=== PATIENT | male | born 1965 | race Caucasian/White ===

== ENCOUNTER → 2016-11-04 | Outpatient (CLI) | payer BC ==
[~2016-11-04] MED LIST: ALBU8.5H2 IH; ALPR1TAB2 PO; FLUT1DIS28 IH; HYDR-3730 PO
== END ==
LOC: PREOP 05:32
PROVIDERS: ATTEND Surgery
DX: Z01.818 Encounter for other preprocedural examination (principal); Z12.11 Encounter for screening for malignant neoplasm of colon

== ENCOUNTER 2016-11-05 07:41 | Day surgery (SDC) | payer BC ==
[~2016-11-05 07:41] MED LIST changes: -ALPR1TAB2 PO; -FLUT1DIS28 IH
[2016-11-05 08:35] VITALS: BP 102/74
[2016-11-05] MEDS ORDERED: NS IV 500 ML 500 ML IV ONE (08:45)
[2016-11-05] MEDS ORDERED: FLUMAZENIL (ROMAZICON) 0.1 MG/ML 5 ML VIAL INJ PRN (08:45)
[2016-11-05] MEDS ORDERED: NALOXONE 0.4 MG/ML 1 ML (NARCAN) VIAL IVP PRN (08:45)
[2016-11-05] MEDS ORDERED: NS IV 500 ML 500 ML ONE (09:05)
[2016-11-05] MEDS ORDERED: FLUT1DIS28 IH (09:09)
[2016-11-05] MEDS ORDERED: ALPR1TAB2 PO (09:09)
[2016-11-05] MEDS ORDERED: MIDAZOLAM 2 MG/2 ML (VERSED) VIAL ONE ×4 (10:37→10:44)
[2016-11-05] MEDS ORDERED: fentaNYL INJECTION 100 MCG/2 ML AMP ONE ×2 (10:37→10:44)
[2016-11-05] MEDS: fentaNYL INJECTION 100 MCG/2 ML AMP IVP PRN ×4 (10:40→10:50)
[2016-11-05] MEDS: MIDAZOLAM 2 MG/2 ML (VERSED) VIAL IVP PRN ×4 (10:41→10:51)
--- NOTE | 2016-11-05 10:50 | Conscious Sedation/ASA ---
Conscious Sedation Pre-Proced ASA Class: 2 Airway Mallampati Classification: ([place] appropriate class) I. II. III, IV Lungs Heart ASA score ASA 1: a normal healthy patient ASA 2: a patient with a mild systemic disease (mid diabetes, controlled hypertension, obesity ASA 3: a patient with a severe systemic disease that limits activity (angina , COPD, prior Myocardial infarction) ASA 4: a patient with an incapacitating disease that is a constant threat to life (CHF, renal failure) ASA 5: a moribund patient not expected to survive 24 hrs. (ruptured aneurysm) ASA 6: a declared brain patient whose organs are being harvested. For emergent operations, add the letter E after the classification Grade 2 Sedation Plan: Discussed options with patient/fam Note The patient is an appropriate candidate to undergo the planned procedure, sedation, and anesthesia. The patient immediately re-assessed prior to indication. JANIS DALLAS MD November 05, 2016 10:50 am
--- NOTE | 2016-11-05 11:09 | Endoscopy Procedure Report ---
Endoscopy Report Date: November 05, 2016 Preoperative Diagnosis: screening Study Performed: Colonoscopy Procedure Instrument: Colonoscope Endo Procedure/Findings Findings 1.: Polyp, Internal Hemorrhoids Recommendations: Recommendations: 1.: Colonoscopy in 2 years Copy Copies To 1: HERNAN MEYER MD, XAVIER M MD November 05, 2016 11:09 am
--- NOTE | 2016-11-05 11:14 | Discharge Inst-Simple/Standard ---
Discharge Inst-Standard Discharge Medications New, Converted or Re-Newed RX: Other Patient Instructions/Follow Up Plan of Care/Instructions/FU: repeat colonoscopy in 2 years Activity as Tolerated: Yes Discharge Diet: No Restrictions JANIS DALLAS MD November 05, 2016 11:14 am
[2016-11-05 11:35] VITALS: BP 111/76
[2016-11-05 11:56] VITALS: BP 114/76
[2016-11-05 11:57] VITALS: BP 114/76
--- NOTE | 2016-11-06 05:24 | OPERATIVE REPORT ---
DATE OF SERVICE: 11/05/2016 PROCEDURES: 1. Screening colonoscopy. 2. Snare polypectomy x1. SURGEON: Janis Dallas MD INDICATION OF PROCEDURE: This gentleman came in for screening colonoscopy. Informed consent was obtained after reviewing the procedure in detail. DESCRIPTION OF PROCEDURE: He was placed in left lateral decubitus position and his vital signs were monitored. Conscious sedation was achieved using Versed and fentanyl. Digital rectal examination was unremarkable. The colonoscope was then introduced in the rectum and advanced all the way up to cecum. The quality of bowel preparation was rather suboptimal. The scope was then withdrawn slowly and mucosa examined in a systematic fashion. FINDINGS: 1. Internal hemorrhoids. 2. A 4 mm polyp at the distal sigmoid colon that was snared and retrieved. He tolerated the procedure well and was taken back to the nursing area in the stable condition. IMPRESSION: Screening colonoscopy. Distal sigmoid polyp excised. Recommend repeat in two years. Job ID: [id number] DocumentID: [id number] Dictated Date: 11/05/2016 11:06:55 Coil Winder Strap Date: 11/06/2016 04:53:08 Dictated By: JANIS DALLAS MD
== END 2016-11-05 12:00 | disposition home or self-care (01) ==
LOC: ENDO 07:41
PROVIDERS: ATTEND Surgery
DX: Z12.11 Encounter for screening for malignant neoplasm of colon (principal); D12.5 Benign neoplasm of sigmoid colon; K64.9 Unspecified hemorrhoids
CPT/HCPCS: 88305

== ENCOUNTER → 2017-01-04 | Outpatient (CLI) | payer BC ==
[~2017-01-04] MED LIST changes: +ALPR1TAB2 PO; +FLUT1DIS28 IH
--- NOTE | 2017-01-04 13:15 | Diagnostic Imaging Report ---
PROCEDURE: CT abdomen and pelvis without contrast. TECHNIQUE: Multiple contiguous axial images were obtained through the abdomen and pelvis without the use of intravenous contrast. INDICATION: Severe abdominal pain. FINDINGS: The lung bases appear clear. The liver, gallbladder, spleen, pancreas, and adrenal glands appear unremarkable for an unenhanced exam. The kidneys demonstrate no hydronephrosis. No urinary tract stones are seen. The urinary bladder is not well distended. There are moderate amounts of fecal material in the colon with no evidence of bowel obstruction. The appendix appears normal. The abdominal aorta is normal in caliber. No periaortic significantly enlarged lymph nodes are seen. No fluid collection in the abdomen or pelvis is noted. The osseous structures demonstrate mild degenerative changes of the SI joints. IMPRESSION: No urinary tract stones. Unremarkable exam. Dictated by: Dictated on workstation # [id number]
== END ==
LOC: RAD 12:43
DX: R10.84 Generalized abdominal pain (principal); K92.1 Melena
CPT/HCPCS: 74176

== ENCOUNTER → 2017-01-07 | Outpatient (CLI) | payer BC ==
[~2017-01-07] MED LIST changes: +PANT40TA2 PO
== END ==
LOC: PREOP 11:38
PROVIDERS: ATTEND Surgery
DX: Z01.818 Encounter for other preprocedural examination (principal); R19.5 Other fecal abnormalities; K21.9 Gastro-esophageal reflux disease without esophagitis

== ENCOUNTER 2017-01-08 06:55 | Day surgery (SDC) | payer BC ==
[~2017-01-08] VITALS: Ht 188 cm; Wt 89.8 kg
[~2017-01-08 06:55] MED LIST changes: -PANT40TA2 PO
[2017-01-08] MEDS ORDERED: NS IV 500 ML 500 ML ONE (07:26)
[2017-01-08] MEDS ORDERED: HURRICAINE EXT TUBE (BENZOCAINE) XX PRN (07:30)
[2017-01-08] MEDS ORDERED: FLUMAZENIL (ROMAZICON) 0.1 MG/ML 5 ML VIAL INJ PRN (07:30)
[2017-01-08] MEDS ORDERED: NALOXONE 0.4 MG/ML 1 ML (NARCAN) VIAL IVP PRN (07:30)
[2017-01-08] MEDS ORDERED: fentaNYL INJECTION 100 MCG/2 ML AMP ONE (07:37)
[2017-01-08] MEDS ORDERED: MIDAZOLAM 2 MG/2 ML (VERSED) VIAL ONE ×4 (07:37)
[2017-01-08] MEDS: NS IV 500 ML 500 ML IV SCH ×3 (07:42→08:23)
[2017-01-08] MEDS: MIDAZOLAM 2 MG/2 ML (VERSED) VIAL IVP PRN ×4 (07:52→08:03)
[2017-01-08] MEDS: fentaNYL INJECTION 100 MCG/2 ML AMP IVP PRN ×2 (07:53→08:00)
--- NOTE | 2017-01-08 08:09 | Conscious Sedation/ASA ---
Conscious Sedation Pre-Proced Time Reviewed: 07:45 ASA Class: 2 Airway Mallampati Classification: ([place] appropriate class) I. II. III, IV Lungs Heart ASA score ASA 1: a normal healthy patient ASA 2: a patient with a mild systemic disease (mid diabetes, controlled hypertension, obesity ASA 3: a patient with a severe systemic disease that limits activity (angina , COPD, prior Myocardial infarction) ASA 4: a patient with an incapacitating disease that is a constant threat to life (CHF, renal failure) ASA 5: a moribund patient not expected to survive 24 hrs. (ruptured aneurysm) ASA 6: a declared brain patient whose organs are being harvested. For emergent operations, add the letter E after the classification Grade 2 Sedation Plan: Discussed options with patient/fam Note The patient is an appropriate candidate to undergo the planned procedure, sedation, and anesthesia. The patient immediately re-assessed prior to indication. JANIS DALLAS MD Jan 08, 2017 8:09 am
--- NOTE | 2017-01-08 08:12 | Endoscopy Procedure Report ---
Endoscopy Report Date: Jan 08, 2017 Preoperative Diagnosis: melena Study Performed: Upper Endoscopy Procedure Instrument: Endoscope Endo Procedure/Findings Findings 1.: Hiatal Hernia, Gastritis Recommendations: Recommendations: 1.: Start Medication(s) Copy Copies To 1: HERNAN MEYER MD, XAVIER M MD Jan 08, 2017 8:12 am
[2017-01-08] MEDS ORDERED: PANT40TA2 PO (08:15)
--- NOTE | 2017-01-08 08:16 | Discharge Inst-Simple/Standard ---
Discharge Inst-Standard Discharge Medications New, Converted or Re-Newed RX: RX on Chart Patient Instructions/Follow Up Plan of Care/Instructions/FU: to avoid nonsteroidals and aspirin. Follow-up with me in 2 weeks Activity as Tolerated: Yes Discharge Diet: No Restrictions JANIS DALLAS MD Jan 08, 2017 8:16 am
[2017-01-08] MEDS ORDERED: HURRICAINE EXT TUBE (BENZOCAINE) ONE (08:17)
[2017-01-08 08:30] VITALS: BP 110/74
[2017-01-08 08:42] VITALS: BP 107/77
[2017-01-08 09:00] VITALS: BP 112/81
[2017-01-08 09:30] VITALS: BP 112/81
--- NOTE | 2017-01-08 11:45 | PROCEDURE REPORT ---
PROCEDURE PHYSICIAN: JANIS DALLAS DATE OF PROCEDURE: 01/08/2017 PROCEDURE: Upper GI endoscopy with antral biopsy. SURGEON: Dr. Dallas. INDICATION FOR THE PROCEDURE: This gentleman has developed new onset of constipation over the past 5 days, along with melena. Once constipation was addressed by magnesium citrate, he returned for an upper endoscopy to evaluate the source of melena. It is notable that he had recently undergone colonoscopy revealing a small adenomatous polyp that was excised. Informed consent was obtained after reviewing the procedure in detail. DESCRIPTION OF PROCEDURE: He was placed in the left lateral decubitus position and his vital signs were monitored. Conscious sedation was achieved using Versed and fentanyl. The flexible gastroscope was introduced down the esophagus, past the stomach, into the proximal duodenum. FINDINGS: ESOPHAGUS: A short hiatal hernia with minimal esophagitis (grade I) extending for less than a centimeter, still in the esophagus. STOMACH: Mild distal gastritis without any ulceration. Biopsies obtained for Helicobacter status. DUODENUM: Normal. He tolerated the procedure well and was taken back to the nursing area in a stable condition. IMPRESSION: Melena. No definitive ulcer found on upper endoscopy. We will use proton pump inhibitors and observe. If melena continues, capsule endoscopy to investigate the small bowel will be obtained. Job ID: [id number] Dictated Date: 01/08/2017 08:15:02 Dehairing Machine Tender Date: 01/08/2017 11:32:39 / tbk
--- OUTSIDE RECORDS SUMMARY | 2017-01-12 06:24 | XMS REPORT | Continuity of Care Document ---
Author Author [facility] Organization [facility] Address Unknown Phone Unavailable Allergies Active Description Code Type Severity Reaction Onset Reported/Identified Relationship to Patient Clinical Status Yes cephalexin [id number] Drug Allergy Unknown N/A 10/26/2014 Yes Penicillins [id number] Drug Allergy Unknown N/A 10/26/2014 Medications Problems Date Dx Coded Attending Type Code Diagnosis Diagnosed By 11/01/2014 EARL BEAL MD Ot 727.40 11/01/2014 EARL BEAL MD Ot V72.84 11/01/2014 EARL BEAL MD Ot 214.8 LIPOMA NEC 03/18/2015 EARL BEAL MD Ot 727.40 03/18/2015 EARL BEAL MD Ot V72.84 11/02/2016 EARL BEAL MD Ot 727.40 SYNOVIAL CYST NOS 11/02/2016 EARL BEAL MD Ot V72.84 EXAM PRE-OPERATIVE NOS 11/02/2016 EARL BEAL MD Ot 727.40 SYNOVIAL CYST NOS 11/02/2016 EARL BEAL MD Ot V72.84 EXAM PRE-OPERATIVE NOS 11/05/2016 EARL BEAL MD Ot 727.40 SYNOVIAL CYST NOS 11/05/2016 EARL BEAL MD Ot V72.84 EXAM PRE-OPERATIVE NOS 11/05/2016 JANIS DALLAS MD Ot D12.5 BENIGN NEOPLASM OF SIGMOID COLON 11/05/2016 JANIS DALLAS MD Ot K64.9 UNSPECIFIED HEMORRHOIDS 11/05/2016 JANIS DALLAS MD Ot Z12.11 ENCOUNTER FOR SCREENING FOR MALIGNANT NE 11/09/2016 JANIS DALLAS MD Ot D12.5 BENIGN NEOPLASM OF SIGMOID COLON 11/09/2016 JANIS DALLAS MD Ot K64.9 UNSPECIFIED HEMORRHOIDS 11/09/2016 JANIS DALLAS MD Ot Z12.11 ENCOUNTER FOR SCREENING FOR MALIGNANT NE 11/10/2016 BURT SHAVER, JANIS Mcdonnell Ot D12.5 BENIGN NEOPLASM OF SIGMOID COLON 11/10/2016 JANIS DALLAS MD Ot K64.9 UNSPECIFIED HEMORRHOIDS 11/10/2016 JANIS DALLAS MD Ot Z12.11 ENCOUNTER FOR SCREENING FOR MALIGNANT NE 01/04/2017 EARL BEAL MD Ot 727.40 SYNOVIAL CYST NOS 01/04/2017 EARL BEAL MD Ot V72.84 EXAM PRE-OPERATIVE NOS 01/04/2017 JANIS DALLAS MD Ot Z01.818 ENCOUNTER FOR OTHER PREPROCEDURAL EXAMIN 01/04/2017 JANIS DALLAS MD Ot Z12.11 ENCOUNTER FOR SCREENING FOR MALIGNANT NE 01/06/2017 YOSELIN MACHUCA MMA FIGHTER Ot K92.1 MELENA 01/06/2017 YOSELIN MACHUCA MMA FIGHTER Ot R10.84 GENERALIZED ABDOMINAL PAIN 01/07/2017 EARL BEAL MD Ot 727.40 SYNOVIAL CYST NOS 01/07/2017 EARL BEAL MD Ot V72.84 EXAM PRE-OPERATIVE NOS 01/07/2017 JANIS DALLAS MD Ot Z01.818 ENCOUNTER FOR OTHER PREPROCEDURAL EXAMIN 01/07/2017 JANIS DALLAS MD Ot Z12.11 ENCOUNTER FOR SCREENING FOR MALIGNANT NE 01/07/2017 YOSELIN MACHUCA L MMA FIGHTER Ot K92.1 MELENA 01/07/2017 YOSELIN MACHUCA MMA FIGHTER Ot R10.84 GENERALIZED ABDOMINAL PAIN Procedures Results Encounters ACCT No. Visit Date/Time Discharge Status Pt. Type Provider Facility Loc./Unit Complaint [id number] 01/08/2017 06:55:00 2016 09:30:00 DIS Outpatient JANIS DALLAS MD [facility] ENDO BLACK TARRY STOOLS/GERD [id number] 11/05/2016 07:41:00 2016 12:00:00 DIS Outpatient JANIS DALLAS MD [facility] ENDO SCREENING [id number] 11/01/2014 09:23:00 2014 13:35:00 DIS Outpatient EARL BEAL MD [facility] SYNOVIAL CYST OF LEFT SHOULDER [id number] 10/26/2014 09:42:00 2014 23:59:59 CLS Outpatient EMIGDIO SHAVER, EARL [facility] PREOP SYNOVIAL CYST TO LEFT SHOULDER [id number] 01/07/2017 11:38:00 ACT Outpatient BURT SHAVER, JANIS Mcdonnell [facility] PREOP EGD [id number] 01/04/2017 12:43:00 ACT Outpatient YOSELIN MACHUCA APRN [facility] RAD SEVERE ABD PAIN [id number] 11/04/2016 05:32:00 ACT Outpatient BURT SHAVER, JANIS Mcdonnell [facility] PREOP SCREENING
== END 2017-01-08 09:30 | disposition home or self-care (01) ==
LOC: ENDO 06:55
PROVIDERS: ATTEND Surgery
DX: K92.1 Melena (principal); K20.9 Esophagitis, unspecified; K29.70 Gastritis, unspecified, without bleeding; K44.9 Diaphragmatic hernia without obstruction or gangrene; K59.00 Constipation, unspecified; J44.9 Chronic obstructive pulmonary disease, unspecified; F41.9 Anxiety disorder, unspecified

== ENCOUNTER 2017-01-26 09:32 | Outpatient (CLI) | payer BC ==
[~2017-01-26] VITALS: Ht 188 cm; Wt 97.5 kg
[~2017-01-26 09:32] MED LIST changes: +PANT40TA2 PO
[2017-01-26] MEDS ORDERED: PANT40TA2 PO ×2 (09:58)
[2017-01-26] MEDS ORDERED: ATOR10TA66 PO ×2 (10:10)
[2017-01-26] MEDS ORDERED: ESCI10TA PO ×2 (10:10)
[2017-01-29] MEDS ORDERED: HYDR-3820 PO ×2 (12:15)
[2017-01-29] MEDS ORDERED: METR500T PO ×2 (12:16)
== END 2017-01-26 10:13 ==
LOC: PREOP 09:32
PROVIDERS: ATTEND Surgery
DX: Z01.818 Encounter for other preprocedural examination (principal); K64.9 Unspecified hemorrhoids

== ENCOUNTER 2017-01-29 07:53 | Day surgery (SDC) | payer BC ==
[~2017-01-29] VITALS: Ht 188 cm; Wt 97.5 kg
[~2017-01-29 07:53] MED LIST changes: +ATOR10TA66 PO; +BUP/EPI 0.25% 1:200,000 (MARCAINE) 10 ML VIAL IJ ONE; +ESCI10TA PO
[2017-01-29] MEDS ORDERED: FAMOTIDINE 20MG/2ML IV (PEPCID) IV ONE (08:30)
[2017-01-29] MEDS ORDERED: RT-ALBUTEROL SULF 2.5 MG/3 ML PRE-MIX VIAL INH ONE (08:30)
[2017-01-29] MEDS ORDERED: ceFAZolin 1 GM/NS 50 ML IVPB IV ONE ×2 (08:30)
[2017-01-29] MEDS: LACTATED RINGERS 1,000 ML IV PRN ×2 (08:42→10:12)
[2017-01-29 08:46] VITALS: BP 113/80
[2017-01-29] MEDS ORDERED: MIDAZOLAM 2 MG/2 ML (VERSED) VIAL ONE (09:20)
[2017-01-29] MEDS ORDERED: fentaNYL INJECTION 100 MCG/2 ML AMP ONE (09:20)
[2017-01-29] MEDS ORDERED: CLINDAMYCIN 600 MG/4ML (CLEOCIN) VIAL ONE (09:25)
[2017-01-29] MEDS ORDERED: NS (IVPB) 50 ML ONE (09:25)
--- NOTE | 2017-01-29 09:25 | Progress Note-Pre Operative ---
Pre-Operative Progress Note H&P Reviewed The H&P was reviewed, patient examined and no changes noted. Date Seen by Provider: Jan 29, 2017 Time Seen by Provider: 09:25 Date H&P Reviewed: Jan 29, 2017 Time H&P Reviewed: :25 Pre-Operative Diagnosis: prolapsing hemorrhoids JANIS DALLAS MD Jan 29, 2017 9:25 am
[2017-01-29] MEDS ORDERED: CLINDAMYCIN 600 MG/NS 50 ML IVPB IV ONE ×2 (09:45)
[2017-01-29] MEDS ORDERED: morphine INJ 10 MG/ML 1ML (SYR OR VIAL) ONE (10:17)
[2017-01-29] MEDS ORDERED: LIDOCAINE PF 2% 5 ML (XYLOCAINE) VIAL ONE (10:30)
[2017-01-29] MEDS ORDERED: proPOfol 200 MG/20 ML (DIPRIVAN) VIAL IV ONE ×2 (10:30→10:31)
[2017-01-29] MEDS ORDERED: SEVOFLURANE (ULTANE) 15 ML INHAL SOLN ONE (10:30)
[2017-01-29] MEDS ORDERED: DEXAMETHASONE PF 10 MG/ML (DECADRON) VIAL ONE (10:31)
[2017-01-29] MEDS ORDERED: LACTATED RINGERS 1,000 ML IV ONE ×2 (10:31)
[2017-01-29] MEDS ORDERED: ROCURONIUM 50 MG/5 ML (ZEMURON) VIAL IV ONE (10:31)
[2017-01-29] MEDS ORDERED: ONDANSETRON 4 MG/2 ML (SDV) Z0FRAN ONE (10:31)
[2017-01-29] MEDS ORDERED: MEPERIDINE (DEMEROL) INJ 50 MG/ML ONE (10:47)
[2017-01-29] MEDS: MEPERIDINE (DEMEROL) INJ 50 MG/ML IVP PRN ×2 (10:50→11:00)
[2017-01-29] MEDS: morphine INJ 10 MG/ML 1ML (SYR OR VIAL) IVP PRN ×2 (11:05→11:10)
[2017-01-29] MEDS ORDERED: PROMETHAZINE INJ 25 MG/ML (PHENERGAN) AMP ONE (11:11)
[2017-01-29] MEDS ORDERED: PROMETHAZINE INJ 25 MG/ML (PHENERGAN) AMP IVP PRN (11:15)
[2017-01-29] MEDS ORDERED: ONDANSETRON 4 MG/2 ML (SDV) Z0FRAN IVP PRN (11:15)
[2017-01-29 11:50] VITALS: BP 127/86
--- NOTE | 2017-01-29 12:14 | Operative Report ---
Operative Report Date of Procedure/Surgery Jan 29, 2017 Surgeon (s) JANIS DALLAS MD Filament Cutter (s): not applicable Post-Operative Diagnosis same Procedure Performed stapled hemorrhoidal pexy Description of Procedure Anesthesia Type: General Estimated blood loss (mL): minimal Specimen(s) collected/removed hemorrhoidal tissue Description of the Procedure Indication for procedure: This gentleman presented with symptomatic prolapsing, grade 3 hemorrhoids requiring surgical therapy. He was offered minimally invasive surgery using stapled hemorrhoidopexy. Informed consent was obtained after reviewing the procedure in detail. Description of the procedure: Initially, he was placed supine on the gurney and general anesthesia induced using an endotracheal tube. Subsequently, he was turned prone onto the operating table and his pressure areas were padded and protected. Sequential compression devices were placed around his legs, to minimize the risk of venous thrombosis. Using the circular dilating anoscope,that was secured with 0 silk sutures, a cuff of rectal mucosa, 4 cm proximal to the dentate line was encircled with 2-0 Prolene suture. The anvil of a 33 mm EEA stapler ( PPH device) was introduced into the rectum and the pursestring tied around it. The stapler was then closed, pressure held for 30 seconds and activated. We obtained a cuff of rectal mucosa, 2 cm wide, which was sent for histologic examination. An area of bleeding along the anterior aspect of the staple line was controlled with a 3-0 Vicryl transfixation suture. Rigid proctoscopy is performed to ensure the intactness of the rectal lumen. The patient was then turned supine before being extubated and taken to the recovery room in a stable condition. Findings of the Procedure [place] operative report Allergies and Home Medications Allergies Coded Allergies: Penicillins (Unverified Allergy, Unknown, 01/26/17) cephalexin (Unverified Allergy, Unknown, 01/26/17) Home Medications Albuterol 8.5 Gm Hfa.aer.ad, 1 PUFF IH RTQ4HR PRN for WHEEZING, (Reported) PRN WHEEZING Alprazolam 1 Mg Tablet, 1 MG PO BID, (Reported) Atorvastatin Calcium 10 Mg Tablet, 10 MG PO HS, (Reported) Escitalopram Oxalate 10 Mg Tablet, 10 MG PO DAILY, (Reported) Fluticasone/Salmeterol 1 Each Blst.w.dev, 1 EACH IH BID, (Reported) Pantoprazole Sodium 40 Mg Tablet.dr, 40 MG PO DAILY, (Reported) JANIS DALLAS MD Jan 29, 2017 12:14 pm
[2017-01-29] MEDS ORDERED: HYDR-3820 PO (12:15)
[2017-01-29] MEDS ORDERED: METR500T PO (12:16)
--- NOTE | 2017-01-29 12:17 | Discharge Inst-Simple/Standard ---
Discharge Inst-Standard Discharge Medications New, Converted or Re-Newed RX: RX on Chart Patient Instructions/Follow Up Plan of Care/Instructions/FU: stool softeners as needed. Follow-up in a month. Activity as Tolerated: No Goal: off work for a week Discharge Diet: No Restrictions JANIS DALLAS MD Jan 29, 2017 12:16 pm
[2017-01-29 12:20] VITALS: BP 122/76
[2017-01-29 12:50] VITALS: BP 112/74
== END 2017-01-29 13:30 | disposition home or self-care (01) ==
LOC: SDC 07:53
PROVIDERS: ATTEND Surgery
DX: K64.2 Third degree hemorrhoids (principal); E78.5 Hyperlipidemia, unspecified; J45.909 Unspecified asthma, uncomplicated; F41.9 Anxiety disorder, unspecified; Z87.891 Personal history of nicotine dependence; Z79.899 Other long term (current) drug therapy
CPT/HCPCS: 87081; 94640; 94664

== ENCOUNTER → 2017-02-04 | Outpatient (CLI) | payer BC ==
[~2017-02-04] MED LIST changes: -BUP/EPI 0.25% 1:200,000 (MARCAINE) 10 ML VIAL IJ ONE; +CYCL10TA9 PO; +HYDR-3820 PO; +METR500T PO; +TRAM-42 PO
--- NOTE | 2017-02-04 11:46 | Diagnostic Imaging Report ---
Right upper extremity vascular duplex ultrasound of the veins. INDICATION: Phlebitis. Pain in the right arm after IV access at the antecubital fossa. Findings: There is a thrombosis seen in the basilic vein which extends from the antecubital fossa to its course in the arm without extending into the deep veins. The right internal jugular, subclavian, axillary, brachial, radial and the ulnar veins are patent with color-flow, compressibility applicable and normal venous waveforms seen. Impression: Superficial venous stenosis involving the basilic vein from the antecubital fossae to the proximal arm without extending into the deep veins. Report was faxed to office of Dr. Fairchild by anish at 11:48 am. Dictated by: Dictated on workstation # [id number]
== END ==
LOC: RAD 10:32
PROVIDERS: ATTEND Surgery
DX: I82.601 Acute embolism and thrombosis of unspecified veins of right upper extremity (principal)

== ENCOUNTER 2017-02-17 20:45 | Emergency (ER) | payer BC ==
[~2017-02-17] VITALS: Ht 188 cm; Wt 97.5 kg
[~2017-02-17 20:45] MED LIST changes: -CYCL10TA9 PO; -TRAM-42 PO
[2017-02-17 21:06] LABS: BASOPHILS % (AUTO) 0 % (0-10); EOSINOPHILS # (AUTO) 0.2 10^3/uL (0.0-0.3); EOSINOPHILS % (AUTO) 3 % (0-10); LYMPHOCYTES # (AUTO) 2.4 X 10^3 (1.0-4.0); LYMPHOCYTES % (AUTO) 27 % (12-44); MEAN CORPUSCULAR HEMOGLOBIN 31 PG (25-34); MEAN CORPUSCULAR HGB CONC 35 G/DL (32-36); MEAN CORPUSCULAR VOLUME 89 FL (80-99); MEAN PLATELET VOLUME 9.5 FL (7.4-10.4); MONOCYTES # (AUTO) 1.1 X 10^3 (0.0-1.0); MONOCYTES % (AUTO) 13 % (0-12); NEUTROPHILS # (AUTO) 5.1 X 10^3 (1.8-7.8); NEUTROPHILS % (AUTO) 57 % (42-75); PLATELET COUNT 282 10^3/uL (130-400); RED BLOOD COUNT 4.38 10^6/uL (4.35-5.85); WHITE BLOOD COUNT 8.9 10^3/uL (4.3-11.0)
--- NOTE | 2017-02-17 21:14 | ED Chest Pain ---
General Chief Complaint: General Problems/Pain Stated Complaint: RT ARM PAIN Source: patient, EMS History of Present Illness Time seen by provider: 20:46 Initial Comments PT ARRIVES [facility]IA [facility] FROM HOME IN [place] CALLED EMS FOR CHEST PAIN/PAIN IN RIGHT AXILLA, ON ARRIVAL AT SCENE, EMS REPORT THAT PT WAS COMPLETELY HYSTERICAL AND HYPERVENTILATING AND HAVING SEVERE CARPAL- PEDAL SPASMS. EMS GAVE ATIVAN X 2 MG TOTAL PLUS 25 MCG FENTANYL WITH IMPROVEMENT IN SYMPTOMS PT STATES HE WAS SITTING/LAYING AND WATCHING TV TONIGHT BETWEEN 1800 AND 1900 AND STATES HIS RIGHT ARM FELL ASLEEP, AND BEGAN TO HAVE PAIN IN RIGHT AXILLA AND RIGHT SIDE OF CHEST--ANTERIOR AND POSTERIOR, THEN BEGAN TO FEEL SHORT OF BREATH. PT STATES LAST PM AROUND 2200, HE WAS HAVING NUMBNESS AND TINGLING IN IN RIGHT FINGERTIPS AND HAND AND WRIST, AND "THE VEINS IN MY ARM WOULD STICK OUT AND YOU COULD SEE ALL THE CLOTS IN THE VEINS" STATES HE COULDN'T SLEEP, BUT WORKED ALL DAY TODAY AND DID NOT HAVE ANY PROBLEMS PT HAD HEMORRHOIDECTOMY 3 WEEKS AGO--01/29/[address] DALLAS BEGAN TO HAVE RIGHT ARM SWELLING AND PAIN AND NUMBNESS/TINGLING AND WAS SEEN AT HOSPITAL IN [place], [place] AND DX WITH BLOOD CLOTS IN RIGHT ARM--FELT TO BE FROM IV SITE FROM SURGERY--STARTED ON [facility]--WAS THERE 02/12/17 HAS AN APPOINTMENT WITH [facility] IN [place] ON Wednesday02/23/17 PT HAD OUTPATIENT ULTRASOUND OF RIGHT ARM DONE HERE 02/04/17, ORDERED BY DR. DALLAS, AND SHOWED SUPERFICIAL VENOUS THROMBUS FROM AC FOSSA TO PROXIMAL ARM, WITHOUT INVOLVEMENT OF DEEP VEINS. NO RX PRESCRIBED, PER PT. SWELLING IS GONE IN ARM, AND PAIN AND NUMBNESS AND TINGLING HAD BEEN GONE UNTIL LAST EVENING. NO FEVER + MILD NON-PRODUCTIVE COUGH NO SWELLING IN ARMS OR LEGS HAS NOT ATTEMPTED TO CONTACT OR FOLLOW UP WITH DR. MEYER FOR THESE PROBLEMS PCP: DR. MEYER SURGEON: DR. DALLAS Allergies and Home Medications Allergies Coded Allergies: Penicillins (Unverified Allergy, Unknown, 01/26/17) cephalexin (Unverified Allergy, Unknown, 01/26/17) Home Medications Albuterol 8.5 Gm Hfa.aer.ad, 1 PUFF IH RTQ4HR PRN for WHEEZING, (Reported) PRN WHEEZING Alprazolam 1 Mg Tablet, 1 MG PO BID, (Reported) Atorvastatin Calcium 10 Mg Tablet, 10 MG PO HS, (Reported) Cyclobenzaprine HCl 10 Mg Tablet, 10 MG PO Q8H, #15 Prescribed by: VENKAT CAMPOS on 02/17/17 2322 Escitalopram Oxalate 10 Mg Tablet, 10 MG PO DAILY, (Reported) Fluticasone/Salmeterol 1 Each Blst.w.dev, 1 EACH IH BID, (Reported) Hydrocodone/Acetaminophen 1 Each Tablet, 1 TAB PO Q4H PRN for PAIN-MILD TO MODERATE, #30 Ref 0 Prescribed by: JANIS DALLAS on 01/29/17 1215 Metronidazole 500 Mg Tablet, 500 MG PO TID for 5 Days, #15 Ref 0 Prescribed by: JANIS DALLAS on 01/29/17 1216 Pantoprazole Sodium 40 Mg Tablet.dr, 40 MG PO DAILY, (Reported) Tramadol HCl 50 Mg Tablet, 50 MG PO Q4H, #20 Prescribed by: VENKAT CAMPOS on 02/17/17 2322 Review of Systems Constitutional: see HPI EENTM: No Symptoms Reported Respiratory: See HPI, Cough, Shortness of Air, Denies Wheezing Cardiovascular: See HPI, Chest Pain, Denies Edema, Denies Lightheadedness, Denies Palpitations, Denies Syncope Gastrointestinal: No Symptoms Reported Genitourinary: No Symptoms Reported Musculoskeletal: see HPI Skin: no symptoms reported Psychiatric/Neurological: See HPI, Anxiety, Denies Headache, Numbness, Paresthesia, Tingling, Denies Weakness Endocrine: No Symptoms Reported Hematologic/Lymphatic: No Symptoms Reported Past Aypzkpt-Zpnvlb-Czxgxv Hx Patient Social History Alcohol Use: Denies Use Recreational Drug Use: Yes (DENIES , BUT TESTED + FOR THC ON 02/17/17) Smoking Status: Current Everyday Smoker (QUIT SMOKING REGULAR CIGARETTES--1/2 PPD--5 YEARS AGO, NOW SMOKES E-CIGARETTES) Type Used: Cigarettes, Electronic/Vapor Recent Hopitalizations: Yes Immunizations Up To Date Tetanus Booster (TDap): Unknown Seasonal Allergies Seasonal Allergies: Yes Surgeries HX Surgeries: Yes (SINUS SX, EYE SX FOR LAZY EYE, BILATERAL KNEE SCOPES, 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; BENIGN TUMOR/SYNOVIAL CYST NEAR LEFT SHOULDER; SINUS SURGERY; HEMORRHOIDECTOMY; EGD) Surgeries: Eye Surgery, Orthopedic, Rectal Respiratory Hx Respiratory Disorders: Yes Respiratory Disorders: Asthma Cardiovascular Hx Cardiac Disorders: Yes (DVT RIGHT ARM 02/2017 POST-OP) Cardiac Disorders: Deep Vein Thrombosis, High Cholesterol Neurological Hx Neurological Disorders: Yes Neurological Disorders: Headaches /Migraines Reproductive System Hx Reproductive Disorders: No Sexually Transmitted Disease: No HIV/AIDS: No Genitourinary Hx Genitourinary Disorders: No Gastrointestinal Hx Gastrointestinal Disorders: Yes (HEMORRHOIDS; GASTRITIS) Gastrointestinal Disorders: Gastroesophageal Reflux, Chronic Constipation, Polyps, Esophagitis, Hiatal Hernia Musculoskeletal Hx Musculoskeletal Disorders: No Endocrine Hx Endocrine Disorders: No HEENT HX ENT Disorders: Yes (READING GLASSES) Loss of Vision: Bilateral Hearing Impairment: Denies Cancer Hx Cancer: No Psychosocial Hx Psychiatric Problems: Yes Behavioral Health Disorders: Anxiety Integumentary HX Skin/Integumentary Disorder: No Blood Transfusions Hx Blood Disorders: No Adverse Reaction to a Blood Tr: No (N/A) Physical Exam Vital Signs Vital Sign - Last 12Hours 02/17/17 20:45 Temp 97.6 Pulse 61 Resp 20 B/P (MAP) 115/87 Pulse Ox 96 O2 Delivery Room Air Capillary Refill : General Appearance: No Apparent Distress, Anxious (VERY ANXIOUS, HYPERVENTILATING, TALKS RAPIDLY NON-STOP), Other (PT HOLDING RIGHT ARM VERY STIFF AND CONSTANTLY FLEXING/TENSING ARM AND RUBBING AXILLA AND LATERAL PECTORAL MUSCLE AREA.) HEENT: PERRL/EOMI Neck: Full Range of Motion, Normal Inspection, Non Tender, Supple, No Carotid Bruit, No JVD Respiratory: Normal Breath Sounds, Other (HYPERVENTILATING; TENDERNESS TO RIGHT AXILLA AND LATERAL PECTORAL MUSCLE AREA. PALPATION REPRODUCES PAIN) Cardiovascular: Regular Rate, Rhythm, No Edema, No JVD, No Murmur, Normal Peripheral Pulses Gastrointestinal: Normal Bowel Sounds, No Organomegaly, No Pulsatile Mass, Non Tender, Soft Extremity: Normal Capillary Refill, Normal Inspection, Normal Range of Motion, Non Tender, No Calf Tenderness, No Pedal Edema, Other (MILD TENDERNESS TO RIGHT AXILLA/LATERAL PECTORAL AREA--PALPATION REPRODUCES PAIN ) Neurologic/Psychiatric: Alert, Oriented x3, No Motor/Sensory Deficits, outreach manager II- XII Norm as Tested Skin: Normal Color, Warm/Dry Progress/Results/Core Measures Results/Orders Lab Results Laboratory Tests Test 02/17/17 20:55 02/17/17 21:23 Range/Units White Blood Count 8.9 4.3-11.0 10^3/uL Red Blood Count 4.38 4.35-5.85 10^6/uL Hemoglobin 13.6 13.3-17.7 G/DL Hematocrit 39 L 40-54 % Mean Corpuscular Volume 89 80-99 FL Mean Corpuscular Hemoglobin 31 25-34 PG Mean Corpuscular Hemoglobin Concent 35 32-36 G/DL Red Cell Distribution Width 12.0 10.0-14.5 % Platelet Count 282 130-400 10^3/uL Mean Platelet Volume 9.5 7.4-10.4 FL Neutrophils (%) (Auto) 57 42-75 % Lymphocytes (%) (Auto) 27 12-44 % Monocytes (%) (Auto) 13 H 0-12 % Eosinophils (%) (Auto) 3 0-10 % Basophils (%) (Auto) 0 0-10 % Neutrophils # (Auto) 5.1 1.8-7.8 X 10^3 Lymphocytes # (Auto) 2.4 1.0-4.0 X 10^3 Monocytes # (Auto) 1.1 H 0.0-1.0 X 10^3 Eosinophils # (Auto) 0.2 0.0-0.3 10^3/uL Basophils # (Auto) 0.0 0.0-0.1 10^3/uL Prothrombin Time 17.4 H 12.2-14.7 SEC INR Comment 1.4 0.8-1.4 Activated Partial Thromboplast Time 37 H 24-35 SEC Sodium Level 141 135-145 MMOL/L Potassium Level 3.6 3.6-5.0 MMOL/L Chloride Level 110 H 98-107 MMOL/L Carbon Dioxide Level 22 21-32 MMOL/L Anion Gap 9 5-14 MMOL/L Blood Urea Nitrogen 22 H 7-18 MG/DL Creatinine 1.07 0.60-1.30 MG/DL Estimat Glomerular Filtration Rate > 60 BUN/Creatinine Ratio 21 Glucose Level 102 70-105 MG/DL Calcium Level 9.1 8.5-10.1 MG/DL Total Bilirubin 0.4 0.1-1.0 MG/DL Aspartate Amino Transf (AST/SGOT) 85 H 5-34 U/L Alanine Aminotransferase (ALT/SGPT) 168 H 0-55 U/L Alkaline Phosphatase 81 40-136 U/L Total Creatine Kinase 58 30-200 U/L Creatine Kinase MB 0.5 <6.6 NG/ML Troponin I < 0.30 <0.30 NG/ML B-Type Natriuretic Peptide < 10.0 <100.0 PG/ML Total Protein 6.2 L 6.4-8.2 GM/DL Albumin 3.8 3.2-4.5 GM/DL Amylase Level 79 25-125 U/L Lipase 49 8-78 U/L Serum Alcohol < 10 <10 MG/DL Urine Opiates Screen NEGATIVE NEGATIVE Urine Oxycodone Screen NEGATIVE NEGATIVE Urine Methadone Screen NEGATIVE NEGATIVE Urine Propoxyphene Screen NEGATIVE NEGATIVE Urine Barbiturates Screen NEGATIVE NEGATIVE Ur Tricyclic Antidepressants Screen NEGATIVE NEGATIVE Urine Phencyclidine Screen NEGATIVE NEGATIVE Urine Amphetamines Screen NEGATIVE NEGATIVE Urine Methamphetamines Screen NEGATIVE NEGATIVE Urine Benzodiazepines Screen POSITIVE H NEGATIVE Urine Cocaine Screen NEGATIVE NEGATIVE Urine Cannabinoids Screen POSITIVE H NEGATIVE My Orders Orders - VENKAT CAMPOS DO Amylase (02/17/17 21:01) Cbc With Automated Diff (02/17/17 21:) Comprehensive Metabolic Panel (02/17/17 21:) Creatine Kinase (02/17/17 21:) Creatine Kinase Mb (02/17/17 21:) Lipase (02/17/17 21:01) Partial Thromboplastin Time (02/17/17 21:) Protime With Inr (02/17/17 21:) Troponin I (02/17/17 21:01) Chest 1 View, Ap/Pa Only (02/17/17 21:01) O2 (02/17/17 21:) Ekg Tracing (02/17/17 21:) Aspirin Chewable Tablet (Baby Aspirin Ch (02/17/17 21:15) Rx-Nitroglycerin Sl Tabs (Rx-Nitrostat S (02/17/17 21:15) BNP (02/17/17 21:01) Monitor-Rhythm Ecg Trace Only (02/17/17 21:01) Alcohol (02/17/17 21:01) Drug Screen Stat (Urine) (02/17/17 21:01) Hepatitis Panel Acute (02/17/17 21:32) Ct Angio Chest W (02/17/17 21:33) Lorazepam Injection (Ativan Injection) (02/17/17 22:00) Iohexol Injection (Omnipaque 350 Mg/Ml 1 (02/17/17 22:00) Ns (Ivpb) (Sodium Chloride 0.9% Ivpb Bag (02/17/17 22:00) Ketorolac Injection (Toradol Injection) (02/17/17 23:15) Rx-Cyclobenzaprine Tablet (Rx-Flexeril T (02/17/17 23:23) Rx-Tramadol Hcl (Rx-Ultram) (02/17/17 23:23) Medications Given in ED Current Medications Medications Dose Ordered Sig/Nubia Route Start Time Stop Time Status Last Admin Dose Admin Aspirin 324 mg ONCE ONCE PO 02/17/17 21:15 02/17/17 21:16 DC 02/17/17 21:04 324 MG Iohexol 125 ml ONCE ONCE IV 02/17/17 22:00 02/17/17 22:06 DC 02/17/17 22:11 125 ML Ketorolac Tromethamine 30 mg ONCE ONCE IVP 02/17/17 23:15 02/17/17 23:16 DC 02/17/17 23:14 30 MG Lorazepam 2 mg ONCE ONCE IVP 02/17/17 22:00 02/17/17 22:01 DC 02/17/17 22:05 2 MG Nitroglycerin 0.4 mg UD PRN SL 02/17/17 21:15 02/17/17 23:44 DC 02/17/17 21:06 0.4 MG Sodium Chloride 80 ml ONCE ONCE IV 02/17/17 22:00 02/17/17 22:06 DC 02/17/17 22:11 80 ML Vital Signs/I&O Vital Sign - Last 12Hours 02/17/17 02/17/17 20:45 23:33 Temp 97.6 97.8 Pulse 61 71 Resp 20 21 B/P (MAP) 115/87 Pulse Ox 96 97 O2 Delivery Room Air Room Air Progress Note : Progress Note NO CHEST PAIN IN ER PT BECAME ANXIOUS WHEN HE GOT TO CT SCAN--ATIVAN GIVEN WITH IMPROVEMENT 1110--C/O PAIN IN RIGHT AXILLA--TORADOL GIVEN. SYMPTOMS RESOLVED. ECG Initial ECG Impression Time: 21:05 Initial ECG Rate: 59 Initial ECG Rhythm: Normal Sinus Initial ECG Impression: Normal Initial ECG Comparisson: No Previous ECG Available Diagnostic Imaging Comments CXR--NO ACUTE PROCESS, PER RADIOLOGIST REPORT @ 0775 CT CHEST ANGIOGRAM--NO P.E., TRACE PERICARDIAL EFFUSION, CORONARY ARTERY ATHEROSCLEROTIC CALCIFICATIONS NOTED. NO ACUTE PROCESS, PER [facility] VIA FAX @ 0200 Reviewed: Reviewed by Me Departure Impression Impression: Primary Impression: Right-sided chest wall pain Additional Impressions: RECENT SUPERFICIAL THROMBOPHLEBITIS OF RIGHT ARM, POST-OP/IV INSERTION SITE Severe anxiety with panic Anxiety hyperventilation Disposition: HOME, SELF-CARE Condition: Improved Departure-Patient Inst. Referrals: HERNAN MEYER MD (PCP/Family) Primary Care Physician Patient Instructions: Anxiety, Adult (DC), Chest Pain That Is Not Caused by the Heart (DC), Hyperventilation, Muscle and Bone Pain (DC), Superficial Phlebitis Add. Discharge Instructions: MOIST HEAT TO AREA AT 20 MINUTE INTERVALS CONTINUE YOUR MEDICATIONS PRESCRIBED FOLLOW UP WITH DR. MEYER IN 2-3 DAYS KEEP YOUR APPOINTMENT WITH [facility] NEXT WEEK SCHEDULED RETURN TO ER IF SYMPTOMS WORSEN All discharge instructions reviewed with patient and/or family. Voiced understanding. Scripts Cyclobenzaprine HCl (Cyclobenzaprine HCl) 10 Mg Tablet 10 MG PO Q8H, #15 TAB Prov: VENKAT CAMPOS DO 02/17/17 Tramadol HCl (Ultram) 50 Mg Tablet 50 MG PO Q4H, #20 TAB Prov: VENKAT CAMPOS DO 02/17/17 VENKAT CAMPOS DO Feb 17, 2017 21:14
[2017-02-17] MEDS ORDERED: RX-NITROGLYCERIN 0.4 MG TAB BTL 25'S SL PRN (21:15)
[2017-02-17] MEDS ORDERED: ASPIRIN 81 MG CHEW (CHILDREN'S ASA) PO ONE (21:15)
[2017-02-17 21:16] LABS: INR 1.4 (0.8-1.4); PROTHROMBIN TIME PATIENT 17.4 SEC (12.2-14.7)
[2017-02-17 21:30] LABS: ALANINE AMINOTRANSFERASE 168 U/L (0-55); ALBUMIN 3.8 GM/DL (3.2-4.5); ALCOHOL < 10 MG/DL (<10); AMYLASE 79 U/L (25-125); ANION GAP 9 MMOL/L (5-14); ASPARTATE AMINO TRANSFERASE 85 U/L (5-34); BILIRUBIN,TOTAL 0.4 MG/DL (0.1-1.0); BLOOD UREA NITROGEN 22 MG/DL (7-18); BUN/CREATININE RATIO 21; CALCIUM 9.1 MG/DL (8.5-10.1); CARBON DIOXIDE 22 MMOL/L (21-32); CHLORIDE 110 MMOL/L (98-107); CREATINE KINASE 58 U/L (30-200); CREATININE SERUM 1.07 MG/DL (0.60-1.30); GFR ESTIMATED > 60; GLUCOSE 102 MG/DL (70-105); LIPASE 49 U/L (8-78); POTASSIUM 3.6 MMOL/L (3.6-5.0); SODIUM 141 MMOL/L (135-145); TOTAL PROTEIN 6.2 GM/DL (6.4-8.2)
[2017-02-17 21:37] LABS: TROPONIN I < 0.30 NG/ML (<0.30)
--- NOTE | 2017-02-17 21:39 | Diagnostic Imaging Report ---
INDICATION: Chest pain COMPARISON: None FINDINGS: Single frontal view of the chest demonstrates normal heart size and pulmonary vascularity. The lungs are well aerated and clear. No large pleural effusion or pneumothorax is seen. The visualized osseous structures show no acute abnormalities. IMPRESSION: 1. No acute cardiopulmonary process. Dictated by: Dictated on workstation # [id number]
[2017-02-17] MEDS ORDERED: LORazepam INJ 2 MG/ML (ATIVAN) VIAL IVP ONE (22:00)
[2017-02-17] MEDS ORDERED: NS 100 ML (IVPB) BAG IV ONE (22:00)
[2017-02-17] MEDS ORDERED: IOHEXOL 350 MG/ML 150 ML (OMNIPAQUE 350) VIAL IV ONE (22:00)
[2017-02-17] MEDS ORDERED: KETOROLAC 30 MG/ML VIAL IVP ONE (23:15)
[2017-02-17] MEDS ORDERED: CYCL10TA9 PO (23:22)
[2017-02-17] MEDS ORDERED: TRAM-42 PO (23:22)
[2017-02-17] MEDS ORDERED: RX-CYCLOBENZAPRINE 10 MG (FLEXERIL) TAB PPK#3 PO STA (23:23)
[2017-02-17] MEDS ORDERED: RX-TRAMADOL 50 MG (ULTRAM) TAB PPK#4 PO STA (23:23)
[2017-02-17 23:33] VITALS: BP 99/65
--- NOTE | 2017-02-18 09:52 | Diagnostic Imaging Report ---
PROCEDURE: CT angiography of the chest with contrast. TECHNIQUE: Multiple contiguous axial images were obtained through the chest after uneventful bolus administration of intravenous contrast. Reconstructed CTA MIP acquisitions were also performed. INDICATION: Chest pain and right arm pain. Comparison study: CT of the abdomen/ pelvis from 01/04/2017. FINDINGS: No pulmonary emboli, aortic dissection, or aneurysm is present. Heart size is normal. No pleural or pericardial effusions are present. There is no abnormal adenopathy. Visualized portions of the abdomen appear normal. The lungs are clear. IMPRESSION: Normal CTA of the chest. Dictated by: Dictated on workstation # [id number]
== END 2017-02-17 23:33 | disposition home or self-care (01) ==
LOC: EDUNIT# 20:45 → ER 20:46
DX: R07.89 Other chest pain (principal)
CPT/HCPCS: 36415; 71010; 71275; 80053; 80074; 80306; 80320; 82150; 82550; 82553; 83690; 83880; 84484; 85025; 85610; 85730; 93041; 96374; 96375

== ENCOUNTER → 2017-10-08 | Outpatient (CLI) | payer BC ==
[~2017-10-08] MED LIST changes: +CYCL10TA9 PO; +TRAM-42 PO
--- NOTE | 2017-10-08 10:07 | Diagnostic Imaging Report ---
PA and lateral chest at 925 hours. INDICATION: Chest wall pain. FINDINGS: Heart size is within normal limits and stable when compared to 02/17/2017. The epicardial fat pad near the apex of the heart seen on the prior study is again evident. The lungs are clear and perhaps mildly hyperexpanded. There is no evidence for failure, pneumonia or for pleural effusion. The mediastinum is not widened. The osseous structures are intact. The long-standing fracture of left clavicle seen previously is not well-visualized on this exam. There may also be a long-standing fracture of the tip of the right clavicle. There is no acute bony abnormality identified. IMPRESSION: There is no evidence for an acute cardiopulmonary abnormality. Dictated by: Dictated on workstation # [id number]
== END ==
LOC: RAD 08:48
PROVIDERS: ATTEND Family Medicine
DX: R07.89 Other chest pain (principal)
CPT/HCPCS: 71046

== ENCOUNTER 2018-09-05 23:03 | Emergency (ER) | payer BC ==
[~2018-09-05] VITALS: Ht 188 cm; Wt 99.8 kg
--- OUTSIDE RECORDS SUMMARY | 2018-09-05 23:11 | XMS REPORT | Continuity of Care Document ---
Author Author [facility] Organization [facility] Address Unknown Phone Unavailable Allergies Active Description Code Type Severity Reaction Onset Reported/Identified Relationship to Patient Clinical Status Yes cephalexin [id number] Drug Allergy Unknown N/A 01/26/2017 Yes Penicillins [id number] Drug Allergy Unknown N/A 01/26/2017 Medications There is no data. Problems Date Dx Coded Attending Type Code [...] ENCOUNTER FOR SCREENING FOR MALIGNANT NE 01/04/2017 EMIGDIO SHAVER, EARL Ot 727.40 SYNOVIAL CYST NOS 01/04/2017 EARL BEAL MD Ot V72.84 EXAM PRE-OPERATIVE NOS 01/04/2017 JANIS DALLAS MD Ot Z01.818 ENCOUNTER FOR OTHER PREPROCEDURAL EXAMIN 01/04/2017 JANIS DALLAS MD Ot Z12.11 ENCOUNTER FOR SCREENING FOR MALIGNANT NE 01/06/2017 MACHUCAYOSELIN BALDWIN ALGEBRA TUTOR Ot K92.1 MELENA 01/06/2017 YOSELIN MACHUCA L ALGEBRA TUTOR Ot R10.84 GENERALIZED ABDOMINAL PAIN 01/07/2017 EARL BEAL MD Ot 727.40 SYNOVIAL CYST NOS 01/07/2017 EARL BEAL MD Ot V72.84 EXAM PRE-OPERATIVE NOS 01/07/2017 BURT SHAVER, JANIS Mcdonnell Ot Z01.818 ENCOUNTER FOR OTHER PREPROCEDURAL EXAMIN 01/07/2017 JANIS DALLAS MD Ot Z12.11 ENCOUNTER FOR SCREENING FOR MALIGNANT NE 01/07/2017 CHASE MACHUCAI L ALGEBRA TUTOR Ot K92.1 MELENA 01/07/2017 CHASE MACHUCAI L ALGEBRA TUTOR Ot R10.84 GENERALIZED ABDOMINAL PAIN 01/08/2017 BURT SHAVER, JANIS Mcdonnell Ot F41.9 ANXIETY DISORDER, UNSPECIFIED 01/08/2017 BURT SHAVER, JANIS Mcdonnell Ot J44.9 CHRONIC OBSTRUCTIVE PULMONARY DISEASE, U 01/08/2017 JANIS DALLAS MD Ot K20.9 ESOPHAGITIS, UNSPECIFIED 01/08/2017 JANIS DALLAS MD Ot K29.70 GASTRITIS, UNSPECIFIED, WITHOUT BLEEDING 01/08/2017 JANIS DALLAS MD Ot K44.9 DIAPHRAGMATIC HERNIA WITHOUT OBSTRUCTION 01/08/2017 JANIS DALLAS MD Ot K59.00 CONSTIPATION, UNSPECIFIED 01/08/2017 JANIS DALLAS MD Ot K92.1 MELENA 01/26/2017 JANIS DALLAS MD, Ot K64.9 UNSPECIFIED HEMORRHOIDS 01/26/2017 BURT SHAVER, JANIS Mcdonnell Ot Z01.818 ENCOUNTER FOR OTHER PREPROCEDURAL EXAMIN 01/27/2017 JANIS DALLAS MD Ot K64.9 UNSPECIFIED HEMORRHOIDS 01/27/2017 BURT SHAVER, JANIS Mcdonnell Ot Z01.818 ENCOUNTER FOR OTHER PREPROCEDURAL EXAMIN 01/29/2017 JANIS DALLAS MD Ot E78.5 HYPERLIPIDEMIA, UNSPECIFIED 01/29/2017 JANIS DALLAS MD Ot F41.9 ANXIETY DISORDER, UNSPECIFIED 01/29/2017 BURT SHAVER, JANIS Mcdonnell Ot J45.909 UNSPECIFIED ASTHMA, UNCOMPLICATED 01/29/2017 BURT SHAVER, JANIS Mcdonnell Ot K64.2 THIRD DEGREE HEMORRHOIDS 01/29/2017 BURT SHAVER, JANIS Mcodnnell Ot Z79.899 OTHER ACADEMY DIRECTOR (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 THERAPY 01/29/2017 JANIS DALLAS MD Ot Z87.891 PERSONAL HISTORY OF NICOTINE DEPENDENCE 02/04/2017 EMIGDIO SHAVER, EARL Ot 727.40 SYNOVIAL CYST NOS 02/04/2017 EARL BEAL MD Ot V72.84 EXAM PRE-OPERATIVE NOS 02/04/2017 BURT SHAVER, JANIS Mcdonnell Ot Z01.818 ENCOUNTER FOR OTHER PREPROCEDURAL EXAMIN 02/04/2017 JANIS DALLAS MD Ot Z12.11 ENCOUNTER FOR SCREENING FOR MALIGNANT NE 02/04/2017 YOSELIN MACHUCA ALGEBRA TUTOR Ot K92.1 MELENA 02/04/2017 YOSELIN MACHUCA ALGEBRA TUTOR Ot R10.84 GENERALIZED ABDOMINAL PAIN 02/04/2017 JANIS DALLAS MD Ot K21.9 GASTRO-ESOPHAGEAL REFLUX DISEASE WITHOUT 02/04/2017 JANIS DALLAS MD Ot R19.5 OTHER FECAL ABNORMALITIES 02/04/2017 JANIS DALLAS MD Ot Z01.818 ENCOUNTER FOR OTHER PREPROCEDURAL EXAMIN 02/10/2017 YOSELIN MACHUCA ALGEBRA TUTOR Ot K92.1 MELENA 02/10/2017 YOSELIN MACHUCA ALGEBRA TUTOR Ot R10.84 GENERALIZED ABDOMINAL PAIN 02/12/2017 JANIS DALLAS MD Ot E78.5 HYPERLIPIDEMIA, UNSPECIFIED 02/12/2017 JANIS DALLAS MD Ot F41.9 ANXIETY DISORDER, UNSPECIFIED 02/12/2017 BURT SHAVER, JANIS Mcdonnell Ot J45.909 UNSPECIFIED ASTHMA, UNCOMPLICATED 02/12/2017 BURT SHAVER, JANIS Mcdonnell Ot K64.2 THIRD DEGREE HEMORRHOIDS 02/12/2017 BURT SHAVER, JANIS Mcdonnell Ot Z79.899 OTHER SKILLED NURSING (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 THERAPY 02/12/2017 BURT SHAVER, JANIS Mcdonnell Ot Z87.891 PERSONAL HISTORY OF NICOTINE DEPENDENCE 02/17/2017 BETH DO, VENKAT K Ot E78.00 PURE HYPERCHOLESTEROLEMIA, UNSPECIFIED 02/17/2017 BETH DO, VENKAT K Ot F41.0 PANIC DISORDER WITHOUT AGORAPHOBIA 02/17/2017 BETH DO, VENKAT K Ot F41.9 ANXIETY DISORDER, UNSPECIFIED 02/17/2017 BETH DO, VENKAT K Ot G43.909 MIGRAINE, UNSP, NOT INTRACTABLE, WITHOUT 02/17/2017 BETH DO, VENKAT K Ot I80.8 PHLEBITIS AND THROMBOPHLEBITIS OF OTHER 02/17/2017 BETH DO, VENKAT K Ot J45.909 UNSPECIFIED ASTHMA, UNCOMPLICATED 02/17/2017 BETH DO, VENKAT K Ot K21.9 GASTRO-ESOPHAGEAL REFLUX DISEASE WITHOUT 02/17/2017 BETH DO, VENKAT K Ot R07.89 OTHER CHEST PAIN 02/17/2017 BETH DO VENKAT K Ot Z86.010 PERSONAL HISTORY OF COLONIC POLYPS 02/17/2017 BETH DO VENKAT K Ot Z86.718 PERSONAL HISTORY OF OTHER VENOUS THROMBO 02/17/2017 BETH DO VENKAT K Ot Z87.19 PERSONAL HISTORY OF OTHER DISEASES OF TH 02/17/2017 BETH DO VENKAT K Ot Z87.891 PERSONAL HISTORY OF NICOTINE DEPENDENCE 02/19/2017 BTEH DO, VENKAT K Ot R07.89 OTHER CHEST PAIN 02/22/2017 BETH DO, VENKAT K Ot E78.00 PURE HYPERCHOLESTEROLEMIA, UNSPECIFIED 02/22/2017 BETH DO, VENKAT K Ot F41.0 PANIC DISORDER WITHOUT AGORAPHOBIA 02/22/2017 BETH DO VENKAT K Ot F41.9 ANXIETY DISORDER, UNSPECIFIED 02/22/2017 BETH DO VENKAT K Ot G43.909 MIGRAINE, UNSP, NOT INTRACTABLE, WITHOUT 02/22/2017 VENKAT CAMPOS DO Ot I80.8 PHLEBITIS AND THROMBOPHLEBITIS OF OTHER 02/22/2017 VENKAT CAMPOS DO Ot J45.909 UNSPECIFIED ASTHMA, UNCOMPLICATED 02/22/2017 VENKAT CAMPOS DO Ot K21.9 GASTRO-ESOPHAGEAL REFLUX DISEASE WITHOUT 02/22/2017 VENKAT CAMPOS DO Ot R07.89 OTHER CHEST PAIN 02/22/2017 VENKAT CAMPOS DO Ot Z86.010 PERSONAL HISTORY OF COLONIC POLYPS 02/22/2017 VENKAT CAMPOS DO Ot Z86.718 PERSONAL HISTORY OF OTHER VENOUS THROMBO 02/22/2017 VENKAT CAMPOS DO Ot Z87.19 PERSONAL HISTORY OF OTHER DISEASES OF TH 02/22/2017 VENKAT CAMPOS DO Ot Z87.891 PERSONAL HISTORY OF NICOTINE DEPENDENCE 03/17/2017 BURT SHAVER, JANIS Mcdonnell Ot I82.601 ACUTE EMBOLISM AND THOMBOS UNSP VEINS OF 10/11/2017 HERNAN MEYER MD Ot R07.89 OTHER CHEST PAIN 11/10/2017 HERNAN MEYER MD Ot R07.89 OTHER CHEST PAIN Procedures There is no data. Results Test Result Range Methicillin resistant Staphylococcus aureus (MRSA) screening culture - 08:05 Methicillin resistant Staphylococcus aureus (MRSA) screening culture NEG NRG Complete blood count (CBC) with automated white blood cell (WBC) differential - 02/17/17 20:55 Blood leukocytes automated count (number/volume) 8.9 10*3/uL 4.3-11.0 Blood erythrocytes automated count (number/volume) 4.38 10*6/uL 4.35-5.85 Venous blood hemoglobin measurement (mass/volume) 13.6 g/dL 13.3-17.7 Blood hematocrit (volume fraction) 39 % 40-54 Automated erythrocyte mean corpuscular volume 89 [foz_us] 80-99 Automated erythrocyte mean corpuscular hemoglobin (mass per erythrocyte) 31 pg 25-34 Automated erythrocyte mean corpuscular hemoglobin concentration measurement ( mass/volume) 35 g/dL 32-36 Automated erythrocyte distribution width ratio 12.0 % 10.0-14.5 Automated blood platelet count (count/volume) 282 10*3/uL 130-400 Automated blood platelet mean volume measurement 9.5 [foz_us] 7.4-10.4 Automated blood neutrophils/100 leukocytes 57 % 42-75 Automated blood lymphocytes/100 leukocytes 27 % 12-44 Blood monocytes/100 leukocytes 13 % 0-12 Automated blood eosinophils/100 leukocytes 3 % 0-10 Automated blood basophils/100 leukocytes 0 % 0-10 Blood neutrophils automated count (number/volume) 5.1 10*3 1.8-7.8 Blood lymphocytes automated count (number/volume) 2.4 10*3 1.0-4.0 Blood monocytes automated count (number/volume) 1.1 10*3 0.0-1.0 Automated eosinophil count 0.2 10*3/uL 0.0-0.3 Automated blood basophil count (count/volume) 0.0 10*3/uL 0.0-0.1 PT panel in platelet poor plasma by coagulation assay - 02/17/17 20:55 Prothrombin time (PT) in platelet poor plasma by coagulation assay 17.4 s 12.2-14.7 INR in platelet poor plasma or blood by coagulation assay 1.4 0.8-1.4 Activated partial thromboplastin time (aPTT) in platelet poor plasma bycoagulation assay - 02/17/17 20:55 Activated partial thromboplastin time (aPTT) in platelet poor plasma bycoagulation assay 37 s 24-35 Comprehensive metabolic panel - 02/17/17 20:55 Serum or plasma sodium measurement (moles/volume) 141 mmol/L 135-145 Serum or plasma potassium measurement (moles/volume) 3.6 mmol/L 3.6-5.0 Serum or plasma chloride measurement (moles/volume) 110 mmol/L 98-107 Carbon dioxide 22 mmol/L 21-32 Serum or plasma anion gap determination (moles/volume) 9 mmol/L 5-14 Serum or plasma urea nitrogen measurement (mass/volume) 22 mg/dL 7-18 Serum or plasma creatinine measurement (mass/volume) 1.07 mg/dL 0.60-1.30 Serum or plasma urea nitrogen/creatinine mass ratio 21 NRG Serum or plasma creatinine measurement with calculation of estimated glomerular filtration rate > NRG Serum or plasma glucose measurement (mass/volume) 102 mg/dL 70-105 Serum or plasma calcium measurement (mass/volume) 9.1 mg/dL 8.5-10.1 Serum or plasma total bilirubin measurement (mass/volume) 0.4 mg/dL 0.1-1.0 Serum or plasma alkaline phosphatase measurement (enzymatic activity/volume) 81 U/L 40-136 Serum or plasma aspartate aminotransferase measurement (enzymatic activity/ volume) 85 U/L 5-34 Serum or plasma alanine aminotransferase measurement (enzymatic activity/volume ) 168 U/L 0-55 Serum or plasma protein measurement (mass/volume) 6.2 g/dL 6.4-8.2 Serum or plasma albumin measurement (mass/volume) 3.8 g/dL 3.2-4.5 Serum or plasma creatine kinase measurement (enzymatic activity/volume) - 02/17 20:55 Serum or plasma creatine kinase measurement (enzymatic activity/volume) 58 U/L 30-200 Serum or plasma creatine kinase MB measurement (enzymatic activity/volume) - 20:55 Serum or plasma creatine kinase MB measurement (enzymatic activity/volume) 0.5 ng/mL <6.6 Serum or plasma amylase measurement (enzymatic activity/volume) - 02/17/17 20: 55 Serum or plasma amylase measurement (enzymatic activity/volume) 79 U /L 25-125 Serum or plasma troponin i.cardiac measurement (mass/volume) - 02/17/17 20:55 Serum or plasma troponin i.cardiac measurement (mass/volume) < ng/ mL <0.30 Lipase - 02/17/17 20:55 Lipase 49 U/L 8-78 Serum or plasma amylase measurement (enzymatic activity/volume) - 02/17/17 20: 55 Serum or plasma amylase measurement (enzymatic activity/volume) 79 U /L 25-125 Lipase - 02/17/17 20:55 Lipase 49 U/L 8-78 Serum or plasma ethanol measurement (mass/volume) - 02/17/17 20:55 Serum or plasma ethanol measurement (mass/volume) < mg/dL <10 Serum or plasma lithium measurement (moles/volume) - 02/17/17 20:55 BNP level < pg/mL <100.0 Acute hepatitis panel - 02/17/17 20:55 Confirmatory quantitative serum or plasma hepatitis B virus surface antigen measurement Non-Reactive Non-Reactive Hepatitis A virus IgM antibody assay Non-Reactive Non- Reactive Hepatitis B virus core IgM antibody assay Non-Reactive Non-Reactive Serum hepatitis C virus antibody detection Non-Reactive Non-Reactive Urine drug screening test - 02/17/17 21:23 Urine phencyclidine detection by screening method NEGATIVE NEGATIVE Urine benzodiazepines detection by screening method POSITIVE NEGATIVE Urine cocaine detection NEGATIVE NEGATIVE Urine amphetamines detection by screening method NEGATIVE NEGATIVE Urine methamphetamine detection by screening method NEGATIVE NEGATIVE Urine cannabinoids detection by screening method POSITIVE NEGATIVE Urine opiates detection by screening method NEGATIVE NEGATIVE Urine barbiturates detection NEGATIVE NEGATIVE Screening urine tricyclic antidepressants detection NEGATIVE NEGATIVE Urine methadone detection by screening method NEGATIVE NEGATIVE Urine oxycodone detection NEGATIVE NEGATIVE Urine propoxyphene detection NEGATIVE NEGATIVE Encounters ACCT No. Visit Date/Time Discharge Status Pt. Type Provider Facility Loc./Unit Complaint [id number] 10/08/2017 08:48:00 10/08/2017 23:59:59 CLS Outpatient HERNAN MEYER MD [facility] RAD CHEST WALL PAIN [id number] 02/17/2017 20:46:00 02/17/2017 23:33:00 DIS Emergency VENKAT CAMPOS DO [facility] ER RT ARM PAIN [id number] 02/04/2017 10:32:00 02/04/2017 23:59:59 CLS Outpatient JANIS DALLAS MD [facility] RAD PHLEBITIS [id number] 01/29/2017 07:53:00 01/29/2017 13:30:00 DIS Outpatient JANIS DALLAS MD [facility] SDC HEMORRHOIDS [id number] 01/26/2017 09:32:00 01/26/2017 23:59:59 CLS Outpatient JANIS DALLAS MD [facility] PREOP HEMORRHOIDS [id number] 01/08/2017 06:55:00 01/08/2017 09:30:00 DIS Outpatient JANIS DALLAS MD [facility] ENDO BLACK TARRY STOOLS/ GERD [id number] 01/07/2017 11:38:00 01/07/2017 23:59:59 CLS Outpatient JANIS DALLAS MD [facility] PREOP EGD [id number] 01/04/2017 12:43:00 01/04/2017 23:59:59 CLS Outpatient YOSELIN MACHUCA APRN [facility] RAD SEVERE ABD PAIN [id number] 11/05/2016 07:41:00 11/05/2016 12:00:00 DIS Outpatient JANIS DALLAS MD [facility] ENDO SCREENING [id number] 11/04/2016 05:32:00 11/04/2016 23:59:59 CLS Outpatient JANIS DALLAS MD [facility] PREOP SCREENING [id number] 11/01/2014 09:23:00 11/01/2014 13:35:00 DIS Outpatient EARL BEAL MD [facility] SDC SYNOVIAL CYST OF LEFT SHOULDER [id number] 10/26/2014 09:42:00 10/26/2014 23:59:59 CLS Outpatient EARL BEAL MD [facility] PREOP SYNOVIAL CYST TO LEFT SHOULDER
[2018-09-05] MEDS ORDERED: morphine INJ 10 MG/ML 1ML (SYR OR VIAL) IVP STA (23:12)
--- NOTE | 2018-09-05 23:19 | ED Chest Pain ---
General Chief Complaint: Chest Pain Stated Complaint: FLU SYMPTOMS,CHEST PAIN, SOB History of Present Illness Date Seen by Provider: Sep 05, 2018 Time Seen by Provider: 23:04 This is a 53-year-old male with a history of hyperlipidemia, anxiety, remote provoked DVT secondary to surgery no longer on anticoagulation, here for chest pain and shortness of breath that started this evening at rest. It is substernal and nonradiating. It is sharp in character. It is not migratory. No weakness numbness or tingling in the extremities. He did take 2 mg of oral Xanax one hour prior to arrival and feels it may be helping somewhat, he feels that his symptoms may be related to anxiety but is not sure. No history of stress test or cardiac catheterization. He has had flulike symptoms for the last 3 days and is taking tamiflu, nonproductive cough improved with robitussin. Subjective fever. Allergies and Home Medications Allergies Coded Allergies: Penicillins (Unverified Allergy, Unknown, 01/26/17) cephalexin (Unverified Allergy, Unknown, 01/26/17) Home Medications Albuterol 8.5 Gm Hfa.aer.ad, 1 PUFF IH RTQ4HR PRN for WHEEZING, (Reported) PRN WHEEZING Alprazolam 1 Mg Tablet, 1 MG PO BID, (Reported) Atorvastatin Calcium 10 Mg Tablet, 10 MG PO HS, (Reported) Cyclobenzaprine HCl 10 Mg Tablet, 10 MG PO Q8H Prescribed by: VENKAT CAMPOS on 02/17/172321 Escitalopram Oxalate 10 Mg Tablet, 10 MG PO DAILY, (Reported) Fluticasone/Salmeterol 1 Each Blst.w.dev, 1 EACH IH BID, (Reported) Hydrocodone/Acetaminophen 1 Each Tablet, 1 TAB PO Q4H PRN for PAIN-MILD TO MODERATE Prescribed by: JANIS DALLAS on 01/29/17 121 Levofloxacin 750 Mg Tablet, 750 MG PO DAILY Prescribed by: JUSTIN YUEN on 09/06/18 0058 Metronidazole 500 Mg Tablet, 500 MG PO TID Prescribed by: JANIS DALLAS on 01/29/17 121 Pantoprazole Sodium 40 Mg Tablet.dr, 40 MG PO DAILY, (Reported) Tramadol HCl 50 Mg Tablet, 50 MG PO Q4H Prescribed by: VENKAT CAMPOS on 02/17/17 232 Patient Home Medication List Home Medication List Reviewed: Yes Review of Systems Review of Systems Constitutional: no symptoms reported EENTM: No Symptoms Reported Respiratory: Cough, Shortness of Air Cardiovascular: Chest Pain Gastrointestinal: No Symptoms Reported Genitourinary: No Symptoms Reported Musculoskeletal: no symptoms reported Skin: no symptoms reported Psychiatric/Neurological: Anxiety Endocrine: No Symptoms Reported Hematologic/Lymphatic: No Symptoms Reported Past Cyduxlc-Vishla-Pwoxdo Hx Patient Social History Type Used: Cigarettes, Electronic/Vapor Former Smoker, Quit: Jan 26, 2013 2nd Hand Smoke Exposure: No Recent Foreign Travel: No Contact w/Someone Who Travel: No Recent Hopitalizations: Yes Immunizations Up To Date Tetanus Booster (TDap): Unknown Seasonal Allergies Seasonal Allergies: Yes Past Medical History Surgeries: Yes (SINUS SX, EYE SX FOR LAZY EYE, KNEE SCOPE, 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) Eye Surgery, Orthopedic, Rectal Respiratory: Yes Asthma Cardiac: Yes Deep Vein Thrombosis, High Cholesterol Neurological: Yes Headaches /Migraines Reproductive Disorders: No Sexually Transmitted Disease: No HIV/AIDS: No Genitourinary: No Gastrointestinal: Yes (HEMORRHOIDS) Gastroesophageal Reflux, Chronic Constipation, Polyps, Esophagitis, Hiatal Hernia Musculoskeletal: No Endocrine: No HEENT: No Loss of Vision: Bilateral Hearing Impairment: Denies Cancer: No Psychosocial: Yes Anxiety Integumentary: No Blood Disorders: No Adverse Reaction/Blood Tranf: No Physical Exam Vital Signs Vital Signs - First Documented 09/05/18 23:23 Temp 97.1 Pulse 62 Resp 23 B/P (MAP) 138/84 (102) Pulse Ox 97 O2 Delivery Room Air Capillary Refill : Height, Weight, BMI Height: 6'2.00" Weight: 215lbs. 0.0oz. 97.017336gz; 27.6 BMI Method:Stated General Appearance: Anxious (mildly anxious, keeping eyes closed) HEENT: PERRL/EOMI, Moist Mucous Membranes Neck: Supple Respiratory: Lungs Clear; No Pleural Rub, No Rales, No Respiratory Distress, No Rhonci, No Stridor, No Wheezing Cardiovascular: Regular Rate, Rhythm, Normal Peripheral Pulses Gastrointestinal: No Pulsatile Mass, Non Tender, Soft Extremity: No Calf Tenderness; No Swelling Neurologic/Psychiatric: Alert, Oriented x3, No Motor/Sensory Deficits Skin: Warm/Dry Progress/Results/Core Measures Results/Orders Lab Results Laboratory Tests Test 09/05/18 23:19 09/06/18 01:12 Range/Units White Blood Count 6.9 4.3-11.0 10^3/uL Red Blood Count 4.52 4.35-5.85 10^6/uL Hemoglobin 14.2 13.3-17.7 G/DL Hematocrit 41 40-54 % Mean Corpuscular Volume 91 80-99 FL Mean Corpuscular Hemoglobin 31 25-34 PG Mean Corpuscular Hemoglobin Concent 35 32-36 G/DL Red Cell Distribution Width 12.0 10.0-14.5 % Platelet Count 263 130-400 10^3/uL Mean Platelet Volume 9.6 7.4-10.4 FL Prothrombin Time 12.7 12.2-14.7 SEC INR Comment 1.0 0.8-1.4 Activated Partial Thromboplast Time 27 24-35 SEC D-Dimer 0.36 0.00-0.49 UG/ML Sodium Level 139 135-145 MMOL/L Potassium Level 4.5 3.6-5.0 MMOL/L Chloride Level 105 98-107 MMOL/L Carbon Dioxide Level 25 21-32 MMOL/L Anion Gap 9 5-14 MMOL/L Blood Urea Nitrogen 12 7-18 MG/DL Creatinine 0.95 0.60-1.30 MG/DL Estimat Glomerular Filtration Rate > 60 BUN/Creatinine Ratio 13 Glucose Level 104 70-105 MG/DL Calcium Level 8.5 8.5-10.1 MG/DL Corrected Calcium 8.5 8.5-10.1 MG/DL Magnesium Level 1.8 1.8-2.4 MG/DL Total Bilirubin 0.2 0.1-1.0 MG/DL Aspartate Amino Transf (AST/SGOT) 25 5-34 U/L Alanine Aminotransferase (ALT/SGPT) 24 0-55 U/L Alkaline Phosphatase 72 40-136 U/L Troponin T 6 6 <=15 NG/L Total Protein 6.3 L 6.4-8.2 GM/DL Albumin 4.0 3.2-4.5 GM/DL My Orders Orders - JUSTIN YUEN DO Magnesium (09/05/18 23:07) Chest 1 View Ap/Pa Only (09/05/18 23:07) Ekg Tracing (09/05/18 23:07) Comprehensive Metabolic Panel (09/05/18 23:07) Protime With Inr (09/05/18 23:07) Partial Thromboplastin Time (09/05/18 23:07) Monitor-Rhythm Ecg Trace Only (09/05/18 23:07) Saline Lock/Iv-Start (09/05/18 23:07) Cbc No Diff (09/05/18 23:07) Fibrin Degradation Products (09/05/18 23:12) Morphine Injection (Morphine Injection (09/05/18 23:12) Ns Iv 1000 Ml (Sodium Chloride 0.9%) (09/06/18 00:10) Nitroglycerin 0.4 Mg Btl 25's (Nitrostat (09/06/18 00:10) Fentanyl Injection (Sublimaze Injection (09/06/18 00:45) Levofloxacin 750 Mg/150 Ml Iv (Levaquin (09/06/18 00:45) Ketorolac Injection (Toradol Injection) (09/06/18 01:33) Medications Given in ED Current Medications Medications Dose Ordered Sig/Nubia Route Start Time Stop Time Status Last Admin Dose Admin Fentanyl Citrate 100 mcg ONCE PRN IVP 09/06/18 00:45 09/06/18 00:45 100 MCG Levofloxacin/ Dextrose 150 ml @ 100 mls/hr ONCE ONCE IV 09/06/18 00:45 09/06/18 02:14 09/06/18 00:45 100 MLS/HR Vital Signs/I&O 09/05/18 23:23 Temp 97.1 Pulse 62 Resp 23 B/P (MAP) 138/84 (102) Pulse Ox 97 O2 Delivery Room Air Progress Progress Note #1: Progress Note 53-year-old male with a history of hyperlipidemia, anxiety, upper extremity DVT after surgery no longer on anticoagulation, presenting with chest pain and shortness of breath beginning about 2 hours prior to arrival. There are septal Q waves and nonspecific anterior T-wave flattening on patient's ECG. Blood pressure, heart rate, oxygen saturation, all normal at this time. Physical exam is unremarkable except for mild anxiety which is nonspecific. Given history of DVT we will check a d-dimer. There is a sharp component to the pain however blood pressure is unremarkable, there are no pulse deficits or neurologic symptoms, there is no migratory pain, dissection is felt to be extremely unlikely at this time. We will treat with morphine. We will continue to monitor. Progress Note #2: Progress Note There was improvement in dyspnea with morphine but pain persists. There was no change after a dose of sublingual nitroglycerin. We are administering a fluid bolus for low normal blood pressure, we will dose with fentanyl for persistent pain as chest x-ray is potentially consistent with pneumonia. Within the last 2 months no treatment with antibiotics or hospitalizations. Progress Note #3: Progress Note Pt feels better and wants to go home. Treating for pneumonia with Levaquin. Prescription was provided. Patient will be discharged if repeat troponin remains negative although at this time suspicion for ACS is extremely low. I did recommend following up with primary care physician and also with cardiology within the week for consideration of stress test. Will obtain records from this visit including formal radiology read on cxr. EKG : Comment 2313: Normal sinus rhythm rate of 64. Normal axis. Nonspecific anterior T-wave flattening. Q waves in V1 and V2. Diagnostic Imaging Diagonstic Imaging: Xray Comments EP interpreation: Trachea is midline. No obvious rib fractures. Lateral head of the right clavicle has an abnormal appearance. Infiltrate versus effusion at the left lung base. No pneumothoraces, no widened mediastinum. Reviewed: Reviewed by Me Departure Impression Primary Impression: Chest pain Additional Impression: Pneumonia Disposition: 01 HOME, SELF-CARE Condition: Stable Departure-Patient Inst. Referrals: HERNAN MEYER MD (PCP/Family) Primary Care Physician Patient Instructions: Community-Acquired Pneumonia, Adult (DC) Scripts Levofloxacin (Levaquin) 750 Mg Tablet 750 MG PO DAILY for 4 Days, #4 TAB Prov: JUSTIN YUEN DO 09/06/18 JUSTIN YUEN DO Sep 05, 2018 23:19
[2018-09-05 23:35] LABS: HEMOGLOBIN 14.2 G/DL (13.3-17.7); MEAN PLATELET VOLUME 9.6 FL (7.4-10.4); WHITE BLOOD COUNT 6.9 10^3/uL (4.3-11.0)
[2018-09-05 23:52] LABS: ALANINE AMINOTRANSFERASE 24 U/L (0-55); ALKALINE PHOSPHATASE 72 U/L (40-136); BILIRUBIN,TOTAL 0.2 MG/DL (0.1-1.0); BUN/CREATININE RATIO 13; CALCIUM 8.5 MG/DL (8.5-10.1); CARBON DIOXIDE 25 MMOL/L (21-32); CHLORIDE 105 MMOL/L (98-107); CREATININE SERUM 0.95 MG/DL (0.60-1.30); GFR ESTIMATED > 60; GLUCOSE 104 MG/DL (70-105); MAGNESIUM 1.8 MG/DL (1.8-2.4); POTASSIUM 4.5 MMOL/L (3.6-5.0); SODIUM 139 MMOL/L (135-145); TOTAL PROTEIN 6.3 GM/DL (6.4-8.2)
[2018-09-06] MEDS ORDERED: NITROGLYCERIN 0.4 MG SL TABS BTL 25'S SL STA (00:10)
[2018-09-06] MEDS ORDERED: NS IV 1000 ML 1,000 ML IV STA (00:10)
[2018-09-06 00:43] LABS: PROTHROMBIN TIME PATIENT 12.7 SEC (12.2-14.7)
[2018-09-06] MEDS ORDERED: LEVOFLOXACIN 750 MG/150 ML IV 150 ML IV ONE (00:45)
[2018-09-06] MEDS ORDERED: fentaNYL INJECTION 100 MCG/2 ML AMP IVP PRN (00:45)
[2018-09-06] MEDS ORDERED: LEVO750T9 PO (00:58)
[2018-09-06] MEDS ORDERED: KETOROLAC 30 MG/ML VIAL IVP STA (01:33)
[2018-09-06 02:26] VITALS: BP 95/68
--- NOTE | 2018-09-06 08:06 | Diagnostic Imaging Report ---
Indication: Chest pain Frontal chest obtained at 1116 hrs pm, and is compared to 10/08/2017. Heart is borderline in size. There is poor inspiration. There is mild bibasilar atelectatic change. There is no focal consolidation, pneumothorax or pleural fluid. IMPRESSION: Poor inspiration with mild bibasilar atelectasis. No overt consolidation or pleural fluid. Dictated by: Dictated on workstation # [id number]
== END 2018-09-06 02:26 | disposition home or self-care (01) ==
LOC: EDUNIT# 23:03 → ER FS 23:06
DX: J18.9 Pneumonia, unspecified organism (principal); R07.81 Pleurodynia; J45.909 Unspecified asthma, uncomplicated; E78.00 Pure hypercholesterolemia, unspecified; E78.5 Hyperlipidemia, unspecified; K21.9 Gastro-esophageal reflux disease without esophagitis; F41.9 Anxiety disorder, unspecified; Z86.718 Personal history of other venous thrombosis and embolism; Z86.010 Personal history of colon polyps; Z87.19 Personal history of other diseases of the digestive system; Z88.0 Allergy status to penicillin; Z88.1 Allergy status to other antibiotic agents; Z79.51 Long term (current) use of inhaled steroids; Z87.891 Personal history of nicotine dependence; Z98.890 Other specified postprocedural states
CPT/HCPCS: 36415; 71045; 80053; 83735; 84484; 85027; 85379; 85610; 85730

== ENCOUNTER 2018-12-22 14:38 | Emergency (ER) | payer BC ==
[~2018-12-22] VITALS: Ht 188 cm; Wt 92.5 kg
[~2018-12-22 14:38] MED LIST changes: +LEVO750T9 PO
[2018-12-22] MEDS ORDERED: diphenhydrAMINE 50 MG/ML INJ (BENADRYL) IVP ONE (15:00)
[2018-12-22] MEDS ORDERED: METOCLOPRAMIDE INJ 10 MG/2 ML (REGLAN) IVP ONE (15:00)
[2018-12-22] MEDS ORDERED: NS IV 1000 ML 1,000 ML IV SCH (15:00)
[2018-12-22] MEDS ORDERED: PROCHLORPERAZINE 10 MG/2ML INJ (COMPAZINE) IV ONE (15:00)
[2018-12-22 15:16] LABS: HEMATOCRIT 43 % (40-54); HEMOGLOBIN 14.7 G/DL (13.3-17.7); MEAN CORPUSCULAR HEMOGLOBIN 32 PG (25-34); MEAN CORPUSCULAR HGB CONC 34 G/DL (32-36); MEAN CORPUSCULAR VOLUME 92 FL (80-99); MEAN PLATELET VOLUME 9.6 FL (7.4-10.4); PLATELET COUNT 285 10^3/uL (130-400); RED CELL DISTRIBUTION WIDTH 12.1 % (10.0-14.5)
[2018-12-22 15:17] LABS: BASOPHILS % (AUTO) 0 % (0-10); EOSINOPHILS # (AUTO) 0.1 10^3/uL (0.0-0.3); EOSINOPHILS % (AUTO) 1 % (0-10); LYMPHOCYTES # (AUTO) 2.1 X 10^3 (1.0-4.0); LYMPHOCYTES % (AUTO) 35 % (12-44); MONOCYTES # (AUTO) 0.5 X 10^3 (0.0-1.0); MONOCYTES % (AUTO) 9 % (0-12); NEUTROPHILS # (AUTO) 3.3 X 10^3 (1.8-7.8); NEUTROPHILS % (AUTO) 55 % (42-75)
[2018-12-22 15:21] LABS: BILIRUBIN,URINE NEGATIVE (NEGATIVE); CLARITY,URINE CLEAR; COLOR,URINE YELLOW; GLUCOSE, URINE (UA) NEGATIVE (NEGATIVE); KETONES,URINE TRACE (NEGATIVE); NITRITE,URINE NEGATIVE (NEGATIVE); PROTEIN,URINE NEGATIVE (NEGATIVE); UROBILINOGEN,URINE 0.2 MG/DL (NORMAL)
[2018-12-22 15:22] LABS: LEUKOCYTE ESTERASE ,URINE NEGATIVE (NEGATIVE)
--- NOTE | 2018-12-22 15:43 | Diagnostic Imaging Report ---
INDICATION: Headache status post trauma to the head TECHNIQUE: Routine non contrast-enhanced axial images were obtained from the skull base to the vertex. Auto Exposure Controls were utilized during the CT exam to meet ALARA standards for radiation dose reduction COMPARISON: None. FINDINGS: The ventricles and cortical sulci are normal in size and contour. There is no midline shift or mass-effect. No acute intra-axial hemorrhage is seen. There are no abnormal areas of increased or decreased density to suggest acute hemorrhage or edema. No extra-axial masses or collections are present. The bony calvarium is intact. The visualized paranasal sinuses are unremarkable. The mastoid air cells are clear. IMPRESSION: 1. No acute intracranial abnormality. No CT evidence of mass, acute infarct or intracranial hemorrhage. Dictated by: Dictated on workstation # [id number]
[2018-12-22 15:46] LABS: EOSINOPHILS % (MANUAL) 1 %; LYMPHOCYTES % (MANUAL) 30 %; MONOCYTES % (MANUAL) 10 %; NEUTROPHILS % (MANUAL) 59 %; POTASSIUM 4.4 MMOL/L (3.6-5.0); RBC MORPH NORMAL
[2018-12-22 15:47] LABS: ALBUMIN 4.2 GM/DL (3.2-4.5); BILIRUBIN,TOTAL 0.5 MG/DL (0.1-1.0); CALCIUM 9.1 MG/DL (8.5-10.1); CREATININE SERUM 1.36 MG/DL (0.60-1.30); TOTAL PROTEIN 6.5 GM/DL (6.4-8.2)
--- NOTE | 2018-12-22 16:47 | ED Headache ---
General Chief Complaint: Head/Cervical Problems Stated Complaint: HEADACHE Nursing Triage Note: Had a headache that started on Wednesday, currently rated at 9/10. Has taken rizotriptan and ibuprofen with little relief. Has some blurry vision,photosensitivity, nausea, and vomiting. Patient thinks he hit the back of his head sometine before his headache started but is unable to state what he hit it on or when he hit it. states patient is normally forgetful and has not noticed a change in mentation. Nursing Sepsis Screen: No Definite Risk Source: patient, family History of Present Illness Date Seen by Provider: Dec 22, 2018 Time Seen by Provider: 13:45 Initial Comments Patient is a 51 drilled male presents with gradual onset headache starting 4 days prior to ED arrival. Patient headache was initially located maxillary sinuses and now has migrated to his forehead behind his eyes. Headache is describing this throbbing is rated moderate to severe. Patient's taken Imitrex and ibuprofen with limited relief. Reports nausea, blurred vision photosensitivity and vomiting. Patient also reports lower neck pain. Denies fever, neck stiffness and rash. This is not the worst headache of the patient's life. Denies injury or fall. No change of mental status or increased confusion. Patient's spouse states patient is normally forgetful which is his baseline. Patient is not a diabetic. No other acute symptoms or complaints. History obtained from the patient and the patient's spouse. Timing/Duration: 1 week, increasing Severity/Quality: moderate, severe Location: frontal Prior Headaches/Recent Trauma: no recent headache/trauma, occasional headaches Modifying Factors: improves with medication, improves with rest Associated Symptoms: facial pain, nausea/vomiting Allergies and Home Medications Allergies Coded Allergies: Penicillins (Unverified Allergy, Unknown, 01/26/17) cephalexin (Unverified Allergy, Unknown, 01/26/17) Home Medications Albuterol 8.5 Gm Hfa.aer.ad, 1 PUFF IH RTQ4HR PRN for WHEEZING, (Reported) PRN WHEEZING Alprazolam 1 Mg Tablet, 1 MG PO BID, (Reported) Atorvastatin Calcium 10 Mg Tablet, 10 MG PO HS, (Reported) Cyclobenzaprine HCl 10 Mg Tablet, 10 MG PO Q8H Prescribed by: VENKAT CAMPOS on 02/17/17 3263 Escitalopram Oxalate 10 Mg Tablet, 10 MG PO DAILY, (Reported) Fluticasone/Salmeterol 1 Each Blst.w.dev, 1 EACH IH BID, (Reported) Hydrocodone/Acetaminophen 1 Each Tablet, 1 TAB PO Q4H PRN for PAIN-MILD TO MODERATE Prescribed by: JANIS DALLAS on 01/29/17 1215 Levofloxacin 750 Mg Tablet, 750 MG PO DAILY Prescribed by: JUSTIN YUEN on 09/06/18 0058 Metronidazole 500 Mg Tablet, 500 MG PO TID Prescribed by: JANIS DALLAS on 01/29/17 1216 Pantoprazole Sodium 40 Mg Tablet.dr, 40 MG PO DAILY, (Reported) Tramadol HCl 50 Mg Tablet, 50 MG PO Q4H Prescribed by: VENKAT CAMPOS on 02/17/17 4092 Patient Home Medication List Home Medication List Reviewed: Yes Review of Systems Review of Systems Constitutional: see HPI Eyes: See HPI Ears, Nose, Mouth, Throat: see HPI Respiratory: see HPI Cardiovascular: see HPI Gastrointestinal: see HPI Genitourinary: see HPI Musculoskeletal: see HPI Skin: see HPI Psychiatric/Neurological: See HPI Past [place]-Nmluiq-Vdwlxe Hx Past Med/Social Hx: Reviewed Nursing Past Med/Soc Hx Patient Social History Alcohol Use: Denies Use Recreational Drug Use: No Type Used: Cigarettes Former Smoker, Quit: Jan 26, 2013 2nd Hand Smoke Exposure: No Recent Foreign Travel: No Contact w/Someone Who Travel: No Recent Infectious Disease Expo: No Recent Hopitalizations: Yes Physical Abuse: No Sexual Abuse: No Mistreated: No Fear: No Immunizations Up To Date Tetanus Booster (TDap): Unknown Seasonal Allergies Seasonal Allergies: Yes Past Medical History Surgeries: Yes (SINUS SX, EYE SX FOR LAZY EYE, KNEE SCOPE, 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) Rectal Respiratory: Yes Asthma, COPD Cardiac: No Deep Vein Thrombosis, High Cholesterol Neurological: No Headaches /Migraines Reproductive Disorders: No Sexually Transmitted Disease: No HIV/AIDS: No Genitourinary: No Gastrointestinal: No Gastroesophageal Reflux, Chronic Constipation, Polyps, Esophagitis, Hiatal Hernia Musculoskeletal: No Endocrine: No HEENT: No Loss of Vision: Bilateral Hearing Impairment: Denies Cancer: No Psychosocial: Yes Anxiety, Depression Integumentary: No Blood Disorders: No Adverse Reaction/Blood Tranf: No Physical Exam Vital Signs Vital Signs - First Documented 12/22/18 14:40 Temp 99.0 Pulse 54 Resp 18 B/P (MAP) 114/73 (87) Pulse Ox 98 Capillary Refill : Less Than 3 Seconds Height, Weight, BMI Height: 6'2.00" Weight: 204lbs. 0.0oz. 92.649223ha; 27.6 BMI Method:Stated General Appearance: WD/WN, no apparent distress, other (moderate discomfort secondary to pain) HEENT: normal ENT inspection, pharynx normal Neck: non-tender, full range of motion, supple Cardiovascular: normal peripheral pulses, regular rate, rhythm, no edema Respiratory: chest non-tender, lungs clear Gastrointestinal: non tender, soft Psychiatric: alert, oriented x 3 Crainal Nerves: normal hearing, normal speech, PERRL; No abnormal eye position, No abnormal pupil position, No abnormal speech, No facial asymmetry, No facial droop, No facial paresthesias, No facial weakness, No gaze palsy, No hearing deficit (R), No hearing deficit (L), No tongue deviation to R, No tongue deviation to L Coordination/Gait: normal gait Skin: normal color, warm/dry; No rash Progress/Results/Core Measures Results/Orders Lab Results Laboratory Tests Test 12/22/18 15:00 12/22/18 15:05 Range/Units Urine Color YELLOW Urine Clarity CLEAR Urine pH 6.0 5-9 Urine Specific [place] 1.020 1.016-1.022 Urine Protein NEGATIVE NEGATIVE Urine Glucose (UA) NEGATIVE NEGATIVE Urine Ketones TRACE H NEGATIVE Urine Nitrite NEGATIVE NEGATIVE Urine Bilirubin NEGATIVE NEGATIVE Urine Urobilinogen 0.2 NORMAL MG/DL Urine Leukocyte Esterase NEGATIVE NEGATIVE Urine RBC (Auto) NEGATIVE NEGATIVE White Blood Count 6.0 4.3-11.0 10^3/uL Red Blood Count 4.65 4.35-5.85 10^6/uL Hemoglobin 14.7 13.3-17.7 G/DL Hematocrit 43 40-54 % Mean Corpuscular Volume 92 80-99 FL Mean Corpuscular Hemoglobin 32 25-34 PG Mean Corpuscular Hemoglobin Concent 34 32-36 G/DL Red Cell Distribution Width 12.1 10.0-14.5 % Platelet Count 285 130-400 10^3/uL Mean Platelet Volume 9.6 7.4-10.4 FL Neutrophils (%) (Auto) 55 42-75 % Lymphocytes (%) (Auto) 35 12-44 % Monocytes (%) (Auto) 9 0-12 % Eosinophils (%) (Auto) 1 0-10 % Basophils (%) (Auto) 0 0-10 % Neutrophils # (Auto) 3.3 1.8-7.8 X 10^3 Lymphocytes # (Auto) 2.1 1.0-4.0 X 10^3 Monocytes # (Auto) 0.5 0.0-1.0 X 10^3 Eosinophils # (Auto) 0.1 0.0-0.3 10^3/uL Basophils # (Auto) 0.0 0.0-0.1 10^3/uL Neutrophils % (Manual) 59 % Lymphocytes % (Manual) 30 % Monocytes % (Manual) 10 % Eosinophils % (Manual) 1 % Blood Morphology Comment NORMAL Sodium Level 142 135-145 MMOL/L Potassium Level 4.4 3.6-5.0 MMOL/L Chloride Level 105 98-107 MMOL/L Carbon Dioxide Level 27 21-32 MMOL/L Anion Gap 10 5-14 MMOL/L Blood Urea Nitrogen 15 7-18 MG/DL Creatinine 1.36 H 0.60-1.30 MG/DL Estimat Glomerular Filtration Rate 55 BUN/Creatinine Ratio 11 Glucose Level 94 70-105 MG/DL Calcium Level 9.1 8.5-10.1 MG/DL Corrected Calcium 8.9 8.5-10.1 MG/DL Total Bilirubin 0.5 0.1-1.0 MG/DL Aspartate Amino Transf (AST/SGOT) 18 5-34 U/L Alanine Aminotransferase (ALT/SGPT) 18 0-55 U/L Alkaline Phosphatase 83 40-136 U/L Total Protein 6.5 6.4-8.2 GM/DL Albumin 4.2 3.2-4.5 GM/DL My Orders Orders - KRIS HARKINS DO Prochlorperazine Injection (Compazine In (12/22/18 15:00) Metoclopramide Injection (Reglan Injecti (12/22/18 15:00) Diphenhydramine Injection (Benadryl Inje (12/22/18 15:00) Ct Head Wo (12/22/18 14:51) Cbc And Manual Diff (12/22/18 14:51) Comprehensive Metabolic Panel (12/22/18 14:51) Urinalysis Dipstick Only (12/22/18 14:51) Ns Iv 1000 Ml (Sodium Chloride 0.9%) (12/22/18 15:00) Thyroid Stimulating Hormone (12/22/18 15:05) Medications Given in ED Current Medications Medications Dose Ordered Sig/Nubia Route Start Time Stop Time Status Last Admin Dose Admin Diphenhydramine HCl 25 mg ONCE ONCE IVP 12/22/18 15:00 12/22/18 15:01 DC 12/22/18 15:04 25 MG Metoclopramide HCl 10 mg ONCE ONCE IVP 12/22/18 15:00 12/22/18 15:01 DC 12/22/18 15:04 10 MG Prochlorperazine Edisylate 10 mg ONCE ONCE IV 12/22/18 15:00 12/22/18 15:01 DC 12/22/18 15:04 10 MG Vital Signs/I&O 12/22/18 14:40 Temp 99.0 Pulse 54 Resp 18 B/P (MAP) 114/73 (87) Pulse Ox 98 Blood Pressure Mean: 87 Departure Communication (Admissions) CT head: No acute findings per radiology report. No focal neurologic deficits on exam. Vital signs, lab and imaging studies really shirring. Headache resolved with treatment in the emergency department. Recommend watchful waiting, supportive care and PCP follow-up. Return cautions reviewed. Patient and spouse verbalize understanding. Discharge instruction prior to departure. Impression Primary Impression: Headache Additional Impression: Nausea Disposition: HOME, SELF-CARE Condition: Improved Departure-Patient Inst. Referrals: HERNAN MEYER MD (PCP/Family) Primary Care Physician Patient Instructions: Headache, Adult (DC) Add. Discharge Instructions: You were evaluated in the emergency department for headache. CT and lab work was obtained and are nondiagnostic. The cause of your headache has not been determined. Please take Tylenol for pain and tramadol and Compazine as needed for additional relief. Follow-up with your PCP early next week for reevaluation. Return to the ED if new or worsening symptoms. All discharge instructions reviewed with patient and/or family. Voiced understanding. Scripts Tramadol HCl (Tramadol HCl) 50 Mg Tablet 50 MG PO q6, #10 TAB Prov: KRIS HARKINS DO 12/22/18 Prochlorperazine Maleate (Compazine) 10 Mg Tablet 10 MG PO Q8H, #10 TAB Prov: KRIS HARKINS DO 12/22/18 KRIS HARKINS DO Dec 22, 2018 16:47
[2018-12-22] MEDS ORDERED: PROC-1 PO (16:49)
[2018-12-22] MEDS ORDERED: TRAM50TA2 PO (16:49)
[2018-12-22 17:14] VITALS: BP 106/69
--- OUTSIDE RECORDS SUMMARY | 2018-12-22 18:33 | XMS REPORT | Continuity of Care Document ---
Author Organization Unknown Address Unknown Allergies Active Description Code Type Severity Reaction Onset Reported/Identified Relationship to Patient Clinical Status Yes cephalexin [id number] Drug Allergy Unknown N/A 01/26/2017 Yes Penicillins [id number] Drug Allergy Unknown N/A 01/26/2017 Medications There [...] DALLAS MD Ot K64.9 UNSPECIFIED HEMORRHOIDS 11/10/2016 JNAIS DALLAS MD Ot Z12.11 ENCOUNTER FOR SCREENING FOR MALIGNANT NE 01/04/2017 EMIGDIO SHAVER, EARL Ot 727.40 SYNOVIAL CYST NOS 01/04/2017 EMIGDIO SHAVER, EARL Ot V72.84 EXAM PRE-OPERATIVE NOS 01/04/2017 JANIS DALLAS MD Ot Z01.818 ENCOUNTER FOR OTHER PREPROCEDURAL EXAMIN 01/04/2017 JANIS DALLAS MD Ot Z12.11 ENCOUNTER FOR SCREENING FOR MALIGNANT NE 01/06/2017 YOSELIN MACHUCA VP CLINICAL RESEARCH Ot K92.1 MELENA 01/06/2017 YOSELIN MACHUCA VP CLINICAL RESEARCH Ot R10.84 GENERALIZED ABDOMINAL PAIN 01/07/2017 EMIGDIO SHAVER, EARL Ot 727.40 SYNOVIAL CYST NOS 01/07/2017 EARL BEAL MD Ot V72.84 EXAM PRE-OPERATIVE NOS 01/07/2017 BURT SHAVER, JANIS Mcdonnell Ot Z01.818 ENCOUNTER FOR OTHER PREPROCEDURAL EXAMIN 01/07/2017 JANIS DALLAS MD Ot Z12.11 ENCOUNTER FOR SCREENING FOR MALIGNANT NE 01/07/2017 YOSELIN MACHUCA L VP CLINICAL RESEARCH Ot K92.1 MELENA 01/07/2017 YOSELIN MACHUCA VP CLINICAL RESEARCH Ot R10.84 GENERALIZED ABDOMINAL PAIN 01/08/2017 BURT SHAVER, JANIS Mcdonnell Ot F41.9 ANXIETY DISORDER, UNSPECIFIED 01/08/2017 BURT SHAVER, JANIS Mcdonnell Ot J44.9 CHRONIC OBSTRUCTIVE PULMONARY DISEASE, U 01/08/2017 BURT SHAVER, JANIS Mcdonnell Ot K20.9 ESOPHAGITIS, UNSPECIFIED 01/08/2017 BURT SHAVER, JANIS Mcdonnell Ot K29.70 GASTRITIS, UNSPECIFIED, WITHOUT BLEEDING 01/08/2017 JANIS DALLAS MD Ot K44.9 DIAPHRAGMATIC HERNIA WITHOUT OBSTRUCTION 01/08/2017 BURT SHAVER, JANIS Mcdonnell Ot K59.00 CONSTIPATION, UNSPECIFIED 01/08/2017 JANIS DALLAS MD Ot K92.1 MELENA 01/26/2017 JANIS DALLAS MD Ot K64.9 UNSPECIFIED HEMORRHOIDS 01/26/2017 BURT SHAVER, JANIS Mcdonnell Ot Z01.818 ENCOUNTER FOR OTHER PREPROCEDURAL EXAMIN 01/27/2017 BURT SHAVER, JANIS Mcdonnell Ot K64.9 UNSPECIFIED HEMORRHOIDS 01/27/2017 BURT SHAVER, JANIS Mcdonnell Ot Z01.818 ENCOUNTER FOR OTHER PREPROCEDURAL EXAMIN 01/29/2017 JANIS DALLAS MD Ot E78.5 HYPERLIPIDEMIA, UNSPECIFIED 01/29/2017 BURT SHAVER, JANIS Mcdonnell Ot F41.9 ANXIETY DISORDER, UNSPECIFIED 01/29/2017 BURT SHAVER, JANIS Mcdonnell Ot J45.909 UNSPECIFIED ASTHMA, UNCOMPLICATED 01/29/2017 BURT SHAVER, JANIS Mcdonnell Ot K64.2 THIRD DEGREE HEMORRHOIDS 01/29/2017 BURT SHAVER, JANIS Mcdonnell Ot Z79.899 OTHER HALF-WAY (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 THERAPY 01/29/2017 BURT SHAVER, JANIS Mcdonnell Ot Z87.891 PERSONAL HISTORY OF NICOTINE DEPENDENCE 02/04/2017 EMIGDIO SHAVER, EARL Ot 727.40 SYNOVIAL CYST NOS 02/04/2017 EMIGDIO SHAVER, EARL Ot V72.84 EXAM PRE-OPERATIVE NOS 02/04/2017 BURT SHAVER, JANIS Mcdonnell Ot Z01.818 ENCOUNTER FOR OTHER PREPROCEDURAL EXAMIN 02/04/2017 JANIS DALLAS MD Ot Z12.11 ENCOUNTER FOR SCREENING FOR MALIGNANT NE 02/04/2017 YOSELIN MACHUCA VP CLINICAL RESEARCH Ot K92.1 MELENA 02/04/2017 YOSELIN MACHUCA VP CLINICAL RESEARCH Ot R10.84 GENERALIZED ABDOMINAL PAIN 02/04/2017 JANIS DALLAS MD Ot K21.9 GASTRO-ESOPHAGEAL REFLUX DISEASE WITHOUT 02/04/2017 JANIS DALLAS MD Ot R19.5 OTHER FECAL ABNORMALITIES 02/04/2017 JANIS DALLAS MD Ot Z01.818 ENCOUNTER FOR OTHER PREPROCEDURAL EXAMIN 02/10/2017 YOSELIN MACHUCA VP CLINICAL RESEARCH Ot K92.1 MELENA 02/10/2017 YOSELIN MACHUCA VP CLINICAL RESEARCH Ot R10.84 GENERALIZED ABDOMINAL PAIN 02/12/2017 JANIS DALLAS MD Ot E78.5 HYPERLIPIDEMIA, UNSPECIFIED 02/12/2017 JANIS DALLAS MD Ot F41.9 ANXIETY DISORDER, UNSPECIFIED 02/12/2017 BURT SHAVER, JANIS Mcdonnell Ot J45.909 UNSPECIFIED ASTHMA, UNCOMPLICATED 02/12/2017 BURT SHAVER, JANIS Mcdonnell Ot K64.2 THIRD DEGREE HEMORRHOIDS 02/12/2017 BURT SHAVER, JANIS Mcdonnell Ot Z79.899 OTHER HALF-WAY (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 THERAPY 02/12/2017 BURT SHAVER, JANIS [...] Ot R07.89 OTHER CHEST PAIN 02/17/2017 BETH DO, VENKAT K Ot Z86.010 PERSONAL HISTORY OF COLONIC POLYPS 02/17/2017 BETH DO, VENKAT K Ot Z86.718 PERSONAL HISTORY OF OTHER VENOUS THROMBO 02/17/2017 BETH DO VENKAT K Ot Z87.19 PERSONAL HISTORY OF OTHER DISEASES OF TH 02/17/2017 BETH DO VENKAT K Ot Z87.891 PERSONAL HISTORY OF NICOTINE DEPENDENCE 02/19/2017 BETH DO, VENKAT K Ot R07.89 OTHER CHEST PAIN 02/22/2017 BETH DO, VENKAT K Ot E78.00 PURE HYPERCHOLESTEROLEMIA, UNSPECIFIED 02/22/2017 BETH DO, VENKAT K Ot F41.0 PANIC DISORDER WITHOUT AGORAPHOBIA 02/22/2017 BETH DO, VENKAT K Ot F41.9 ANXIETY DISORDER, UNSPECIFIED 02/22/2017 BETH DO, VENKAT K Ot G43.909 MIGRAINE, UNSP, NOT INTRACTABLE, WITHOUT 02/22/2017 BETH DO, VENKAT K Ot I80.8 PHLEBITIS AND THROMBOPHLEBITIS OF OTHER 02/22/2017 BETH WATSON VENKAT Hector Ot J45.909 UNSPECIFIED ASTHMA, UNCOMPLICATED 02/22/2017 BETH WATSON VENKAT Hector Ot K21.9 GASTRO-ESOPHAGEAL REFLUX DISEASE WITHOUT 02/22/2017 BETH WATSON VENKAT Young Ot R07.89 OTHER CHEST PAIN 02/22/2017 BETH WATSON VENKAT Hector Ot Z86.010 PERSONAL HISTORY OF COLONIC POLYPS 02/22/2017 BETH WATSON VENKAT Hector Ot Z86.718 PERSONAL HISTORY OF OTHER VENOUS THROMBO 02/22/2017 BETH WATSON VENKAT Hector Ot Z87.19 PERSONAL HISTORY OF OTHER DISEASES OF TH 02/22/2017 BETH WATSONVENKAT Ot Z87.891 PERSONAL HISTORY OF NICOTINE DEPENDENCE 03/17/2017 BURT SHAVER, JANIS Mcdonnell Ot I82.601 ACUTE EMBOLISM AND THOMBOS UNSP VEINS OF 10/11/2017 BETSY SHAVER, HERNAN Mcfarlane Ot R07.89 OTHER CHEST PAIN 11/10/2017 HERNAN MEYER MD Ot R07.89 OTHER CHEST PAIN 09/06/2018 ALPA WATSON JUSTIN T Ot E78.00 PURE HYPERCHOLESTEROLEMIA, UNSPECIFIED 09/06/2018 TANYA YUEN DOED T Ot E78.5 HYPERLIPIDEMIA, UNSPECIFIED 09/06/2018 TANYA YUEN DOED T Ot F41.9 ANXIETY DISORDER, UNSPECIFIED 09/06/2018 TANYA YUEN DOED T Ot J18.9 PNEUMONIA, UNSPECIFIED ORGANISM 09/06/2018 JUSTIN YUEN DO T Ot J45.909 UNSPECIFIED ASTHMA, UNCOMPLICATED 09/06/2018 TANYA YUEN DOED T Ot K21.9 GASTRO-ESOPHAGEAL REFLUX DISEASE WITHOUT 09/06/2018 TANYA YUEN DOED T Ot R07.81 PLEURODYNIA 09/06/2018 TANYA YUEN DOED T Ot Z79.51 TOP STEEP TENDER (CURRENT) USE OF INHALED STERO 09/06/2018 TANYA YUEN DOED T Ot Z86.010 PERSONAL HISTORY OF COLONIC POLYPS 09/06/2018 JUSTIN YUEN DO T Ot Z86.718 PERSONAL HISTORY OF OTHER VENOUS THROMBO 09/06/2018 JUSTIN YUEN DO T Ot Z87.19 PERSONAL HISTORY OF OTHER DISEASES OF 09/06/2018 JUSTIN YUEN DO T Ot Z87.891 PERSONAL HISTORY OF NICOTINE DEPENDENCE 09/06/2018 JUSTIN YUEN DO Ot Z88.0 ALLERGY STATUS TO PENICILLIN 09/06/2018 JUSTIN YUEN DO Ot Z88.1 ALLERGY STATUS TO OTHER ANTIBIOTIC AGENT 09/06/2018 JUSTIN YUEN DO Ot Z98.890 OTHER SPECIFIED POSTPROCEDURAL STATES Procedures There is no data. Results Test Result Range Methicillin resistant Staphylococcus aureus (MRSA) screening culture - 01/29/17 08:05 Methicillin resistant Staphylococcus aureus (MRSA) screening [...] Automated erythrocyte mean corpuscular hemoglobin concentration measurement (mass/volume) 35 g/dL 32-36 Automated erythrocyte distribution width ratio 12.0 % 10.0- 14.5 Automated blood platelet count (count/volume) 282 10*3/uL [...] Blood monocytes automated count (number/volume) 1.1 10*3 0.0- 1.0 Automated eosinophil count 0.2 10*3/uL 0.0-0.3 Automated [...] Serum or plasma aspartate aminotransferase measurement (enzymatic activity/volume) 85 U/L 5-34 Serum or plasma alanine aminotransferase measurement (enzymatic activity/volume) 168 U/L 0-55 Serum or plasma protein measurement (mass/volume) 6.2 g/dL 6.4-8.2 Serum or plasma albumin measurement (mass/volume) 3.8 g/dL 3.2-4.5 Serum or plasma creatine kinase measurement (enzymatic activity/volume) - 02/17/17 20:55 Serum or plasma creatine kinase measurement (enzymatic activity/volume) 58 U/L 30-200 Serum or plasma creatine kinase MB measurement (enzymatic activity/volume) - 02/17/17 20:55 Serum or plasma creatine kinase MB measurement (enzymatic activity/volume) 0.5 ng/mL <6.6 Serum or plasma amylase measurement (enzymatic activity/volume) - 02/17/17 20:55 Serum or plasma amylase measurement (enzymatic activity/volume) 79 U/L 25-125 Serum or plasma troponin i.cardiac measurement (mass/volume) - 02/17/17 20:55 Serum or plasma troponin i.cardiac measurement (mass/volume) < ng/mL <0.30 Lipase - 02/17/17 20:55 Lipase 49 U/L 8-78 Serum or plasma amylase measurement (enzymatic activity/volume) - 02/17/17 20:55 Serum or plasma amylase measurement (enzymatic activity/volume) 79 U/L 25-125 Lipase - 02/17/17 20:55 Lipase 49 [...] Hepatitis A virus IgM antibody assay Non-Reactive Non-Reactive Hepatitis B virus core IgM antibody assay Non-Reactive Non- Reactive Serum hepatitis C virus antibody detection Non-Reactive Non- Reactive Urine drug screening test - 02/17/17 21:23 [...] NEGATIVE NEGATIVE Urine propoxyphene detection NEGATIVE NEGATIVE Automated blood complete blood count (hemogram) panel - 09/05/18 23:19 Blood leukocytes automated count (number/volume) 6.9 10*3/uL 4.3-11.0 Blood erythrocytes automated count (number/volume) 4.52 10*6/uL 4.35-5.85 Venous blood hemoglobin measurement (mass/volume) 14.2 g/dL 13.3-17.7 Blood hematocrit (volume fraction) 41 % 40-54 Automated erythrocyte mean corpuscular volume 91 [foz_us] 80-99 Automated erythrocyte mean corpuscular hemoglobin (mass per erythrocyte) 31 pg 25-34 Automated erythrocyte mean corpuscular hemoglobin concentration measurement (mass/volume) 35 g/dL 32-36 Automated erythrocyte distribution width ratio 12.0 % 10.0- 14.5 Automated blood platelet count (count/volume) 263 10*3/uL 130-400 Automated blood platelet mean volume measurement 9.6 [foz_us] 7.4-10.4 Comprehensive metabolic panel - 09/05/18 23:19 Serum or plasma sodium measurement (moles/volume) 139 mmol/L 135-145 Serum or plasma potassium measurement (moles/volume) 4.5 mmol/L 3.6-5.0 Serum or plasma chloride measurement (moles/volume) 105 mmol/L 98-107 Carbon dioxide 25 mmol/L 21-32 Serum or plasma anion gap determination (moles/volume) 9 mmol/L 5-14 Serum or plasma urea nitrogen measurement (mass/volume) 12 mg/dL 7-18 Serum or plasma creatinine measurement (mass/volume) 0.95 mg/dL 0.60-1.30 Serum or plasma urea nitrogen/creatinine mass ratio 13 NRG Serum or plasma creatinine measurement with calculation of estimated glomerular filtration rate > NRG Serum or plasma glucose measurement (mass/volume) 104 mg/dL 70-105 Serum or plasma calcium measurement (mass/volume) 8.5 mg/dL 8.5-10.1 Serum or plasma total bilirubin measurement (mass/volume) 0.2 mg/dL 0.1-1.0 Serum or plasma alkaline phosphatase measurement (enzymatic activity/volume) 72 U/L 40-136 Serum or plasma aspartate aminotransferase measurement (enzymatic activity/volume) 25 U/L 5-34 Serum or plasma alanine aminotransferase measurement (enzymatic activity/volume) 24 U/L 0-55 Serum or plasma protein measurement (mass/volume) 6.3 g/dL 6.4-8.2 Serum or plasma albumin measurement (mass/volume) 4.0 g/dL 3.2-4.5 CALCIUM CORRECTED 8.5 mg/dL 8.5-10.1 Magnesium - 09/05/18 23:19 Magnesium 1.8 mg/dL 1.8-2.4 TROPONIN T - 09/05/18 23:19 TROPONIN T 6 % <=15 PT panel in platelet poor plasma by coagulation assay - 09/05/18 23:19 Prothrombin time (PT) in platelet poor plasma by coagulation assay 12.7 s 12.2-14.7 INR in platelet poor plasma or blood by coagulation assay 1.0 0.8-1.4 Activated partial thromboplastin time (aPTT) in platelet poor plasma bycoagulation assay - 09/05/18 23:19 Activated partial thromboplastin time (aPTT) in platelet poor plasma bycoagulation assay 27 s 24-35 Fibrin D-dimer FEU measurement in platelet poor plasma (mass/volume) - 09/05/18 23:19 Fibrin D-dimer FEU measurement in platelet poor plasma (mass/volume) 0.36 ug/mL 0.00-0.49 TROPONIN T - 09/06/18 01:12 TROPONIN T 6 % <=15 Encounters ACCT No. Visit Date/Time Discharge Status Pt. Type Provider Facility Loc./Unit Complaint [id number] 09/05/2018 23:06:00 09/06/2018 02:26:00 DIS Emergency JUSTIN YUEN DO [facility] ER FS FLU SYMPTOMS,CHEST PAIN, SOB [id number] 10/08/2017 08:48:00 10/08/2017 23:59:59 CLS Outpatient HERNAN MEYER MD [facility] RAD CHEST WALL PAIN [id number] 02/17/2017 20:46:00 02/17/2017 23:33:00 DIS Emergency VENKAT CAMPOS DO [facility] ER RT ARM PAIN [id number] 02/04/2017 10:32:00 02/04/2017 23:59:59 CLS Outpatient JANIS DALLAS MD [facility] RAD PHLEBITIS [id number] 01/29/2017 07:53:00 01/29/2017 13:30:00 DIS Outpatient JANIS DALLAS MD [facility] SDC HEMORRHOIDS [id number] 01/26/2017 09:32:00 01/26/2017 23:59:59 CLS Outpatient JANIS DALLAS MD [facility] PREOP HEMORRHOIDS [id number] 01/08/2017 06:55:00 01/08/2017 09:30:00 DIS Outpatient JANIS DALLAS MD [facility] ENDO BLACK TARRY STOOLS/GERD [id number] 01/07/2017 11:38:00 01/07/2017 23:59:59 CLS Outpatient JANIS DALLAS MD [facility] PREOP EGD [id number] 01/04/2017 12:43:00 01/04/2017 23:59:59 CLS Outpatient YOSELIN MACHUCA APRN [facility] RAD SEVERE ABD PAIN [id number] 11/05/2016 07:41:00 11/05/2016 12:00:00 DIS Outpatient JANIS DALLAS MD [facility] ENDO SCREENING [id number] 11/04/2016 05:32:00 11/04/2016 23:59:59 CLS Outpatient JANIS DALLAS MD [facility] PREOP SCREENING [id number] 11/01/2014 09:23:00 11/01/2014 13:35:00 DIS Outpatient EARL BEAL MD [facility] SDC SYNOVIAL CYST OF LEFT SHOULDER [id number] 10/26/2014 09:42:00 10/26/2014 23:59:59 CLS Outpatient EARL BEAL MD [facility] PREOP SYNOVIAL CYST TO LEFT SHOULDER
== END 2018-12-22 17:13 | disposition home or self-care (01) ==
LOC: EDUNIT# 14:38 → ER FS 14:39
DX: R51 Headache (principal); R11.2 Nausea with vomiting, unspecified; J44.9 Chronic obstructive pulmonary disease, unspecified; E78.00 Pure hypercholesterolemia, unspecified; K21.9 Gastro-esophageal reflux disease without esophagitis; F41.9 Anxiety disorder, unspecified; F32.9 Major depressive disorder, single episode, unspecified; Z87.19 Personal history of other diseases of the digestive system; Z86.69 Personal history of other diseases of the nervous system and sense organs; Z86.718 Personal history of other venous thrombosis and embolism; Z88.0 Allergy status to penicillin; Z88.1 Allergy status to other antibiotic agents; Z87.891 Personal history of nicotine dependence
CPT/HCPCS: 36415; 70450; 80053; 81002; 84443; 85007; 85027

== ENCOUNTER → 2019-05-31 | Outpatient (CLI) | payer BC ==
[~2019-05-31] MED LIST changes: +CATHETER FLUSH 10 ML SYR IV PRN; +HOLD METFORMIN - RECEIVED CONTRAST 20 ML VIAL IV SCH; +IOHEXOL 350 MG/ML 100 ML (OMNIPAQUE 350) VIAL IV ONE; +NS 100 ML (IVPB) BAG IV ONE; +PROC-1 PO; +TRAM50TA2 PO
[2019-05-31 11:09] LABS: BUN/CREATININE RATIO 14; CREATININE SERUM 1.08 MG/DL (0.60-1.30); GFR ESTIMATED > 60
--- NOTE | 2019-05-31 12:28 | Diagnostic Imaging Report ---
PROCEDURE: CT abdomen and pelvis with and without contrast. TECHNIQUE: Precontrast acquisitions were acquired through the abdomen and pelvis. Multiple contiguous axial images were obtained through the abdomen and pelvis after the administration of intravenous contrast. Auto Exposure Controls were utilized during the CT exam to meet ALARA standards for radiation dose reduction. INDICATION: Left testicular pain. COMPARISON: 01/04/2017. FINDINGS: Included portions of the lung bases are clear. CT ABDOMEN: Moderate amount of air and stool is noted scattered throughout the colon. Small bowel loops are nondistended. Normal appendix is identified. 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 Otherwise, the kidneys, adrenal glands, spleen, pancreas, and liver have a normal CT appearance. There is no loculated fluid collection, free fluid, nor free air within the abdomen. No abnormal mesenteric or retroperitoneal adenopathy is seen. Osseous structures show no acute abnormalities. CT PELVIS: Urinary bladder is grossly unremarkable. There is no loculated fluid collection, free fluid, nor free air within the pelvis. No abnormal adenopathy is seen. Osseous structures show no acute abnormalities. IMPRESSION: 1. No acute abnormalities are seen within the abdomen or pelvis. 2. Moderate colonic air and stool. Please correlate with underlying constipation. 3. 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 Dictated by: Dictated on workstation # [id number]
== END ==
LOC: RAD FS 09:44
PROVIDERS: ATTEND Urology
DX: R10.9 Unspecified abdominal pain (principal); N50.812 Left testicular pain
CPT/HCPCS: 36415; 74178; 82565; 84520

== ENCOUNTER 2019-06-05 17:16 | Observation (INO) | payer BC ==
[~2019-06-05] VITALS: Ht 187.5 cm; Wt 95.5 kg
[~2019-06-05 17:16] MED LIST changes: -CATHETER FLUSH 10 ML SYR IV PRN; -HOLD METFORMIN - RECEIVED CONTRAST 20 ML VIAL IV SCH; -IOHEXOL 350 MG/ML 100 ML (OMNIPAQUE 350) VIAL IV ONE; -NS 100 ML (IVPB) BAG IV ONE
[2019-06-05] MEDS ORDERED: NS 100 ML (IVPB) BAG IV ONE (17:45)
[2019-06-05] MEDS ORDERED: CATHETER FLUSH 10 ML SYR IV PRN (17:45)
[2019-06-05] MEDS ORDERED: HOLD METFORMIN - RECEIVED CONTRAST 20 ML VIAL IV SCH (17:45)
[2019-06-05] MEDS ORDERED: fentaNYL INJECTION 100 MCG/2 ML AMP IVP ONE ×4 (17:45→20:00)
[2019-06-05] MEDS ORDERED: IOHEXOL 350 MG/ML 100 ML (OMNIPAQUE 350) VIAL IV ONE (17:45)
[2019-06-05] MEDS ORDERED: NS IV 1000 ML 1,000 ML IV SCH (17:45)
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
[2019-06-05 17:58] LABS: HEMATOCRIT 42 % (40-54); MEAN CORPUSCULAR HEMOGLOBIN 31 PG (25-34); MEAN CORPUSCULAR HGB CONC 33 G/DL (32-36); MEAN CORPUSCULAR VOLUME 93 FL (80-99); MEAN PLATELET VOLUME 9.2 FL (7.4-10.4); PLATELET COUNT 283 10^3/uL (130-400); RED CELL DISTRIBUTION WIDTH 12.2 % (10.0-14.5); WHITE BLOOD COUNT 7.5 10^3/uL (4.3-11.0)
[2019-06-05 17:59] LABS: BASOPHILS % (AUTO) 0 % (0-10); EOSINOPHILS # (AUTO) 0.1 10^3/uL (0.0-0.3); EOSINOPHILS % (AUTO) 2 % (0-10); LYMPHOCYTES # (AUTO) 2.2 X 10^3 (1.0-4.0); LYMPHOCYTES % (AUTO) 30 % (12-44); MONOCYTES # (AUTO) 0.7 X 10^3 (0.0-1.0); MONOCYTES % (AUTO) 10 % (0-12); NEUTROPHILS # (AUTO) 4.3 X 10^3 (1.8-7.8); NEUTROPHILS % (AUTO) 58 % (42-75)
[2019-06-05 18:19] LABS: POTASSIUM 4.4 MMOL/L (3.6-5.0); SODIUM 140 MMOL/L (135-145)
[2019-06-05 18:20] LABS: ALANINE AMINOTRANSFERASE 36 U/L (0-55); ALBUMIN 4.3 GM/DL (3.2-4.5); ALKALINE PHOSPHATASE 71 U/L (40-136); BILIRUBIN,TOTAL 0.2 MG/DL (0.1-1.0); BUN/CREATININE RATIO 16; CALCIUM 9.2 MG/DL (8.5-10.1); CARBON DIOXIDE 25 MMOL/L (21-32); CHLORIDE 103 MMOL/L (98-107); CREATININE SERUM 0.97 MG/DL (0.60-1.30); GFR ESTIMATED > 60; GLUCOSE 121 MG/DL (70-105); TOTAL PROTEIN 6.7 GM/DL (6.4-8.2)
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
--- NOTE | 2019-06-05 20:00 | NUR ---
called for a room and was informed the patient would not be able to be admitted until 2300. will notify ems when the room is available.
--- NOTE | 2019-06-05 20:01 | NUR ---
pt. requesting more pain medication
--- NOTE | 2019-06-05 20:39 | NUR ---
pt. requesting more pain medication. doctor notified and he will receive morphine as ordered.
[2019-06-05] MEDS ORDERED: morphine INJ 10 MG/ML 1ML (SYR OR VIAL) IVP STA (20:41)
[2019-06-05] MEDS ORDERED: KETOROLAC 30 MG/ML VIAL IVP ONE (21:45)
[2019-06-05] MEDS ORDERED: LACTATED RINGERS 1,000 ML IV SCH (22:00)
[2019-06-05] MEDS: LORazepam INJ 2 MG/ML (ATIVAN) VIAL IVP PRN (22:01)
--- NOTE | 2019-06-05 22:06 | NUR ---
PT. REPORTED THAT THE TORADOL WORKED THE BEST. HE DID C/O ANXIETY SO HE WAS GIVEN ATIVAN FOR THIS.
[2019-06-05 22:34] LABS: BACTERIA,URINE NEGATIVE /HPF; BILIRUBIN,URINE NEGATIVE (NEGATIVE); CLARITY,URINE CLEAR; COLOR,URINE YELLOW; GLUCOSE, URINE (UA) NEGATIVE (NEGATIVE); KETONES,URINE NEGATIVE (NEGATIVE); LEUKOCYTE ESTERASE ,URINE NEGATIVE (NEGATIVE); NITRITE,URINE NEGATIVE (NEGATIVE); PROTEIN,URINE NEGATIVE (NEGATIVE); SQUAMOUS EPITHELIAL CELL,UR RARE /HPF
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
--- NOTE | 2019-06-06 00:20 | NUR ---
Dr Odonnell notified of patient arrival and orders received.
--- NOTE | 2019-06-06 00:30 | NUR ---
Dr Troy notified of pt arrival and consult
[2019-06-06 01:00] VITALS: BP 109/75
[2019-06-06] MEDS ORDERED: LACTATED RINGERS 1,000 ML IV SCH (01:00)
[2019-06-06] MEDS: fentaNYL INJECTION 100 MCG/2 ML AMP IV PRN ×3 (01:06→08:36)
[2019-06-06 04:15] VITALS: BP 106/68
[2019-06-06] MEDS: KETOROLAC 30 MG/ML VIAL IVP PRN ×2 (04:26→10:55)
[2019-06-06 06:24] LABS: BASOPHILS % (AUTO) 0 % (0-10); EOSINOPHILS # (AUTO) 0.2 10^3/uL (0.0-0.3); EOSINOPHILS % (AUTO) 2 % (0-10); HEMATOCRIT 39 % (40-54); LYMPHOCYTES # (AUTO) 2.2 X 10^3 (1.0-4.0); LYMPHOCYTES % (AUTO) 24 % (12-44); MEAN CORPUSCULAR HEMOGLOBIN 31 PG (25-34); MEAN CORPUSCULAR HGB CONC 33 G/DL (32-36); MEAN CORPUSCULAR VOLUME 93 FL (80-99); MEAN PLATELET VOLUME 9.5 FL (7.4-10.4); MONOCYTES # (AUTO) 1.1 X 10^3 (0.0-1.0); MONOCYTES % (AUTO) 12 % (0-12); NEUTROPHILS # (AUTO) 5.8 X 10^3 (1.8-7.8); NEUTROPHILS % (AUTO) 63 % (42-75); PLATELET COUNT 265 10^3/uL (130-400); RED CELL DISTRIBUTION WIDTH 12.5 % (10.0-14.5); WHITE BLOOD COUNT 9.3 10^3/uL (4.3-11.0)
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
[2019-06-06 08:00] VITALS: BP 106/74
[2019-06-06] MEDS ORDERED: FLUT1DIS26 INH (08:37)
[2019-06-06] MEDS ORDERED: MONT10TA24 PO (08:37)
[2019-06-06] MEDS ORDERED: ALPR2TAB6 PO (08:37)
[2019-06-06] MEDS ORDERED: ALBU18HF2 INH (08:37)
[2019-06-06] MEDS ORDERED: PANT40TA3 PO (08:37)
[2019-06-06] MEDS ORDERED: ESCI20TA45 PO (08:37)
[2019-06-06 08:45] LABS: BILIRUBIN,URINE NEGATIVE (NEGATIVE); CLARITY,URINE CLEAR; COLOR,URINE YELLOW; GLUCOSE, URINE (UA) NEGATIVE (NEGATIVE); KETONES,URINE NEGATIVE (NEGATIVE); LEUKOCYTE ESTERASE ,URINE NEGATIVE (NEGATIVE); NITRITE,URINE NEGATIVE (NEGATIVE); PROTEIN,URINE NEGATIVE (NEGATIVE)
[2019-06-06] MEDS ORDERED: PSEU30TA35 PO (08:48)
[2019-06-06] MEDS ORDERED: HC A30CR5 RC (08:48)
[2019-06-06] MEDS ORDERED: CYCL10TA9 PO (08:48)
[2019-06-06 08:52] LABS: BACTERIA,URINE TRACE /HPF; WBC,URINE RARE /HPF
[2019-06-06] MEDS ORDERED: PSYL3.4P8 PO (08:57)
--- NOTE | 2019-06-06 09:02 | NUR ---
WENT OVER THE EXT MED HX WITH THE PATIENT AND HE LISTED HIS OTC MEDS.
[2019-06-06] MEDS ORDERED: CYCLOBENZAPRINE 10 MG (FLEXERIL) TAB PO PRN (10:00)
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
[2019-06-06] MEDS: LORazepam INJ 2 MG/ML (ATIVAN) VIAL IVP PRN (10:56)
[2019-06-06 12:00] VITALS: BP 110/67
[2019-06-06 16:10] VITALS: BP 110/67
[2019-06-06] MEDS ORDERED: RT-ADVAIR HFA 115/21 MCG PER PUFF IH SCH (20:00)
[2019-06-06] MEDS ORDERED: MONTELUKAST 10 MG (SINGULAIR) TAB PO SCH (21:00)
[2019-06-06] MEDS ORDERED: NON-FORMULARY MEDICATION 1 EA EA (Fluticasone/Salmeterol (Advair 250-50 Diskus) 1 PUFF) INH SCH (21:00)
[2019-06-07] MEDS ORDERED: NON-FORMULARY MEDICATION 1 EA EA (Escitalopram Oxalate 20 MG) PO SCH (09:00)
[2019-06-07] MEDS ORDERED: PANTOPRAZOLE 40 MG (PROTONIX) TAB PO SCH (09:00)
== END 2019-06-06 15:47 | disposition home or self-care (01) ==
LOC: EDUNIT# 17:16 → ER FS 17:17 → 4TH 22:23
PROVIDERS: ADMIT Internal Medicine; ATTEND Internal Medicine
DX: S20.219A Contusion of unspecified front wall of thorax, initial encounter (principal); S16.1XXA Strain of muscle, fascia and tendon at neck level, initial encounter; S39.012A Strain of muscle, fascia and tendon of lower back, initial encounter; G43.909 Migraine, unspecified, not intractable, without status migrainosus; S23.3XXA Sprain of ligaments of thoracic spine, initial encounter; J30.9 Allergic rhinitis, unspecified; E78.00 Pure hypercholesterolemia, unspecified; Z86.718 Personal history of other venous thrombosis and embolism; J44.9 Chronic obstructive pulmonary disease, unspecified; K21.9 Gastro-esophageal reflux disease without esophagitis; K59.09 Other constipation; F32.9 Major depressive disorder, single episode, unspecified; F41.9 Anxiety disorder, unspecified; Z88.1 Allergy status to other antibiotic agents; Z88.0 Allergy status to penicillin; Z88.2 Allergy status to sulfonamides; Z79.899 Other long term (current) drug therapy; V86.99XA Unspecified occupant of other special all-terrain or other off-road motor vehicle injured in nontraffic accident, initial encounter; Z87.891 Personal history of nicotine dependence
CPT/HCPCS: 36415; 70450; 71046; 71260; 72125; 74177; 80053; 81000; 85025; 96361; 96374; 96375; 96376; G0378

== ENCOUNTER → 2019-06-12 | Outpatient (CLI) | payer BC ==
[~2019-06-12] MED LIST changes: +ALBU18HF2 INH; +ALPR2TAB6 PO; +ESCI20TA45 PO; +FLUT1DIS26 INH; +HC A30CR5 RC; +MONT10TA24 PO; +PANT40TA3 PO; +PSEU30TA35 PO; +PSYL3.4P8 PO; -TRAM50TA2 PO; +TRM50T PO
== END ==
LOC: CARD 10:55
PROVIDERS: ATTEND Specialist
DX: Z01.810 Encounter for preprocedural cardiovascular examination (principal); K62.5 Hemorrhage of anus and rectum
CPT/HCPCS: 93005

== ENCOUNTER 2020-02-08 14:48 | Emergency (ER) | payer SELFPAY ==
[~2020-02-08] VITALS: Ht 187.9 cm; Wt 95.4 kg
[~2020-02-08 14:48] MED LIST changes: +ACHYD1T PO; -HYDR-3820 PO; -MONT10TA24 PO; +MONT10TA26 PO; -PSYL3.4P8 PO; +[UNRECOGNIZED DRUG - CODE] PO
[2020-02-08] MEDS ORDERED: LORazepam INJ 2 MG/ML (ATIVAN) VIAL ONE (14:51)
[2020-02-08] MEDS ORDERED: fentaNYL INJECTION 100 MCG/2 ML AMP ONE (14:51)
[2020-02-08] MEDS ORDERED: ONDANSETRON 4 MG/2 ML (SDV) Z0FRAN IVP ONE (15:00)
[2020-02-08] MEDS ORDERED: LORazepam INJ 2 MG/ML (ATIVAN) VIAL IVP ONE (15:00)
[2020-02-08] MEDS ORDERED: fentaNYL INJECTION 100 MCG/2 ML AMP IVP ONE (15:00)
[2020-02-08 15:03] LABS: BASOPHILS % (AUTO) 0 % (0-10); EOSINOPHILS # (AUTO) 0.1 10^3/uL (0.0-0.3); EOSINOPHILS % (AUTO) 1 % (0-10); HEMATOCRIT 46 % (40-54); HEMOGLOBIN 15.9 G/DL (13.3-17.7); LYMPHOCYTES # (AUTO) 2.3 X 10^3 (1.0-4.0); LYMPHOCYTES % (AUTO) 24 % (12-44); MEAN CORPUSCULAR HEMOGLOBIN 31 PG (25-34); MEAN CORPUSCULAR HGB CONC 35 G/DL (32-36); MEAN CORPUSCULAR VOLUME 87 FL (80-99); MEAN PLATELET VOLUME 9.9 FL (7.4-10.4); MONOCYTES # (AUTO) 0.9 X 10^3 (0.0-1.0); MONOCYTES % (AUTO) 10 % (0-12); NEUTROPHILS # (AUTO) 6.3 X 10^3 (1.8-7.8); NEUTROPHILS % (AUTO) 65 % (42-75); PLATELET COUNT 306 10^3/uL (130-400); RED CELL DISTRIBUTION WIDTH 11.9 % (10.0-14.5); WHITE BLOOD COUNT 9.6 10^3/uL (4.3-11.0)
[2020-02-08 15:29] LABS: ALANINE AMINOTRANSFERASE 17 U/L (0-55); ALKALINE PHOSPHATASE 114 U/L (40-136); BILIRUBIN,TOTAL 0.5 MG/DL (0.1-1.0); BUN/CREATININE RATIO 8; CALCIUM 9.7 MG/DL (8.5-10.1); CARBON DIOXIDE 21 MMOL/L (21-32); CHLORIDE 106 MMOL/L (98-107); CREATININE SERUM 1.26 MG/DL (0.60-1.30); GFR ESTIMATED 60; GLUCOSE 89 MG/DL (70-105); POTASSIUM 4.1 MMOL/L (3.6-5.0); SODIUM 141 MMOL/L (135-145); TOTAL PROTEIN 7.3 GM/DL (6.4-8.2)
--- NOTE | 2020-02-08 15:29 | NUR ---
EKG took longer than normal to obtain due to the patients persistent movement and anxiety accompanied by intermittent groaning.
[2020-02-08 15:30] LABS: ALBUMIN 4.7 GM/DL (3.2-4.5)
[2020-02-08] MEDS ORDERED: HALOPERIDOL 5 MG/ML (HALDOL) VIAL IM ONE ×2 (15:30→16:45)
--- NOTE | 2020-02-08 15:43 | Diagnostic Imaging Report ---
INDICATION: Chest pain. TIME OF EXAM: 03:24 p.m. COMPARISON: Correlation is made with prior chest from 06/06/2019. The heart size is normal. The pulmonary vascularity is unremarkable. The lungs are clear. No infiltrate, effusion or pneumothorax is detected. IMPRESSION: No acute cardiopulmonary process is detected. Dictated by: Dictated on workstation # [id number]
[2020-02-08] MEDS ORDERED: KETOROLAC 30 MG/ML VIAL IVP ONE (16:45)
--- NOTE | 2020-02-08 17:57 | ED Chest Pain ---
General Chief Complaint: Chest Pain Stated Complaint: CHEST PAIN Nursing Triage Note: Patient presents to the ED with c/o of chest pain. He reports that his chest began hurting yesterday evening while he was sitting in the chair. The pain subsided and then began again this morning. He describes the pain as a burning feeling when he takes a deep breath. He also reports a fever yesterday and diarrhea. Nursing Sepsis Screen: Possible Severe Sepsis Risk Source: patient History of Present Illness Date Seen by Provider: Feb 08, 2020 Time Seen by Provider: 17:52 Initial Comments Patient is a 53-year-old male with history of severe anxiety and dyslipidemia who presents with multiple medical complaints. Patient reports low-grade fever, GI discomfort upset with diarrhea for 3 days, chest pain described as pleuritic worse with deep breathing. No nausea vomiting or sweats. Denies headache, dizziness, loss of taste or smell. Patient does report high anxiety and has tingling around his lips and cramping with accompanying carpopedal spasm. He states his chest pain started approximately 30 minutes prior to arrival while sitting prompting his visit to the emergency department. Patient denies history of CAD. Denies known COVID exposures. Patient last took 1.5 mg of Xanax 30 minutes prior to ED arrival. No other acute symptoms or complaints. Timing/Duration: 3-4 days Severity/Quality: severe, sharp Location: substernal, central Radiation: no radiation Prior CP/Workup: no prior chest pain ASA po RECONDITIONER: No NTG SL RECONDITIONER: No Associated Symptoms: fatigue, fever/chills, nausea/vomiting, shortness of breath, weakness Allergies and Home Medications Allergies Coded Allergies: Penicillins (Unverified Allergy, Unknown, 01/26/17) cephalexin (Unverified Allergy, Unknown, 01/26/17) ciprofloxacin (Verified Allergy, Unknown, 06/05/19) sulfamethoxazole (Verified Allergy, Unknown, 06/05/19) trimethoprim (Verified Allergy, Unknown, 06/05/19) Home Medications Albuterol Sulfate 18 Gm Hfa.aer.ad, 2 PUFF INH Q4H PRN for SHORTNESS OF BREATH, (Reported) Alprazolam 2 Mg Tablet, 1-2 MG PO Q8H PRN for ANXIETY, (Reported) TAKES 1/2 TO 1 (2MG) TABLETS Atorvastatin Calcium 10 Mg Tablet, 10 MG PO DAILY, (Reported) Cyclobenzaprine HCl 10 Mg Tablet, 10 MG PO TID PRN for SPASMS, (Reported) Escitalopram Oxalate 20 Mg Tablet, 20 MG PO DAILY, (Reported) Fluticasone/Salmeterol 1 Each Blst.w.dev, 1 PUFF INH BID, (Reported) Hydrocortisone/Pramoxine 30 Gm Cream.appl, RC BID PRN for HEMMORRHOID DISCOMFORT, (Reported) Montelukast Sodium 10 Mg Tablet, 10 MG PO HS, (Reported) Pantoprazole Sodium 40 Mg Tablet.dr, 40 MG PO DAILY, (Reported) Pseudoephedrine HCl 30 Mg Tablet, 30 MG PO Q6H PRN for CONGESTION, (Reported) Psyllium Husk (with Sugar) 3.4 Gm Powd.pack, 3.4 GM PO DAILY, (Reported) Patient Home Medication List Home Medication List Reviewed: Yes Review of Systems Review of Systems Constitutional: see HPI EENTM: See HPI Respiratory: See HPI Cardiovascular: See HPI Gastrointestinal: See HPI Genitourinary: See HPI Musculoskeletal: see HPI Skin: see HPI Psychiatric/Neurological: See HPI, Anxiety Endocrine: See HPI Hematologic/Lymphatic: See HPI All Other Systems Reviewed Negative Unless Noted: Yes Past Mwvbazo-Wkxjmb-Fnwgmt Hx Past Med/Social Hx: Reviewed Nursing Past Med/Soc Hx Patient Social History Alcohol Use: Denies Use Number of Drinks Today: AA Alcohol Beverage of Choice: Beer Recreational Drug Use: No Smoking Status: Former Smoker Type Used: Cigarettes Former Smoker, Quit: Jan 26, 2013 2nd Hand Smoke Exposure: No Recent Foreign Travel: No Contact w/Someone Who Travel: No Recent Infectious Disease Expo: No Recent Hopitalizations: Yes Physical Abuse: No Sexual Abuse: No Mistreated: No Fear: No Immunizations Up To Date Tetanus Booster (TDap): Unknown Date of Pneumonia Vaccine: May 05, 2018 Seasonal Allergies Seasonal Allergies: Yes Past Medical History Surgeries: Yes (SINUS SX, EYE SX FOR LAZY EYE, KNEE SCOPE, 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) Rectal Respiratory: Yes Asthma, COPD Cardiac: Yes Deep Vein Thrombosis, High Cholesterol, Hypotension Neurological: Yes Headaches /Migraines Reproductive Disorders: No Sexually Transmitted Disease: No HIV/AIDS: No Genitourinary: No Gastrointestinal: Yes Gastroesophageal Reflux, Chronic Constipation, Polyps, Esophagitis Musculoskeletal: No Endocrine: No HEENT: No Loss of Vision: Bilateral Hearing Impairment: Denies Cancer: Yes Prostate Psychosocial: Yes Anxiety, Depression Integumentary: No Blood Disorders: No Adverse Reaction/Blood Tranf: No Family Medical History Heart Disease, Cancer, Diabetes Physical Exam Vital Signs Vital Signs - First Documented 02/08/20 14:49 Temp 36.1 Pulse 73 Resp 22 B/P (MAP) 135/96 (109) Pulse Ox 97 O2 Delivery Room Air Capillary Refill : Less Than 3 Seconds Height, Weight, BMI Height: 6'2.00" Weight: 204lbs. 0.0oz. 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 II-XII Norm as Tested Focused Exam Sepsis Stage: Ruled Out Progress/Results/Core Measures Results/Orders Lab Results Laboratory Tests Test 02/08/20 14:54 02/08/20 15:24 02/08/20 16:45 Range/Units White Blood Count 9.6 4.3-11.0 10^3/uL Red Blood Count 5.21 4.35-5.85 10^6/uL Hemoglobin 15.9 13.3-17.7 G/DL Hematocrit 46 40-54 % Mean Corpuscular Volume 87 80-99 FL Mean Corpuscular Hemoglobin 31 25-34 PG Mean Corpuscular Hemoglobin Concent 35 32-36 G/DL Red Cell Distribution Width 11.9 10.0-14.5 % Platelet Count 306 130-400 10^3/uL Mean Platelet Volume 9.9 7.4-10.4 FL Neutrophils (%) (Auto) 65 42-75 % Lymphocytes (%) (Auto) 24 12-44 % Monocytes (%) (Auto) 10 0-12 % Eosinophils (%) (Auto) 1 0-10 % Basophils (%) (Auto) 0 0-10 % Neutrophils # (Auto) 6.3 1.8-7.8 X 10^3 Lymphocytes # (Auto) 2.3 1.0-4.0 X 10^3 Monocytes # (Auto) 0.9 0.0-1.0 X 10^3 Eosinophils # (Auto) 0.1 0.0-0.3 10^3/uL Basophils # (Auto) 0.0 0.0-0.1 10^3/uL D-Dimer 0.30 0.00-0.49 UG/ML Sodium Level 141 135-145 MMOL/L Potassium Level 4.1 3.6-5.0 MMOL/L Chloride Level 106 98-107 MMOL/L Carbon Dioxide Level 21 21-32 MMOL/L Anion Gap 14 5-14 MMOL/L Blood Urea Nitrogen 10 7-18 MG/DL Creatinine 1.26 0.60-1.30 MG/DL Estimat Glomerular Filtration Rate 60 BUN/Creatinine Ratio 8 Glucose Level 89 70-105 MG/DL Calcium Level 9.7 8.5-10.1 MG/DL Corrected Calcium 8.5-10.1 MG/DL Total Bilirubin 0.5 0.1-1.0 MG/DL Aspartate Amino Transf (AST/SGOT) 21 5-34 U/L Alanine Aminotransferase (ALT/SGPT) 17 0-55 U/L Alkaline Phosphatase 114 40-136 U/L Troponin I < 0.30 < 0.30 <0.30 NG/ML Total Protein 7.3 6.4-8.2 GM/DL Albumin 4.7 H 3.2-4.5 GM/DL My Orders Orders - KRIS HARKINS DO Cbc With Automated Diff (02/08/20 14:50) Comprehensive Metabolic Panel (02/08/20 14:50) Troponin I Fs (02/08/20 14:50) Chest 1 View Ap/Pa Only (02/08/20 14:50) Ekg Tracing (02/08/20 14:50) Fibrin Degradation Products (02/08/20 14:50) Lorazepam Injection (Ativan Injection) (02/08/20 15:00) Fentanyl Injection (Sublimaze Injection (02/08/20 15:00) Ondansetron Injection (Zofran Injectio (02/08/20 15:00) Fentanyl Injection (Sublimaze Injection (02/08/20 14:51) Lorazepam Injection (Ativan Injection) (02/08/20 14:51) Coronavirus Sars-Cov-2 So 2018 (02/08/20 15:18) Haloperidol Injection (Haldol Injectio (02/08/20 15:30) Ketorolac Injection (Toradol Injection) (02/08/20 16:45) Haloperidol Injection (Haldol Injectio (02/08/20 16:45) Troponin I Fs (02/08/20 16:34) Medications Given in ED Current Medications Medications Dose Ordered Sig/Nbuia Route Start Time Stop Time Status Last Admin Dose Admin Fentanyl Citrate 100 mcg ONCE ONCE IVP 02/08/20 15:00 02/08/20 15:01 DC 02/08/20 15:17 100 MCG Haloperidol Lactate 2.5 mg ONCE ONCE IM 02/08/20 16:45 02/08/20 16:46 DC 02/08/20 16:45 2.5 MG Ketorolac Tromethamine 30 mg ONCE ONCE IVP 02/08/20 16:45 02/08/20 16:46 DC 02/08/20 16:44 30 MG Lorazepam 1 mg ONCE ONCE IVP 02/08/20 15:00 02/08/20 15:01 DC 02/08/20 15:17 1 MG Vital Signs/I&O 02/08/20 14:49 Temp 36.1 Pulse 73 Resp 22 B/P (MAP) 135/96 (109) Pulse Ox 97 O2 Delivery Room Air Blood Pressure Mean: 109 Departure Communication (Admissions) EKG: Reviewed Chest x-ray: No acute disease. Patient requiring repeat doses of Haldol, along with fentanyl and Ativan for relief of symptoms. Lab work including repeat troponin are negative. Patient resting comfortably. Abdomen soft nontender. Etiology of patient's symptoms is unclear and coated testing is pending. Given the severity of reproducible nonexertional chest pain do not feel as though his current symptoms are primarily cardiac related. Recommend supportive care, watchful waiting, home quarantine with PCP follow-up. Return cautions reviewed. All questions answered to the patient's satisfaction prior to his departure. Impression Primary Impression: Chest wall pain Additional Impressions: Anxiety state Diarrhea Disposition: HOME, SELF-CARE Condition: Stable Departure-Patient Inst. Referrals: HERNAN MEYER MD (PCP/Family) Primary Care Physician Patient Instructions: Anxiety, Adult (DC), Chest Pain, Diarrhea in Adolescents and Adults Add. Discharge Instructions: You were evaluated in the emergency department for chest pain and various other medical complaints. EKG lab and imaging were performed and are nondiagnostic. The exact cause of your symptoms has not been determined, but is felt to be due to in part to a combination of a viral syndrome and chest pain related anxiety. A COVID test was performed and is pending. Please go home and rest and continue all home medications as prescribed. Additionally, take hydrocodone as needed for chest wall pain. Please continue self quarantine until you are asymptomatic and have confirmed negative COVID results. All discharge instructions reviewed with patient and/or family. Voiced understanding. Scripts Hydrocodone/Acetaminophen (Hydrocodone-Acetamin 5-325 mg) 1 Each Tablet 1 EACH PO Q6H, #10 TAB Prov: KRIS HARKINS DO 02/08/20 KRIS HARKINS DO Feb 08, 2020 17:57
[2020-02-08] MEDS ORDERED: HYDR-3812 PO (18:05)
[2020-02-08 18:09] VITALS: BP 171/63
--- OUTSIDE RECORDS SUMMARY | 2020-02-08 19:02 | XMS REPORT | Summary of Care ---
Author Author [facility] er Organization [facility] er Address Unknown Phone Unavailable Encounter [facility] [id number] Date(s): 05/04/17 - 05/04/17 [facility] [address] [address] Encounter Diagnosis Anal fissure, unspecified (Final) - Other specified diseases of anus and rectum (Final) - Chronic obstructive pulmonary disease, unspecified (Final) - Gastro-esophageal reflux disease without esophagitis (Final) - Discharge Disposition: Home - Attending Physician: EARLE HORN MD Admitting Physician: EARLE HORN MD Referring Physician: EARLE HORN MD Vital Signs Most recent to 1 oldest [Reference Range]: Vital Signs Pre activity Status/Type (05/04/17 5:12 PM) Temperature 97.6 DegF [96.8-99.7 DegF] (05/04/17 5:12 PM) Temp Method Temporal (05/04/17 5:12 PM) Heart Rate 76 bpm (05/04/17 5:12 PM) Respiratory Rate 16 br/min [15-20 br/min] (05/04/17 5:12 PM) Blood Pressure 127/67 mmHg [90-180/50-90 mmHg] (05/04/17 5:12 PM) NIBP MAP 81 mmHg (05/04/17 5:00 PM) NIBP MAP Calc 87 (05/04/17 5:12 PM) Problem List No data available for this section Allergies, Adverse Reactions, Alerts Substance Reaction Severity Status penicillin Nausea Active Keflex Nausea Active Medications Advair Diskus 250 mcg-50 mcg inhalation powder 1 Puff, Inhalation, BID (2 times a day), 0 Refill(s), Indication: COPD Start Date: 04/29/17 Status: Ordered albuterol inhaler 2 Puff, Inhalation, 4 times a day, PRN Air Hunger, 0 Refill(s), Indication: COPD Start Date: 04/29/17 Status: Ordered atorvastatin 10 mg oral tablet 1 TAB, PO, QHS (At bedtime), 0 Refill(s), Indication: High Cholesterol Start Date: 04/29/17 Status: Ordered escitalopram 20 mg oral tablet 1 TAB, PO, QHS (At bedtime), 0 Refill(s), Indication: Depression Start Date: 04/29/17 Status: Ordered FIBER ADVANCE FIBER ADVANCE, 1 TAB, Chewed, Daily, 0 Refill(s), Indication: Constipation Start Date: 04/29/17 Status: Ordered Flexeril 10 mg oral tablet 1 TAB, PO, TID (3 times a day), PRN Muscle Spasms, 0 Refill(s), Indication: Musc le Spasms Start Date: 04/29/17 Status: Ordered ibuprofen 200 mg oral tablet 2 TAB, PO, Q4H (Every 4 hours), PRN pain, 0 Refill(s), Indication: Pain Start Date: 04/29/17 Status: Ordered pantoprazole 40 mg oral delayed release tablet 1 TAB, PO, Daily, 0 Refill(s), Indication: Reflux Start Date: 04/29/17 Status: Ordered RectiCare 5% topical cream 1 LAZARUS, TOP, 4 times a day, 0 Refill(s), Indication: Pain Start Date: 04/29/17 Status: Ordered traMADol 50 mg oral tablet 1 TAB, PO, Q12H (Every 12 hours), PRN as needed for pain, 0 Refill(s), Indicatio n: Pain Start Date: 04/29/17 Status: Ordered Valium 2 mg oral tablet 1 TAB, PO, BID (2 times a day), 0 Refill(s) Start Date: 05/04/17 Status: Ordered Xanax 1 mg oral tablet 1 TAB, PO, BID (2 times a day), PRN as needed for anxiety, 0 Refill(s), Indicati on: Anxiety Start Date: 04/29/17 Status: Ordered Xanax 1 mg oral tablet 1 TAB, PO, BID (2 times a day), 0 Refill(s) Start Date: 05/04/17 Status: Ordered Results HEMATOLOGY Most recent to 1 oldest [Reference Range]: Hemoglobin POC 14.6 g/dL 1 [13.5-18.0 g/dL] (05/04/17 12:14 PM) Hematocrit POC 43 % [40-52 %] (05/04/17 12:14 PM) 1Result Comment: Meter ID: [id number] Airplane Refueler: [id number] JOSE VAZQUEZ CHEMISTRY Most recent to 1 oldest [Reference Range]: Sodium POC [137-147 141 mmol/L mmol/L] (05/04/17 12:14 PM) Potassium POC 4.0 mmol/L [3.8-5.2 mmol/L] (05/04/17 12:14 PM) Glucose Level (POC) 91 mg/dL [70-100 mg/dL] (05/04/17 12:14 PM) Immunizations No data available for this section Procedures Procedure Date Related Diagnosis Body Site Status Rectal Fissurectomy/Fistulectomy1 05/04/17 Comp leted 1auto-populated from documented surgical case Social History No data available for this section Functional Status No data available for this section Assessment and Plan No data available for this section Hospital Discharge Instructions No data available for this section
--- OUTSIDE RECORDS SUMMARY | 2020-02-08 19:02 | XMS REPORT | Summary of Care ---
Author Author [facility] er Organization [facility] er Address Unknown Phone Unavailable Encounter [facility] [id number] Date(s): 05/04/17 - 05/04/17 [facility] [address] [address] Encounter Diagnosis Anal fissure, unspecified (Final) - [...] (05/04/17 12:14 PM) 1Result Comment: Meter ID: [id number] Tug Captain: [id number] JOSE VAZQUEZ CHEMISTRY Most recent to 1 [...]
--- OUTSIDE RECORDS SUMMARY | 2020-02-08 19:03 | XMS REPORT | Summary of Care ---
Author Author [facility] Organization [facility] Address Unknown Phone Unavailable Encounter [facility] [id number] Date(s): 05/11/19 - 05/11/19 [facility] [address] [address] Discharge Disposition: Home - Attending Physician: VENKAT CLANCY MD Admitting Physician: VENKAT CLANCY MD Referring Physician: VENKAT CLANCY MD Vital Signs Most recent to 1 oldest [Reference Range]: Vital Signs Post procedure Status/Type (05/11/19 11:40 AM) Temperature 97.7 DegF [96.8-99.7 DegF] (05/11/19 10:30 AM) Temp Method Temporal (05/11/19 10:30 AM) Heart Rate 76 bpm (05/11/19 11:15 AM) Respiratory Rate 21 br/min [15-20 br/min] *HI* (05/11/19 11:40 AM) Blood Pressure 137/85 mmHg [90-180/50-90 mmHg] (05/11/19 11:40 AM) NIBP MAP Calc [65 102 mmHg mmHg] (05/11/19 11:40 AM) Heart Rhythm Sinus/atrial rhythm Interpretation (05/11/19 11:15 AM) Problem List No data available for this section Allergies, Adverse Reactions, Alerts Substance Reaction Severity Status penicillin Nausea Active Keflex Nausea Active Bactrim Active Medications montelukast 4 mg, PO, Daily, 0 Refill(s) Start Date: 05/11/19 Status: Ordered Results No data available for this section Immunizations No data available for this section Procedures Procedure Date Related Diagnosis Body Site Status Colonoscopy Diagnostic1 05/11/19 Completed 1auto-populated from documented surgical case Social History No data available for this section Functional Status No data available for this section Assessment and Plan No data available for this section Hospital Discharge Instructions No data available for this section
--- OUTSIDE RECORDS SUMMARY | 2020-02-08 19:03 | XMS REPORT | Summary of Care ---
Author Author [facility] er Organization [facility] er Address Unknown Phone Unavailable Encounter [facility] [id number] Date(s): 05/04/17 - 05/04/17 [facility] [address] [address] Final: Anal fissure, unspecified Final: Other specified diseases of anus and rectum Final: Chronic obstructive pulmonary disease, unspecified Final: Gastro-esophageal reflux disease without esophagitis Discharge Disposition: Home - Attending Physician: EARLE [...] (05/04/17 12:14 PM) 1Result Comment: Meter ID: [id number] Thread Roller: [id number] JOSE TAYLOR CHEMISTRY Most recent to 1 oldest [Reference Range]: Sodium POC [137-147 141 mmol/L mmol/L] (05/04/17 12:14 PM) Potassium POC 4.0 mmol/L [3.8-5.2 mmol/L] (05/04/17 12:14 PM) Glucose Level (POC) 91 mg/dL [70-100 mg/dL] (05/04/17 12:14 PM) Immunizations No data available for this section Procedures Procedure Date Related Diagnosis Body Site Rectal Fissurectomy/Fistulectomy1 05/04/17 1auto-populated from documented surgical case Social History No data available for this section Functional Status No data available for this section Assessment and Plan No data available for this section Hospital Discharge Instructions No data available for this section
--- OUTSIDE RECORDS SUMMARY | 2020-02-08 19:03 | XMS REPORT | Summary of Care ---
Author Author [facility] er Organization [facility] er Address Unknown Phone Unavailable Encounter [facility] [id number] Date(s): 05/04/17 - 05/04/17 [facility] [address] [address] Discharge Disposition: Home - Attending Physician: KORY SHAVER, EARLE Arellano Admitting Physician: EARLE HORN MD Referring Physician: [...] (05/04/17 12:14 PM) 1Result Comment: Meter ID: [id number] Account Manager Relief: [id number] JOSE VAZQUEZ CHEMISTRY Most recent to 1 oldest [Reference Range]: Sodium POC [137-147 141 mmol/L mmol/L] (05/04/17 12:14 PM) Potassium POC 4.0 mmol/L [3.8-5.2 mmol/L] (05/04/17 12:14 PM) Glucose Level (POC) 91 mg/dL [70-100 mg/dL] (05/04/17 12:14 PM) Immunizations No data available for this section Procedures Procedure Date Related Diagnosis Body Site Exam Under Anesthesia1 05/04/17 1auto-populated from documented surgical case Social History No data available for this section Functional Status No data available for this section Assessment and Plan No data available for this section Hospital Discharge Instructions No data available for this section
--- OUTSIDE RECORDS SUMMARY | 2020-02-08 19:03 | XMS REPORT | Continuity of Care Document ---
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 06/15/2019 [facility] CHRONIC OBSTRUCTIVE PULMONARY DISEASE, U Active 06/15/2019 [facility] PERSONAL HISTORY OF NICOTINE DEPENDENCE Active 06/15/2019 [facility] GASTRO-ESOPHAGEAL REFLUX DISEASE WITHOUT Active 06/15/2019 [facility] BENIGN NEOPLASM OF RECTUM Acti ve 05/11/2019 [facility] HEMORRHAGE OF ANUS AND RECTUM Active 05/11/2019 [facility] ANAL FISSURE, UNSPECIFIED Acti ve 05/04/2017 [facility] OTHER SPECIFIED DISEASES OF ANUS AND REC Active 05/04/2017 [facility] Anal fissure, unspecified Final 05/14/2017 [facility] Other specified diseases of anus and rectum Final 05/14 [facility] Chronic obstructive pulmonary disease, unspecified Final 05/14/2017 [facility] Gastro-esophageal reflux disease without esophagitis Final 05/14/2017 [facility] Medications Medication Details Route Status Patient Instructions Ordering Provider Order Date Source tramadol hydrochloride 50 MG Oral Tablet 1 TAB, PO, Q8H (Every 8 hours), 0 Refill(s), Indication: Moderate Pain Active 06/07/2019 [facility] montelukast 4 mg, PO, Daily, 0 Refill(s) Active 05/11/2019 [facility] Alprazolam 1 MG Oral Tablet [Xanax] 1 TAB, PO, BID (2 times a day), 0 Refill(s) Active 05/04/2017 [facility] Diazepam 2 MG Oral Tablet [Valium] 1 TAB, PO, BID (2 times a day), 0 Refill(s) Active 05/04/2017 [facility] FIBER ADVANCE FIBER ADVANCE, 1 TAB, Chewed, Daily, 0 Refill(s), Indication: Constipation Active 04/29/2017 [facility] tramadol hydrochloride 50 MG Oral Tablet 1 TAB, PO, Q12H (Every 12 hours), PRN as needed for pain, 0 Refill(s), Indication: Pain Active 04/29/2017 [facility] Lidocaine 50 MG/ML Rectal Cream [Recticare] 1 LAZARUS, TOP, 4 times a day, 0 Refill(s), Indication: Pain Active 04/29/2017 [facility] ibuprofen 200 mg oral tablet 2 TAB, PO, Q4H (Every 4 hours), PRN pain, 0 Refill(s), Indication: Pain Active 04/29/2017 [facility] pantoprazole 40 mg oral delayed release tablet 1 TAB, PO, Daily, 0 Refill(s), Indication: Reflux Active 04/29/2017 [facility] Albuterol 0.09 MG/ACTUAT Metered Dose Inhaler 2 Puff, Inhalation, 4 times a day, PRN Air Hunger, 0 Refill(s), Indication: COPD Active 04/29/2017 [facility] escitalopram 20 mg oral tablet 1 TAB, PO, QHS (At bedtime), 0 Refill(s), Indication: Depression Active 04/29/2017 [facility] Advair Diskus 250 mcg-50 mcg inhalation powder 1 Puff, Inhalation, BID (2 times a day), 0 Refill(s), Indication: COPD Active 04/29/2017 [facility] atorvastatin 10 mg oral tablet 1 TAB, PO, QHS (At bedtime), 0 Refill(s), Indication: High Cholesterol Active 04/29/2017 [facility] Alprazolam 1 MG Oral Tablet [Xanax] 1 TAB, PO, BID (2 times a day), PRN as needed for anxiety, 0 Refill(s), Indication: Anxiety Active 04/29/2017 [facility] Cyclobenzaprine hydrochloride 10 MG Oral Tablet [Flexeril] 1 TAB, PO, TID (3 times a day), PRN Musc le Spasms, 0 Refill(s), Indication: Muscle Spasms Active 04/29/2017 [facility] Allergies, Adverse Reactions, Alerts Substance Category Reaction Severity Reaction type Status Date Reported Comments Source penicillin Assertion Nausea Drug allergy Active [facility] Keflex Assertion Nausea Drug allergy Active [facility] amoxicillin Assertion N/V Propensity to adverse reacti ons to drug Active [facility] Bactrim Assertion Nausea/Vomiting Drug allergy Active [facility] Immunizations No Data Provided for This Section Results Order Name Results Value Reference Range Date Interpretation Comments Source CHEMISTRY Potassium POC 4.0 mm ol/L 3.8 - 5.2 05/04/2017 [facility] CHEMISTRY Hematocrit POC 43 % 40 - 52 05/04/2017 [facility] CHEMISTRY Sodium POC 141 mm ol/L 137 - 147 05/04/2017 [facility] CHEMISTRY Hemoglobin POC 14.6 g /dL 13.5 - 18.0 05/04/2017 Result Comment: Meter ID: [id number]
Ope rator: [id number] [facility] Glucose Level (POC) 91 mg/ dL 70 - 100 05/04/2017 [facility] ISTAT SMM Glucose Level (POC) 91 mg/ dL 70 - 100 05/04/2017 N [facility] ISTAT SMM Sodium POC 141 mm ol/L 137 - 147 05/04/2017 N [facility] ISTAT SMM Potassium POC 4.0 mm ol/L 3.8 - 5.2 05/04/2017 N [facility] ISTAT SMM Hematocrit POC 43 % 40 - 52 05/04/2017 N [facility] ISTAT SMM Hemoglobin POC 14.6 g /dL 13.5 - 18.0 05/04/2017 N Meter ID: [id number]
Registered Safety Engineer: [id number] JOSE VAZQUEZ
[facility] No data available for this section No data available for this section [facility] Pathology Reports Report Value Date Source Surgical Pathology Final Report SURGICAL PATHOLOGY REPORT [facility] Laboratory Medical Department of Pathology Phone: Director [phone] Jose Manuel Mayers, [address] Fax: [place], [place] [address]- [phone] Surgical Pathology Report COLLECTED DATE/TIME: 06/15/2019 14:[address] INTERPRETER ORDERING PHYSICIAN: VENKAT CLANCY MD RECEIVED DATE/TIME: 06/16/2019 09:[address] INTERPRETER PATHOLOGIST: BROOKE CRUZ MD Final Diagnosis: Anal mucosa, anal papilla, excision: - Polypoid fragment of benign anal mucosa with chronic inflammation, consistent with anal papilla. [facility] Specimen(s) Received: Papilla Clinical Information: Hemorrhage of anus and rectum Gross Description: The specimen is labeled "papilla". The specimen consists of a pathak polypoid fragment of tissue measuring 0.4 x 0.4 x 0.6 cm. The specimen is bisected and submitted in cassette A1. [facility]/06/16/2019 [facility] CPT/HCPCS code 44560 Admit:06/15/2019 Patient [facility] Name: Disch:06/15/2019 MR#:[id number] [facility]#[id number] [facility] Admitting VENKAT CLANCY MD Unit: Physician: : 1965 Age:54 years Attending VENKAT CLANCY MD Physician: Sex: Male Print System Generated ID: Patient Day Surgery Chart Request [id number] Type: ID: Print Date06/19/2019 17:18 [facility] [place] Time: CERTIFIED COURT INTERPRETER Copy To: Privileged and Confidential do not re-release 06/15/2019 [facility] Karyn [place] Surgical Pathology Final Report SURGICAL PATHOLOGY REPORT [facility] [place] [facility] Medical Department of Pathology Phone: Director [phone] Jose Manuel Mayers, [address] Fax: [place] [address]- [phone] Surgical Pathology Report COLLECTED DATE/TIME: 05/11/2019 10:[address] INTERPRETER ORDERING PHYSICIAN: VENKAT CLANCY MD RECEIVED DATE/TIME: 05/11/2019 12:[address] INTERPRETER PATHOLOGIST: TIANNA WALTERS DO Final Diagnosis: A. Colonic mucosa, rectal polyps x 2, biopsies: - Sessile serrated adenomas x 2. B. Colonic mucosa, upper rectal polyp, biopsy: - Sessile serrated adenoma. [place] Specimen(s) Received: A. Rectal polyp x2 B. Upper rectal polyp Clinical Information: Rectal bleeding Gross Description: The specimen is labeled "rectal polyp" and consists of two fragments of pathak tissue each measuring 0.3 cm in greatest dimension. This tissue is submitted in toto in cassette A1. The specimen is labeled "upper rectal polyp" and consists of two fragments of pathak tissue each measuring 0.3 cm in greatest dimension. This tissue is submitted in toto in cassette B1. [facility]/05/11/2019 [facility] CPT/HCPCS code [id number] Admit:05/11/2019 Patient [facility] Name: Disch:05/11/2019 MR#:[id number] [facility]#[id number] Nursing [facility] Admitting VENKAT CLANCY MD Unit: Physician: : 1965 Age:53 years Attending VENKAT CLANCY MD Physician: Sex: Male Print System Generated ID: Patient Outpatient Chart Request [id number] Type: ID: Print Date05/12/2019 17:[address] INTERPRETER [facility] Time: Copy To: Privileged and Confidential do not re-release 05/11/2019 [facility] Surgical Pathology Final Report Black Belt Black Belt: TRUPTI Pathologist group, MARCELA SURGICAL PATHOLOGY REPORT [facility] [address] [place] [address] Surgical Pathology Report [id number] FINAL DIAGNOSIS: Skin, "anal papilla": - Hypertrophied / inflamed anal papilla. - Negative for dysplasia and malignancy. [facility] Specimen(s) Received: Anal papilla Clinical Information: Anal fissure Gross Description: The specimen is received in formalin labeled with the patient name and "anal papilla," and consists of two pink-pathak soft tissue fragments measuring 0.7 x 0.3 x 0.3 cm and 0.5 x 0.4 x 0.2 cm, entirely submitted in cassette A1. 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 PROCEDURE PERFORMED: Partial internal sphincterotomy with removal of anal canal wyatt and anoplasty repair. ANESTHESIA: General. FINDINGS: There is noted to be a very deep posterior midline anal fissure. The fibers of the internal sphincter muscle could be noted at the base of this ulceration with the margins were scarred. There was noted to be metal skin wyatt just at and below the dentate line, mainly extending from the posterior midline to the right lateral region. DESCRIPTION OF PROCEDURE: The patient was prepared and draped in a sterile manner under adequate general anesthesia in prone position. The perianal region was anesthetized with 0.25% strength Marcaine with 1:200,000 strength epinephrine. Approximately 30 mL was instilled. Approximately 20 mL of Exparel was infiltrated for long-term analgesia. A left lateral incision was made at the anal verge. The internal sphincter muscle was appropriately identified and was partially incised. This wound was left open to heal by secondary intention. An incision was made around the previously made old scar from a previous stapled hemorrhoidectomy and then an incision was taken down to the muscularis propria; at which point, multiple wyatt were noted and then subsequently removed. This was extended from the posterior midline to the right posterior region. After the wyatt were removed, the wound was then repaired with multiple interrupted sutures of 2-0 and 3-0 Vicryl. At the termination of the procedure, hemostasis was noted to be excellent. Silvadene cream was then applied along with sterile dressings. The patient tolerated the procedure well. Sponge and instrument counts correct. The patient was taken back to recovery area in stable and good condition. [id number] 06/15/2019 [facility] Operative Report DATE OF ADMIS SHUN: 05/11/2019 DATE OF SERVICE: 05/11/2019 SURGEON: VENKAT CLANCY MD PREOPERATIVE DIAGNOSIS: Rectal bleeding with screening colonoscopy. POSTOPERATIVE DIAGNOSIS: Rectal bleeding with screening colonoscopy. PROCEDURE PERFORMED: Total colonoscopy with polypectomy. FINDINGS: There was noted to be a 1.5 cm sessile polyp in the upper rectum and a 7 mm pedunculated polyp in the mid rectum. The remainder of the colon was otherwise completely unremarkable and within normal limits. Bowel preparation was excellent. DESCRIPTION OF PROCEDURE: A long discussion was held with the patient regarding all possible benefits and complications of the intended procedure. The patient understood and wished to continue with the procedure. The patient was taken to the endoscopy suite and placed in left lateral Rice position. The patient was given propofol by Anesthesia for sedation. The [employer] video colonoscope was passed transanally and advanced to cecum without difficulty. The ileocecal valve and appendiceal orifice were identified. The colonoscope was then removed in a slow, sequential manner, closely observing the entire luminal surface of the colon with the above-noted findings. The colonoscope was then brought down to the rectum; at which point, a 1.5 cm sessile polyp was noted. This was removed with snare electrocautery, retrieved, and sent to Pathology for evaluation. Hemostasis was excellent. The 7 mm pedunculated polyp was removed in a similar manner. At the termination of the procedure, hemostasis was excellent. Colonoscope was then removed. The patient tolerated the procedure well and was alert, oriented, and without complaints at the termination of the procedure. The patient was then taken back to recovery area in stable and good condition. DISPOSITION: The patient told to call immediately if he had abdominal pain, fever, large mass, or rectal bleeding. The patient to avoid driving or using machinery in 24 hours. The patient told to have a repeat colonoscopy in 3 years. [id number] /[id number] 05/11/2019 [facility] Operative Report Date of Surge ry 05/04/2017 Preoperative Diagnosis 1. Anorectal pain/spasm 2. Anal fissure Postoperative Diagnosis anorectal pain and spasm anal fissure multiple small anal papillae Procedure Performed exam under anesthesia with anal block for anorectal surgery right lateral internal sphincterotomy/fissurectomy Excision of anal papillae Type of Anesthesia general Indications Mr. East is a 51-year-old male who underwent PPH stapled hemorrhoidectomy in January 2017 with a another surgeon. He has had severe anorectal pain and spasm as well as bleeding since that time. Bleeding has mostly resolved but he still has significant pain . He has been diagnosed with a posterior fissure and was placed on Nifedipine compound. Although the Nifedipine compound seem to have helped somewhat he still has severe anorectal pain with and without bowel movements . Benzodiazepines are helping somewhat. At this point he is very frustrated and has the sense that there are wyatt extruding from the staple line. In the office I was unable to visualize any wyatt. I have proposed exam under anesthesia with fissurectomy and sphincterotomy. I plan to inject long- acting Marcaine as well. The procedure was explained to the patient with regard to risks, benefits, and alternatives and he agreed to proceed. We will prescribe a no other prescription of Valium for him. A discussion was had with him regarding the potential for abuse and difficulty in coming off this medication he vocalized understanding. Surgeon Earle Perez MD Financial Analysis Manager(s) None Findings posterior fissure with some chronic features (cauterized and right lateral sphincterotomy performed) scattered minor fissuring of the anal canal (cauterized) PPH staple line is identified, no wyatt visible, majority of staple line well above dentate line but it is somewhat closer to the dentate line anteriorly. Unanticipated Events/Complications None Specimen(s) anal papilla Technique/Description of Procedure the patient was taken to the operating room and placed under general anesthesia. He was then placed on the operating room table in the prone lexii- knife position with all bony prominences and pressure points padded. His buttocks were gently taped apart and he was prepped and draped in the normal sterile fashion. A confirmatory time-out with regard to patient, site, and procedure was performed accurately. We began by performing an anal block with 20 cc of Exparel diluted to 40 cc. Injection was performed at the anal margin in 4 quadrants in a fanning distribution injecting the long-acting Marcaine into the sphincter musculature and perirectal tissues. Digital rectal exam and gentle anal dilatation was performed . There was some mild hypertonicity. Anorectal retractors were used to visualize the low rectum and anal canal. A posterior fissure was visualized which was approximately 3-4 mm in length and did have some muscle visible in the base. This fissure was cauterized to stimu late healing. Several other much more minor fissuring areas of the anal canal were cauterized as well, including 1 anteriorly. Staple line was easily palpable and visualized. No wyatt were identified. Several scattered anal papillae were excised and/or cauterized with Bovie cautery . The excised papillae were sent for permanent pathology. Due to his sphincter hypertonicity, we then proceeded to perform a right lateral internal sphincterotomy. The internal sphincter was placed on tension with a speculum retractor. The intersphincteric groove was palpated in a stab incision was made with a knife overlying this groove. Metzenbaum scissors were used to carefully dissect and isolate the internal sphincter muscle only it was divided with Metzenbaum scissors to the proximal extent of the fissure itself. Good relaxation was obtained. This small stab incisions were then was then closed with a [id number] 3 0 Monocryl suture. Entirety the anorectum was inspected for bleeding, irrigated, and no bleeding was identified. A dressing was applied and he was transferred to the recovery area in stable condition Implants and Devices None Estimated Blood Loss 5 cc Patient Condition/Disposition Stable to PACU in addition to his fissure, which certainly can cause anorectal hypertonicity and spasm with pain, I believe this patient has a significant pelvic floor muscle spasm as result of his stapled hemorrhoidectomy. This is a described possible complication of this procedure and often is not necessarily related to technique. Valium seems to have helped alleviate his discomfort considerably and a new prescription was written for this with some caution about overuse and potential for abuse. Botox injection was denied by his insurance carrier for the procedure today. I feel like this may be his best bet for durable long-term relief from his spasming and will ask my office to look into potential to get this covered. 05/04/2017 [facility] Discharge Summaries No Data Provided for This Section History and Physicals No Data Provided for This Section Vital Signs Vital Sign Value Date Comments Source Heart Rate 72 bpm 06/15/2019 [facility] Respiratory Rate 20 br/min 06/15/2019 [facility] NIBP MAP 97 mm[Hg] 06/15/2019 [facility] Inet NIBP Systolic 119 mm[Hg] 06/15/2019 [facility]et NIBP Diastolic 89 mm[Hg] 06/15/2019 [facility] NIBP MAP Calc 99 mm[Hg] 06/15/2019 [facility] Temperature 97.2 [degF] 06/15/2019 [facility] Temp Method Temporal (06/15/19 3:05 PM) 06/15/2019 [facility] Heart Rhythm Interpretation Si nus/atrial rhythm (06/15/19 3:05 PM) 06/15/2019 [facility] NIBP Method Automatic ( 9 3:05 PM) 06/15/2019 [facility] BP Location Arm, right ( 3:05 PM) [facility] Cuff Size Large (06/15/19 3 :05 PM) [facility] NIBP Alarms set and on Yes ( 3:05 PM) 06/15/[facility] Vital Signs Status/Type Pre Pr ocedure (06/15/19 11:30 AM) 06/15/2019 [facility] NIBP MAP Calc 102 mm[Hg] 05/11/2019 [facility] In[facility] NIBP Systolic 137 mm[Hg] 05/11/2019 [facility] NIBP Diastolic 85 mm[Hg] 05/11/2019 [facility] Respiratory Rate 21 br/min 05/11/2019 [facility] Vital Signs Status/Type Post p rocedure (05/11/19 11:40 AM) 05/11/2019 [facility] Heart Rhythm Interpretation Si nus/atrial rhythm (05/11/19 11:15 AM) 05/11/2019 [facility] Heart Rate 76 bpm 05/11/2019 [facility] Temp Method Temporal (05/11/19 10:30 AM) 05/11/2019 [facility] Temperature 97.7 [degF] 05/11/2019 [facility] NIBP MAP Calc 87 05/04/2017 [facility] Temperature 97.6 [degF] 05/04/2017 [facility] Inet NIBP Systolic 127 mm[Hg] 05/04/2017 [facility] Inet NIBP Diastolic 67 mm[Hg] 05/04/2017 [facility] Temp Method Temporal (05/04/17 5:12 PM) 05/04/2017 [facility] Heart Rate 76 bpm 05/04/2017 [facility] Vital Signs Status/Type Pre ac tivity (05/04/17 5:12 PM) 05/04/2017 [facility] Respiratory Rate 16 br/min 05/04/2017 [facility] NIBP MAP 81 mm[Hg] 05/04/2017 [facility] Encounters Location Location Details Encounter Type Encounter Number Reason For Visit Attending Provider ADM Date DC Date Status Source 006 006 S [id number] NURIS CLANCY MD 06/15/2019 06/15/2019 Active [facility] [place] 006 006 O [id number] NURIS CLANCY MD 05/11/2019 05/11/2019 Active [facility] ssion 006 006 S [id number] OTHER MUSCLE SPASM, AN AL FISSURE, UNSPECIFIED EARLE PEREZ MD 05/04/2017 05/04/2017 Active [facility] Procedures Procedure Code Date Perfomer Comments Source Anoplasty<sup>1</sup> 06/15/2019 auto-populated from documented surgical case [facility] Sphincterectomy/Internal<sup>2</sup> 06/15/2019 auto-populated from documented surgical case [facility] Colonoscopy Diagnostic<sup>1</sup> 05/11/2019 auto-populated from documented surgical case [facility] Rectal Fissurectomy/Fistulectomy<sup>1</sup> 05/04/2017 auto- populated from documented surgical case [facility] Exam Under Anesthesia<sup>1</sup> 05/04/2017 auto-populated from documented surgical case [facility] Plan of Care No Data Provided for This Section Social History No Data Provided for This Section Assessment and Plan No Data Provided for This Section Family History No Data Provided for This Section Advance Directives No Data Provided for This Section Functional Status No Data Provided for This Section
--- OUTSIDE RECORDS SUMMARY | 2020-02-08 19:03 | XMS REPORT | Summary of Care ---
Author Author [facility] Organization [facility] Address Unknown Phone Unavailable Encounter [facility] Sheth [id number] Date(s): 05/04/17 - 05/04/17 [facility] [address] [id number] Discharge Disposition: Home - Attending Physician: KORY [...] (05/04/17 12:14 PM) 1Result Comment: Meter ID: [id number] Electrical Hardware Engineer: [id number] JOSE VAZQUEZ CHEMISTRY Most recent to 1 [...]
--- OUTSIDE RECORDS SUMMARY | 2020-02-08 19:03 | XMS REPORT | Summary of Care ---
Author Author [facility] er Organization [facility] er Address Unknown Phone Unavailable Encounter [facility] Sheth [id number] Date(s): 05/04/17 - 05/04/17 [facility] [address] [address] Discharge Disposition: Home - Attending Physician: [...] (05/04/17 12:14 PM) 1Result Comment: Meter ID: [id number] Certified Ophthalmic Surgical Assistant: [id number] JOSE VAZQUEZ CHEMISTRY Most recent to 1 [...]
--- OUTSIDE RECORDS SUMMARY | 2020-02-08 19:03 | XMS REPORT | Summary of Care ---
Author Author [facility] er Organization [facility] er Address Unknown Phone Unavailable Encounter [facility] Sheth [id number] Date(s): 05/04/17 - 05/04/17 [facility] [address] [address] Final: Anal fissure, unspecified Final: [...] (05/04/17 12:14 PM) 1Result Comment: Meter ID: [id number] District Plant Superintendent: [id number] JOSE TAYLOR CHEMISTRY Most recent to 1 [...]
--- OUTSIDE RECORDS SUMMARY | 2020-02-08 19:03 | XMS REPORT | Summary of Care ---
Author Author [email or web address] Organization [facility] Address Unknown Phone Unavailable Care Team Providers Care Beauty Specialist Name Role Phone HERNAN MEYER MD PCP Encounter [facility] Pool [id number] Date(s): 06/15/19 - 06/15/19 [facility] [address] [address] Discharge Disposition: Home - 01 Attending Physician: VENKAT CLANCY MD Admitting Physician: VENKAT CLANCY MD Referring Physician: VENKAT CLANCY MD Vital Signs Most recent to 1 oldest [Reference Range]: Vital Signs Pre Procedure Status/Type (06/15/19 11:30 AM) Temperature 97.2 DegF [96.8-99.7 DegF] (06/15/19 3:05 PM) Temp Method Temporal (06/15/19 3:05 PM) Heart Rate 72 bpm (06/15/19 4:00 PM) Heart Rate Location Auto BP, Continuous Ice Skating Coach (06/15/19 3:05 PM) Respiratory Rate 20 br/min [15-20 br/min] (06/15/19 4:00 PM) Blood Pressure 119/89 mmHg [90-180/50-90 mmHg] (06/15/19 4:00 PM) NIBP MAP [65 mmHg] 97 mmHg (06/15/19 4:00 PM) NIBP MAP Calc [65 99 mmHg mmHg] (06/15/19 4:00 PM) NIBP Alarms set and Yes on (06/15/19 3:05 PM) BP Location Arm, right (06/15/19 3:05 PM) NIBP Method Automatic (06/15/19 3:05 PM) BP Cuff Size Large (06/15/19 3:05 PM) Heart Rhythm Sinus/atrial rhythm Interpretation (06/15/19 3:05 PM) Problem List No data available for this section Allergies, Adverse Reactions, Alerts Substance Reaction Severity Status amoxicillin N/V Active penicillin Nausea Active Keflex Nausea Active Bactrim Nausea/Vomiting Active Medications traMADol 50 mg oral tablet 1 TAB, PO, Q8H (Every 8 hours), 0 Refill(s), Indication: Moderate Pain Start Date: 06/07/19 Status: Ordered Results No data available for this section Immunizations No data available for this section Procedures Procedure Date Related Diagnosis Body Site Status Anoplasty1 06/15/19 Completed Sphincterectomy/Internal2 06/15/19 Completed 1auto-populated from documented surgical case 2auto-populated from documented surgical case Social History No data available for this section Functional Status No data available for this section Assessment and Plan No data available for this section Hospital Discharge Instructions No data available for this section
--- OUTSIDE RECORDS SUMMARY | 2020-02-08 19:03 | XMS REPORT | Summary of Care ---
Author Author [facility] er Organization [facility] er Address Unknown Phone Unavailable Encounter [facility] Sheth [id number] Date(s): 05/04/17 - 05/04/17 [facility] [address] [address] Final: Anal fissure, unspecified Final: Other [...] (05/04/17 12:14 PM) 1Result Comment: Meter ID: [id number] Health Care Manager: [id number] JOSE TAYLOR CHEMISTRY Most recent to 1 [...]
--- OUTSIDE RECORDS SUMMARY | 2020-02-08 19:03 | XMS REPORT | Summary of Care ---
Author Author [facility] er Organization [facility] er Address Unknown Phone Unavailable Encounter [facility] Sheth [id number] Date(s): 05/04/17 - 05/04/17 [facility] [address] [address] Final: Anal fissure, unspecified Final: Other specified [...] (05/04/17 12:14 PM) 1Result Comment: Meter ID: [id number] Auto Fleet Maintenance Manager: [id number] JOSE TAYLOR CHEMISTRY Most recent to 1 [...]
--- OUTSIDE RECORDS SUMMARY | 2020-02-08 19:03 | XMS REPORT | Summary of Care ---
Author Author [facility] er Organization [facility] er Address Unknown Phone Unavailable Encounter [facility] Sheth [id number] Date(s): 05/04/17 - 05/04/17 [facility] [address] [address] Final: Anal fissure, unspecified Final: Other specified [...] (05/04/17 12:14 PM) 1Result Comment: Meter ID: [id number] Manager Oracle: [id number] JOSE TAYLOR CHEMISTRY Most recent to 1 [...]
--- OUTSIDE RECORDS SUMMARY | 2020-02-08 19:04 | XMS REPORT | Clinical Summary ---
Author Author [facility] Organization [facility] Address Unknown Phone Unavailable Care Team Providers Care Backpackers Manager Name Role Phone Tj Saenz MD PCP Rukhsana Harris MD [phone] Дмитрий Doshi MD Unavailable Source Comments Some departments are not documenting in the electronic medical record. If you d o not see the information that you expected, contact Release of Information in [facility] [employer] Information Management department at [phone] for further assistan ce in locating additional records.[facility] Allergies Comments Active Allergy Reactions Severity Noted Date Sulfamethoxazole-Trimetho VOMITING, Low 03/05 prim DIZZINESS Cephalexin NAUSEA AND Low 02/11/2015 VOMITING Penicillins ANAPHYLAXIS High 02/11/2015 Medications End Date Status Medication Sig Dispensed Refills Start Date Active ALPRAZolam (XANAX) 1 mg Take 0.5 mg 0 tablet by mouth every 8 hours as needed. Active atorvastatin (LIPITOR) 10 Take 10 mg by 5 02/03 mg tablet mouth daily. 9 Active cyclobenzaprine Take 10 mg by 2 (FLEXERIL) 10 mg tablet mouth daily. 9 Active montelukast (SINGULAIR) Take 10 mg by 5 10 mg tablet mouth at 9 bed[address] daily. Active pantoprazole DR Take 40 mg by 5 (PROTONIX) 40 mg tablet mouth daily. 9 Active escitalopram oxalate Take 20 mg by 5 (LEXAPRO) 20 mg tablet mouth daily. 9 Active Problems Problem Noted Date Tremor 03/14/2019 Anxiety 03/14/2019 Encounters Care Team Description Date Type Specialty Eliz Judge Financial Clearance 01/25/2020 Telephone Oncology Eliz Judge New Patient 11/16/2019 Telephone Oncology from Last 3 Months Family History Medical History Relation Name Comments Dementia Father Motor Neuron Disease Father Parkinson's Father Tremor Father Cancer Mother Diabetes Mother Neuropathy Mother Thyroid Disease Mother Relation Name Status Comments Father Mother Social History Date Tobacco Use Types Packs/Day Years Used Former Smoker Smokeless Tobacco: Never Used Drinks/Week oz/Week Comments Alcohol Use Yes Sex Assigned at Date Recorded Not on file Industry Job Start Date Occupation Not on file Not on file Not on file Travel End Travel History Travel Start No recent travel history available. Last Filed Vital Signs Reading Time Taken Comments Vital Sign 121/86 03/14/2019 8:46 AM CDT Blood Pressure 51 03/14/2019 8:46 AM CDT Pulse - - Temperature 16 03/14/2019 8:32 AM CDT Respiratory Rate - - Oxygen Saturation - - Inhaled Oxygen Concentration 90.9 kg (200 lb 6.4 oz) 03/14/2019 8:32 AM CDT Weight 188 cm (6' 2") 03/14/2019 8:32 AM CDT Height 25.73 03/14/2019 8:32 AM CDT Body Mass Index Plan of Treatment Health Maintenance Due Date Last Done Comments HIV SCREENING 1981 DTAP/TDAP VACCINES (1 - 1984 Tdap) HEPATITIS C SCREENING 1984 PHYSICAL (COMPREHENSIVE) 1984 EXAM COLORECTAL CANCER 2016 SCREENING SHINGLES RECOMBINANT 2016 VACCINE (1 of 2) INFLUENZA VACCINE 04/04/2020 Results Not on filefrom Last 3 Months Insurance Type Payer Benefit Subscriber ID Effective Phone Address Plan / Dates Group Indemnity [facility] xxxxxxxxx 2020-P CHOICE/CHO resent ICE PLUS (Home) [id number] Advance Directives 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
--- OUTSIDE RECORDS SUMMARY | 2020-02-08 19:04 | XMS REPORT | Encounter Summary ---
Author Author [facility] Organization [facility] Address Unknown Phone Unavailable Care Team Providers Care Cat Tender Name Role Phone Tj Saenz MD PCP Rukhsana Harris MD [phone] Дмитрий Doshi MD Unavailable Reason for Visit * Reason Comments New Patient Encounter Details Care Team Description Date Type Department Eliz Judge New Patient 11/16/2019 [facility]phone [facility] [address] [place] [address] Social History Date Tobacco Use Types Packs/Day Years Used Former Smoker Smokeless Tobacco: Never Used Drinks/Week oz/Week Comments Alcohol Use Yes Sex Assigned at Date Recorded Not on file Industry Job Start Date Occupation Not on file Not on file Not on file Travel End Travel History Travel Start No recent travel history available. documented as of this encounter Functional Status Date of Assessment Functional Status Response 03/14/2019 Does the patient have a hearing impairment: No 03/14/2019 Does the patient have a visual impairment: Yes 03/14/2019 Does the patient have impaired ambulation: No 03/14/2019 Does the patient have an activity of daily living No (ADL) impairment: 03/14/2019 Does the patient have an instrumental activity of No daily living (IADL) impairment: Date of Assessment Cognitive Status Response 03/14/2019 Does the patient have a cognitive impairment: Yes documented as of this encounter Miscellaneous Notes * Telephone Encounter - Eliz Judge - 11/16/2019 9:54 AM CDT New Pt Appt: Mon. (04/29/20) at 8:30AM with Dr. Wai Camacho Pt lost his job since we spoke on 11.17.19 and charted rec hx. Phone # changed. Elizabeth bonner called on . (01/23/20). SELF-PAY $100. He his finalizing Disability application. Location: [facility], [address] [place] [address] Verbal directions to appt given to pt on 01.26.20. Pt has [employer]. CRS provider Preference: Dr. Wai Camacho Care Team: Updated on 11.16.19 Referring: Dr. West Garcia (retiring CRS) Dx: Establish Care. H/o multiple anorectal surgeries after hemorrhoidectomy gone bad. Additional CRS possibly needed after Physical Therapy pt stated Dr. Garcia had noted. Verbal records hx from pt: GI Testin - EGD and colonoscopy by Dr. Lizandro Fairchild at [place], [place] May, 2019 - Colonoscopy by Dr. West Garcia at [facility]. Dr. West Garcia recommended yearly colonoscopies. Surgery: 2017 - Hemorrhoid procedure with stapler. 45 degree angle was incorrect. - Dr. Malik Fairchild at [place], [place]. Big knot in center of arm found to be a clot. Pt was discouraged by [facility]'s care so went to [facility] ED. Returne d to work. Blood from pant to boot. Pt Returned to [facility] ED. 2017 - Emergency Surgery - staple ripped loose. Can't touch pt. Need to see CRS. Referred to Dr. Adrian Perez (CRS) at [facility]. 2016/early 2017 - 2 surgeries to repair loose wyatt in the muscles and repaire d fissures by Dr. Adrian Perez (CRS) at [facility] 2017 - Spasms in testicle area pulling them up into stomach.Prostate is now enla rged. Dr. Дмитрий Doshi ([facility]) did an in-office procedure related to prostate. Found to be related to the hemorrhoid procedure that went wrong. Jun 15, 2019 - Sphincterotomy and sutured a 2+" fissure and removed as many stap les he could see by Dr. West Garcia at [facility] January, - planned in-office prostate procedure with Dr. Дмитрий Doshi. Radiology: US of R arm at [place], [place] General abdominal imaging at [place], [place] Imaging for dx of clots at [facility]. Physical Therapy for pelvic floor dysfunction by [facility] at [place], [place] for 9 weeks. Appt delayed due to COVID19. Dr. West Garcia to follow h im until after therapy. Pt missed his 3..[address] Garcia due to COVID1 9. Dr. Garcia's office declined to give pt a projected work release date. His of fice released pt from work. Dr. Garcia's office to fax records to [facility] ce. I recommended pt reach out to his PCP for projected work release date and to schedule a PT appt as soon as possible so they too may assist with a projected work release. He understood we will be triaging his appt in comparison to other referrals back logged and receiving. DENA Bueno. documented in this encounter Plan of Treatment Not on filedocumented as of this encounter Visit Diagnoses Not on filedocumented in this encounter
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
--- OUTSIDE RECORDS SUMMARY | 2020-02-08 19:04 | XMS REPORT | Encounter Summary ---
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 Role Phone Tj Saenz MD PCP Rukhsana Harris [place] [id number] Дмитрий Doshi MD Unavailable Reason for Visit * Reason Comments Financial Clearance Encounter Details Care Team Description Date Type Department Eliz Judge Financial Clearance 01/25/2020 Telephone [facility] [address] [place] [address] Social History Date Tobacco Use Types Packs/Day [...] * Telephone Encounter - Eliz Judge - 01/25/2020 9:10 AM CDT From: Eliz Judge Sent: January 9:10 AM To: Hospital FCs <[email or web address]>; [facility] FC's <[email or web address]>; [facility] FCs <[email or web address]>; CCSelfpay <[email or web address]> Subject: Screen SELF PAY: Mat East ( ) Team, Would you screen below SELF-PAY patient for an new patient office visit with Col orectal Surgery? Pt recently lost his healthcare due to loss of job. Pt is working to finalize his Disability and needs to see a Colorectal Surgery S pecialist to assist. REASON FOR REQUEST: Patient is SELF PAY, need approval to proceed. PATIENT NAME: Mat East MR # [id number] PATIENT : 67 DIAGNOSIS: Multiple anorectal surgeries with complications, pelvic floor dysfun ction PATIENT CONTACT NUMBER: [phone] PATIENT ADDRESS ([facility]): [address] [place] [id number] Is this a Self-Referral for Second Opinion? NO Department/Specialty/Location pt will be scheduled (if known): [facility] or [facility] INSURANCE INFORMATION INSURANCE PLAN NAME: SELF PAY SUBSCRIBER NAME & : Click here to enter text. Insurance ID#: Click here to enter text. Customer Service number: Click here to enter text. documented in this encounter Plan of Treatment Not on filedocumented as of this encounter Visit Diagnoses Not on filedocumented in this encounter
== END 2020-02-08 18:09 | disposition home or self-care (01) ==
LOC: EDUNIT# 14:48 → ER FS 14:49
DX: R07.89 Other chest pain (principal); F41.9 Anxiety disorder, unspecified; R19.7 Diarrhea, unspecified; J44.9 Chronic obstructive pulmonary disease, unspecified; E78.00 Pure hypercholesterolemia, unspecified; F32.9 Major depressive disorder, single episode, unspecified; K59.09 Other constipation; Z20.828 Contact with and (suspected) exposure to other viral communicable diseases; K21.0 Gastro-esophageal reflux disease with esophagitis; Z88.0 Allergy status to penicillin; Z88.1 Allergy status to other antibiotic agents; Z88.2 Allergy status to sulfonamides; Z79.51 Long term (current) use of inhaled steroids; Z87.891 Personal history of nicotine dependence; Z86.718 Personal history of other venous thrombosis and embolism; Z86.010 Personal history of colon polyps; Z85.46 Personal history of malignant neoplasm of prostate; Z82.49 Family history of ischemic heart disease and other diseases of the circulatory system
CPT/HCPCS: 36415; 71045; 80053; 84484; 85025; 85379; 96372; 96374; 96375; 99284; U0002; 87635

== ENCOUNTER 2020-09-25 11:17 | Emergency (ER) | payer OTHER ==
[~2020-09-25] VITALS: Ht 187 cm; Wt 95.0 kg
[~2020-09-25 11:17] MED LIST changes: +ACHD5005 PO; +ESCI20TA39 PO; -ESCI20TA45 PO; -MONT10TA26 PO; +MONT10TA32 PO; -PANT40TA3 PO; +PANT40TA52 PO; +PS30T PO; -PSEU30TA35 PO
--- NOTE | 2020-09-25 11:24 | ED Neurological Problem ---
General Stated Complaint: SEIZURE | HEAD INJ History of Present Illness Date Seen by Provider: Sep 25, 2020 Time Seen by Provider: 11:24 Initial Comments 55-year-old male presents with "head injury and upper thoracic/lower cervical pain. 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 That he thinks may be had a "seizure this morning. However description sounds more like a possible syncope event. Reports he got up out of bed was walking to the bathroom and then remembers waking up on the floor. He reports left-sided tremor which he takes medication for. Little bit of a left-sided headache that seems chronic. No focal deficits. He denies any chest pain, shortness of breath. He denies any numbness tingling. He denies any bowel or bladder loss. He does not have any tongue biting. No other systemic complaints. Allergies and Home Medications Allergies Coded Allergies: Penicillins (Unverified Allergy, Unknown, 01/26/17) cephalexin (Unverified Allergy, Unknown, 01/26/17) ciprofloxacin (Verified Allergy, Unknown, 06/05/19) sulfamethoxazole (Verified Allergy, Unknown, 06/05/19) trimethoprim (Verified Allergy, Unknown, 06/05/19) Home Medications Albuterol Sulfate 18 Gm Hfa.aer.ad, 2 PUFF INH Q4H PRN for SHORTNESS OF BREATH, (Reported) Alprazolam 2 Mg Tablet, 1-2 MG PO Q8H PRN for ANXIETY, (Reported) TAKES 1/2 TO 1 (2MG) TABLETS Atorvastatin Calcium 10 Mg Tablet, 10 MG PO DAILY, (Reported) Cyclobenzaprine HCl 10 Mg Tablet, 10 MG PO TID PRN for SPASMS, (Reported) Escitalopram Oxalate 20 Mg Tablet, 20 MG PO DAILY, (Reported) Fluticasone/Salmeterol 1 Each Blst.w.dev, 1 PUFF INH BID, (Reported) Hydrocodone/Acetaminophen 1 Each Tablet, 1 EACH PO Q6H Prescribed by: KRIS HARKINS on 02/08/205 Hydrocortisone/Pramoxine 30 Gm Cream.appl, RC BID PRN for HEMMORRHOID DISCOMFORT, (Reported) Montelukast Sodium 10 Mg Tablet, 10 MG PO HS, (Reported) Pantoprazole Sodium 40 Mg Tablet.dr, 40 MG PO DAILY, (Reported) Pseudoephedrine HCl 30 Mg Tablet, 30 MG PO Q6H PRN for CONGESTION, (Reported) Psyllium Husk (with Sugar) 3.4 Gm Powd.pack, 3.4 GM PO DAILY, (Reported) Patient Home Medication List Home Medication List Reviewed: Yes Review of Systems Review of Systems Constitutional: see HPI Eyes: No Symptoms Reported Ears, Nose, Mouth, Throat: no symptoms reported Respiratory: No cough, No short of breath Cardiovascular: see HPI; No chest pain, No palpitations Gastrointestinal: no symptoms reported; No abdominal pain, No nausea, No vomiting Genitourinary: no symptoms reported Musculoskeletal: see HPI Skin: no symptoms reported Psychiatric/Neurological: See HPI, Anxiety Endocrine: No Symptoms Reported Hematologic/Lymphatic: No Symptoms Reported Past Lynqraj-Sdxskm-Qfobbz Hx Patient Social History Alcohol Beverage of Choice: Beer Type Used: Cigarettes Former Smoker, Quit: Jan 26, 2013 2nd Hand Smoke Exposure: No Recent Hopitalizations: Yes Immunizations Up To Date Tetanus Booster (TDap): Unknown Date of Pneumonia Vaccine: May 05, 2018 Seasonal Allergies Seasonal Allergies: Yes Past Medical History Surgeries: Yes (SINUS SX, EYE SX FOR LAZY EYE, KNEE SCOPE, 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) Rectal Respiratory: Yes Asthma, COPD Cardiac: Yes Deep Vein Thrombosis, High Cholesterol, Hypotension Neurological: Yes Headaches /Migraines Reproductive Disorders: No Sexually Transmitted Disease: No HIV/AIDS: No Genitourinary: No Gastrointestinal: Yes Gastroesophageal Reflux, Chronic Constipation, Polyps, Esophagitis Musculoskeletal: No Endocrine: No HEENT: No Loss of Vision: Bilateral Hearing Impairment: Denies Cancer: Yes Prostate Psychosocial: Yes Anxiety, Depression Integumentary: No Blood Disorders: No Adverse Reaction/Blood Tranf: No Family Medical History Heart Disease, Cancer, Diabetes Physical Exam Vital Signs Vital Signs - First Documented 09/25/20 11:30 Temp 36.7 Pulse 61 Resp 22 B/P (MAP) 121/93 (102) Pulse Ox 98 O2 Delivery Room Air Capillary Refill : Height, Weight, BMI Height: 6'2.00" Weight: 204lbs. 0.0oz. 92.130093tz; 27.00 BMI Method:Stated General Appearance: no apparent distress HEENT: PERRL/EOMI, other (Small abrasion left temporal region) Neck: tender lateral, tender midline Respiratory: lungs clear, normal breath sounds Cardiovascular: normal peripheral pulses, regular rate, rhythm Gastrointestinal: non tender Extremities: normal range of motion Neurologic/Psychiatric: alert, normal mood/affect, oriented x 3, other (Slight tremors left side that are chronic) Crainal Nerves: normal hearing, normal speech, PERRL Coordination/Gait: normal gait Motor/Sensory: no motor deficit, no sensory deficit Focused Exam Lactate Level 09/25/20 11:30: Lactic Acid Level 1.04 Lactic Acid Level Laboratory Tests Test 09/25/20 11:30 Lactic Acid Level 1.04 MMOL/L (0.50-2.00) Progress/Results/Core Measures Results/Orders Lab Results Laboratory Tests Test 09/25/20 11:30 09/25/20 11:54 Range/Units White Blood Count 7.2 4.3-11.0 10^3/uL Red Blood Count 4.83 4.35-5.85 10^6/uL Hemoglobin 15.2 13.3-17.7 G/DL Hematocrit 44 40-54 % Mean Corpuscular Volume 91 80-99 FL Mean Corpuscular Hemoglobin 31 25-34 PG Mean Corpuscular Hemoglobin Concent 35 32-36 G/DL Red Cell Distribution Width 11.8 10.0-14.5 % Platelet Count 289 130-400 10^3/uL Mean Platelet Volume 10.3 7.4-10.4 FL Immature Granulocyte % (Auto) 0 % Neutrophils (%) (Auto) 64 42-75 % Lymphocytes (%) (Auto) 27 12-44 % Monocytes (%) (Auto) 8 0-12 % Eosinophils (%) (Auto) 1 0-10 % Basophils (%) (Auto) 0 0-10 % Neutrophils # (Auto) 4.6 1.8-7.8 X 10^3 Lymphocytes # (Auto) 1.9 1.0-4.0 X 10^3 Monocytes # (Auto) 0.6 0.0-1.0 X 10^3 Eosinophils # (Auto) 0.1 0.0-0.3 10^3/uL Basophils # (Auto) 0.0 0.0-0.1 10^3/uL Immature Granulocyte # (Auto) 0.0 0.0-0.1 10^3/uL Sodium Level 140 135-145 MMOL/L Potassium Level 4.6 3.6-5.0 MMOL/L Chloride Level 103 98-107 MMOL/L Carbon Dioxide Level 26 21-32 MMOL/L Anion Gap 11 5-14 MMOL/L Blood Urea Nitrogen 12 7-18 MG/DL Creatinine 1.08 0.60-1.30 MG/DL Estimat Glomerular Filtration Rate > 60 BUN/Creatinine Ratio 11 Glucose Level 103 70-105 MG/DL Lactic Acid Level 1.04 0.50-2.00 MMOL/L Calcium Level 9.3 8.5-10.1 MG/DL Corrected Calcium 8.5-10.1 MG/DL Magnesium Level 2.1 1.6-2.4 MG/DL Total Bilirubin 0.4 0.1-1.0 MG/DL Aspartate Amino Transf (AST/SGOT) 18 5-34 U/L Alanine Aminotransferase (ALT/SGPT) 14 0-55 U/L Alkaline Phosphatase 106 40-136 U/L Troponin I < 0.30 <0.30 NG/ML C-Reactive Protein 0.15 <0.50 MG/DL Total Protein 7.0 6.4-8.2 GM/DL Albumin 4.6 H 3.2-4.5 GM/DL Serum Alcohol < 10 <10 MG/DL Urine Color YELLOW Urine Clarity CLEAR Urine pH 6.0 5-9 Urine Specific Kendall 1.015 L 1.016-1.022 Urine Protein NEGATIVE NEGATIVE Urine Glucose (UA) NEGATIVE NEGATIVE Urine Ketones NEGATIVE NEGATIVE Urine Nitrite NEGATIVE NEGATIVE Urine Bilirubin NEGATIVE NEGATIVE Urine Urobilinogen 0.2 < = 1.0 MG/DL Urine Leukocyte Esterase NEGATIVE NEGATIVE Urine RBC (Auto) NEGATIVE NEGATIVE Urine RBC NONE /HPF Urine WBC RARE /HPF Urine Squamous Epithelial Cells RARE /HPF Urine Crystals NONE /LPF Urine Bacteria NEGATIVE /HPF Urine Casts NONE /LPF Urine Mucus NEGATIVE /LPF Urine Culture Indicated NO Urine Opiates Screen NEGATIVE NEGATIVE Urine Oxycodone Screen NEGATIVE NEGATIVE Urine Methadone Screen NEGATIVE NEGATIVE Urine Propoxyphene Screen NEGATIVE NEGATIVE Urine Barbiturates Screen POSITIVE H NEGATIVE Ur Tricyclic Antidepressants Screen NEGATIVE NEGATIVE Urine Phencyclidine Screen NEGATIVE NEGATIVE Urine Amphetamines Screen NEGATIVE NEGATIVE Urine Methamphetamines Screen NEGATIVE NEGATIVE Urine Benzodiazepines Screen POSITIVE H NEGATIVE Urine Cocaine Screen NEGATIVE NEGATIVE Urine Cannabinoids Screen POSITIVE H NEGATIVE My Orders Orders - TOMLIN,ALBERTO L DO Ct Head/Cervical Spine Wo (09/25/20 11:32) Chest 1 View Ap/Pa Only (3/24/21 11:32) Thoracic Spine 3v Ap Lat Swim (09/25/20 11:32) Accucheck Stat ONCE (09/25/20 11:32) Ed Iv/Invasive Line Start (09/25/20 11:32) Ekg Tracing (09/25/20 11:32) Monitor-Rhythm Ecg Trace Only (09/25/20 11:32) Alcohol (09/25/20 11:32) Cbc With Automated Diff (09/25/20 11:32) Drug Screen Stat (Urine) (09/25/20 11:32) Lactic Acid Analyzer (09/25/20 11:32) Magnesium (09/25/20 11:32) Ua Culture If Indicated (09/25/20 11:32) Crp Fs (09/25/20 11:32) Troponin I Fs (09/25/20 11:32) Comprehensive Metabolic Panel (09/25/20 12:21) Vital Signs/I&O 09/25/20 11:30 Temp 36.7 Pulse 61 Resp 22 B/P (MAP) 121/93 (102) Pulse Ox 98 O2 Delivery Room Air Initial ECG Impression Date: Sep 25, 2020 Initial ECG Impression Time: 11:32 Initial ECG Rate: 51 Initial ECG Rhythm: S.Jay Initial ECG Impression: Nonspecific Changes Comment Sinus bradycardia, no acute changes, nonspecific changes. Departure Impression Primary Impression: Syncope and collapse Additional Impressions: Cervical strain Qualified Codes: S16.1XXA - Strain of muscle, fascia and tendon at neck level, initial encounter Head injury, acute, with loss of consciousness Qualified Codes: S06.9X9A - Unspecified intracranial injury with loss of consciousness of unspecified duration, initial encounter Disposition: 01 HOME, SELF-CARE Condition: Stable Departure-Patient Inst. Referrals: SHILA DENIS MD (PCP/Family) Primary Care Physician Patient Instructions: Fainting, Adult ED, Syncope (Fainting), Minor Head Injury, Generalized Neck Pain Add. Discharge Instructions: Tylenol or ibuprofen as needed for pain Follow-up with your primary care provider for continuation of care and recheck of today's complaint ALBERTO TOMLIN DO Sep 25, 2020 11:24
[2020-09-25 11:58] LABS: BASOPHILS % (AUTO) 0 % (0-10); EOSINOPHILS # (AUTO) 0.1 10^3/uL (0.0-0.3); EOSINOPHILS % (AUTO) 1 % (0-10); HEMATOCRIT 44 % (40-54); HEMOGLOBIN 15.2 G/DL (13.3-17.7); LYMPHOCYTES # (AUTO) 1.9 X 10^3 (1.0-4.0); LYMPHOCYTES % (AUTO) 27 % (12-44); MEAN CORPUSCULAR HEMOGLOBIN 31 PG (25-34); MEAN CORPUSCULAR HGB CONC 35 G/DL (32-36); MEAN CORPUSCULAR VOLUME 91 FL (80-99); MEAN PLATELET VOLUME 10.3 FL (7.4-10.4); MONOCYTES # (AUTO) 0.6 X 10^3 (0.0-1.0); MONOCYTES % (AUTO) 8 % (0-12); NEUTROPHILS # (AUTO) 4.6 X 10^3 (1.8-7.8); NEUTROPHILS % (AUTO) 64 % (42-75); PLATELET COUNT 289 10^3/uL (130-400); WHITE BLOOD COUNT 7.2 10^3/uL (4.3-11.0)
[2020-09-25 12:10] LABS: BACTERIA,URINE NEGATIVE /HPF; BILIRUBIN,URINE NEGATIVE (NEGATIVE); CLARITY,URINE CLEAR; COLOR,URINE YELLOW; GLUCOSE, URINE (UA) NEGATIVE (NEGATIVE); KETONES,URINE NEGATIVE (NEGATIVE); LEUKOCYTE ESTERASE ,URINE NEGATIVE (NEGATIVE); NITRITE,URINE NEGATIVE (NEGATIVE); PROTEIN,URINE NEGATIVE (NEGATIVE); SQUAMOUS EPITHELIAL CELL,UR RARE /HPF; WBC,URINE RARE /HPF
[2020-09-25 12:13] LABS: MAGNESIUM 2.1 MG/DL (1.6-2.4)
[2020-09-25 12:14] LABS: AMPHETAMINE SCREEN, URINE NEGATIVE (NEGATIVE); BARBITURATE SCREEN URINE POSITIVE (NEGATIVE); BENZODIAZEPINES SCREEN URINE POSITIVE (NEGATIVE); CANNABINOID SCREEN, URINE POSITIVE (NEGATIVE); COCAINE SCREEN URINE NEGATIVE (NEGATIVE); METHADONE STAT NEGATIVE (NEGATIVE); METHAMPHETAMINE SCREEN URINE S NEGATIVE (NEGATIVE); OPIATE SCREEN URINE NEGATIVE (NEGATIVE); OXYCODONE STAT NEGATIVE (NEGATIVE); TRICYCLIC ANTIDEPRESSANTS SCRE NEGATIVE (NEGATIVE)
[2020-09-25 12:15] LABS: PROPOXYPHENE STAT NEGATIVE (NEGATIVE)
[2020-09-25 12:24] LABS: CARBON DIOXIDE 26 MMOL/L (21-32); CHLORIDE 103 MMOL/L (98-107); POTASSIUM 4.6 MMOL/L (3.6-5.0); SODIUM 140 MMOL/L (135-145)
[2020-09-25 12:25] LABS: ALANINE AMINOTRANSFERASE 14 U/L (0-55); ALBUMIN 4.6 GM/DL (3.2-4.5); ALKALINE PHOSPHATASE 106 U/L (40-136); BILIRUBIN,TOTAL 0.4 MG/DL (0.1-1.0); BUN/CREATININE RATIO 11; CALCIUM 9.3 MG/DL (8.5-10.1); CREATININE SERUM 1.08 MG/DL (0.60-1.30); GFR ESTIMATED > 60; GLUCOSE 103 MG/DL (70-105)
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
--- NOTE | 2020-09-25 12:33 | Diagnostic Imaging Report ---
INDICATION: Fall with back pain AP and lateral views of the thoracic spine are obtained. The thoracic vertebrae appear normal in height and alignment. There is no fracture or subluxation. There are mild osteophytes throughout the mid thoracic spine. IMPRESSION: Mild degenerative changes with no acute abnormality of the thoracic spine. Dictated by: Dictated on workstation # [id number]
[2020-09-25 12:46] VITALS: BP 104/72
== END 2020-09-25 12:48 | disposition home or self-care (01) ==
LOC: EDUNIT# 11:17 → ER FS 11:20
DX: S09.90XA Unspecified injury of head, initial encounter (principal); S16.1XXA Strain of muscle, fascia and tendon at neck level, initial encounter; S00.81XA Abrasion of other part of head, initial encounter; R55 Syncope and collapse; G25.2 Other specified forms of tremor; F41.9 Anxiety disorder, unspecified; F32.9 Major depressive disorder, single episode, unspecified; E78.00 Pure hypercholesterolemia, unspecified; G43.909 Migraine, unspecified, not intractable, without status migrainosus; K21.9 Gastro-esophageal reflux disease without esophagitis; K59.09 Other constipation; J44.9 Chronic obstructive pulmonary disease, unspecified; Z87.891 Personal history of nicotine dependence; Z79.51 Long term (current) use of inhaled steroids; Z79.52 Long term (current) use of systemic steroids; Z86.718 Personal history of other venous thrombosis and embolism; Z88.0 Allergy status to penicillin; Z88.1 Allergy status to other antibiotic agents; Z88.2 Allergy status to sulfonamides; W18.30XA Fall on same level, unspecified, initial encounter
CPT/HCPCS: 36415; 70450; 71045; 72072; 72125; 80053; 80306; 81000; 83605; 83735; 84484; 85025; 85027; 86141; 93005; 93041; 99284; G0480; 80320

== ENCOUNTER → 2020-12-13 | Outpatient (CLI) | payer BC, OTHER ==
--- NOTE | 2020-12-13 16:48 | Diagnostic Imaging Report ---
PROCEDURE: MR imaging cervical spine without contrast. TECHNIQUE: Multiplanar, multisequence MR imaging of the cervical spine was performed without contrast. INDICATION: Neck pain with bilateral upper extremity radiculopathy. COMPARISON: 09/25/2020. FINDINGS: No acute fracture or dislocation is seen in the cervical spine. There is focal kyphosis of the cervical spinal cord centered at the C5 level. The vertebral body heights and disc spaces are well maintained. The bone marrow signal is unremarkable. No focal osseous lesions. The craniocervical junction is maintained. The cervical spinal cord demonstrates normal intrinsic signal. No epidural collections are seen. The included brainstem and posterior fossa have normal appearance. Multilevel degenerative changes are seen in the cervical spine with posterior disc bulges and uncovertebral arthropathy. C2-C3: No significant spinal canal or foraminal stenosis. C3-C4: No significant spinal canal or foraminal stenosis. C4-C5: No significant spinal canal or foraminal stenosis. C5-C6: Posterior disc bulge with left paracentral protrusion, buckling of the ligamentum flavum and uncovertebral arthropathy results in moderate spinal canal stenosis, moderate left lateral recess stenosis, and moderate bilateral foraminal stenosis. C6-C7: Posterior disc bulge and uncovertebral arthropathy results in mild spinal canal narrowing and mild bilateral foraminal narrowing. C7-T1: No significant spinal canal or foraminal stenosis. The soft tissues of neck are unremarkable. IMPRESSION: 1. No acute fracture or dislocation of the cervical spine. 2. Multilevel degenerative changes in the cervical spine, greatest at C5-C6. Dictated by: Dictated on workstation # [id number]
== END ==
LOC: RAD 15:30
PROVIDERS: ATTEND Internal Medicine
DX: M47.22 Other spondylosis with radiculopathy, cervical region (principal)
CPT/HCPCS: 72141

== ENCOUNTER → 2021-12-17 | Outpatient (CLI) | payer SELFPAY ==
[~2021-12-17] VITALS: Ht 188 cm; Wt 86.4 kg
[~2021-12-17] MED LIST changes: +CYCL10TA25 PO; -CYCL10TA9 PO; +GADOTERATE 0.5 MMOL/ML (CLARISCAN) 15 ML VIAL IV ONE; +IOHEXOL 240 MGI/ML 50 ML (OMNIPAQUE) VIAL IV ONE; +MONT-40 PO; -MONT10TA32 PO
--- NOTE | 2021-12-17 15:51 | Diagnostic Imaging Report ---
INDICATION: Left shoulder pain. PROCEDURE: Patient was brought to the procedure room and placed on table in the supine position. Skin of the left shoulder was prepped and draped in the usual sterile fashion. Small amount of 1% lidocaine was utilized for local anesthesia. 22-gauge needle was advanced and placed with its tip in the rotator interval. A 15 mm solution of iodinated contrast, normal saline and gadolinium was injected under fluoroscopic observation. 24 seconds of fluoroscopic time was utilized. Needle was removed and hemostasis was obtained. Patient tolerated the procedure well and was sent to MRI in satisfactory condition. IMPRESSION: Successful left shoulder injection of gadolinium contrast solution, using fluoroscopy. Dictated by: Dictated on workstation # [id number]
--- NOTE | 2021-12-17 17:00 | Diagnostic Imaging Report ---
PROCEDURE: MRI left joint upper extremity with contrast. TECHNIQUE: Multiplanar, multisequence contrast-enhanced MRI of the left upper extremity was accomplished. INDICATION: Fell in August 2021. Shoulder pain since. EXAMINATION: MRI of the left shoulder without contrast 12/17/2021. FINDINGS: The supraspinatus and infraspinatus tendons appear intact. There is mild bursal sided fraying of the cranial aspect of the subscapularis tendon with no full-thickness tear appreciated. There is prominence and mild internal hyperintensity throughout the course of the long head of biceps tendon without discontinuity. The intracapsular aspect of the biceps tendon demonstrates a longitudinal split tear. The biceps tendon anchor is intact. There is a tear throughout the superior labrum and this involves the anterior and posterior superior labrum and extends up along the anterior labrum inferiorly to just posterior to the 6 o'clock position. Just anterior to the labrum and glenoid there is a lobulated septated cystic collection measuring approximately 1.2 x 1.8 x 0.6 cm in size, most consistent with a para labral cyst. Muscle volume is preserved. Visualized axilla unremarkable. There is narrowing, spurring and edema at the acromioclavicular joint space. Findings consistent with osteoarthritis. No acute osseous abnormality is appreciated. IMPRESSION: 1. Diffuse SLAP tear which extends to the inferior labrum with an adjacent complex para labral cyst anterior to the glenoid. 2. Bursal sided fraying of the cranial fibers of the subscapularis tendon with no full-thickness rotator cuff tear appreciated. The supraspinatus and infraspinatus tendons intact. 3. Longitudinal split tear of the proximal long head of biceps tendon without discontinuity or retraction. Dictated by: Dictated on workstation # [id number]
== END ==
LOC: RAD 13:30
PROVIDERS: ATTEND Nurse Practitioner
DX: M75.102 Unspecified rotator cuff tear or rupture of left shoulder, not specified as traumatic (principal)
CPT/HCPCS: 23350; 73040; 73222

== ENCOUNTER 2022-11-12 08:36 | Outpatient (CLI) | payer OTHER ==
[~2022-11-12] VITALS: Ht 188 cm; Wt 82.6 kg
[~2022-11-12 08:36] MED LIST changes: -GADOTERATE 0.5 MMOL/ML (CLARISCAN) 15 ML VIAL IV ONE; -IOHEXOL 240 MGI/ML 50 ML (OMNIPAQUE) VIAL IV ONE
[2022-11-12] MEDS ORDERED: ALPR0.5T7 PO (09:42)
[2022-11-12] MEDS ORDERED: TOPI100T11 PO (09:42)
[2022-11-12] MEDS ORDERED: PRIM50TA33 PO (09:42)
[2022-11-12] MEDS ORDERED: BUSP15TA60 PO (09:42)
[2022-11-12] MEDS ORDERED: LAMO100T5 PO (09:42)
[2022-11-12] MEDS ORDERED: CARB1TAB32 PO (09:42)
== END 2022-11-12 09:47 | disposition home or self-care (01) ==
LOC: PREOP 08:36
PROVIDERS: ATTEND Surgery
DX: Z01.818 Encounter for other preprocedural examination (principal)

== ENCOUNTER 2022-11-16 06:57 | Day surgery (SDC) | payer OTHER ==
[~2022-11-16] VITALS: Ht 188 cm; Wt 82.6 kg
[~2022-11-16 06:57] MED LIST changes: +ALPR0.5T7 PO; +BUSP15TA60 PO; +CARB1TAB32 PO; +LAMO100T5 PO; +PRIM50TA33 PO; +TOPI100T11 PO
[2022-11-16] MEDS ORDERED: LACTATED RINGERS 1,000 ML IV STA (07:03)
[2022-11-16 07:20] VITALS: BP 108/70
[2022-11-16] MEDS ORDERED: PROPOFOL INJECTION 50 ML IV ONE (07:34)
--- NOTE | 2022-11-16 07:34 | Progress Note-Pre Operative ---
Pre-Operative Progress Note Date H&P Reviewed: November 16, 2022 Time H&P Reviewed: 07:33 History & Physical: H&P Reviewed, Patient Examed, No changes noted Pre-Operative Diagnosis: hx polyps AURELIA COLÓN DO November 16, 2022 07:34
[2022-11-16 08:10] VITALS: BP 132/63
[2022-11-16] MEDS ORDERED: ONDANSETRON 4 MG/2 ML (SDV) Z0FRAN ONE (08:10)
[2022-11-16 08:20] VITALS: BP 125/57
--- NOTE | 2022-11-16 08:34 | Anesthesia-General Post-Op ---
MAC Patient Condition Mental Status/LOC: Same as Preop Cardiovascular: Satisfactory Nausea/Vomiting: Absent Respiratory: Satisfactory Pain: Controlled Complications: Absent Post Op Complications Complications None Follow Up Care/Instructions Patient Instructions None needed. Anesthesiology Discharge Order Discharge Order Patient is doing well, no complaints, stable vital signs, no apparent adverse anesthesia problems. No complications reported per nursing. MARIVEL JOHNSON DO November 16, 2022 08:34
--- NOTE | 2022-11-16 08:38 | Discharge Inst-Simple/Standard ---
Discharge Inst-Standard Patient Instructions/Follow Up Plan of Care/Instructions/FU: 2 weeks amando Activity as Tolerated: Yes Discharge Diet: Regular Diet AURELIA COLÓN DO November 16, 2022 08:38
--- NOTE | 2022-11-16 08:39 | Progress Note-Post Operative ---
Post-Operative Progess Note Surgeon (s)/Anodize Machine Operator (s) Surgeon AURELIA COLÓN DO Anodize Machine Operator: na Pre-Operative Diagnosis hx polyps Post-Operative Diagnosis colon polyps Procedure & Operative Findings Date of Procedure 11/16/22 Procedure Performed/Findings colonoscopy with hot bx polypectomy Anesthesia Type per [facility] Estimated Blood Loss Estimated blood loss (mL): none Specimens/Packing Specimens Removed colon polyps x 4 AURELIA COLÓN DO November 16, 2022 08:39
[2022-11-16 08:45] VITALS: BP 125/57
--- NOTE | 2022-11-16 10:17 | OPERATIVE REPORT ---
DATE OF SERVICE: 11/16/2022 PREOPERATIVE DIAGNOSIS: History of polyps. POSTOPERATIVE DIAGNOSIS: Colon polyps. PROCEDURE: Colonoscopy with hot biopsy polypectomy x4. SURGEON: Aurelia Ugarte DO ANESTHESIA: Per MDA. ESTIMATED BLOOD LOSS: None. COMPLICATIONS: None. INDICATIONS: The patient is a 57-year-old male with history of polyps. He understands risks and benefits of procedure and wishes to proceed. Consent was signed in chart. DESCRIPTION OF PROCEDURE: The patient was taken to endoscopy suite, placed in left lateral recumbent position. Timeout was performed. Digital rectal exam was performed. No palpable polyps, masses or ulcerations. Scope was inserted in the rectum, advanced all the way to the cecum with minimal difficulty. Prep was adequate. Scope was slowly retracted back. No polyps, masses or ulcerations in the cecum. Ascending colon had a small polyp. Hot biopsy polypectomy was performed. Scope was then continuously retracted back. No polyps, masses or ulcerations within the ascending, transverse colon, and descending colon. In the sigmoid colon, a small polyp was present, which hot biopsy polypectomy was performed. Scope was then continuously retracted back in the rectum where 2 small polyps were present, which hot biopsy polypectomy was performed. Scope was then retroflexed noting no the pathology. Scope was returned to its normal position, slowly withdrawn until completely removed. The patient tolerated the procedure well without any complications, taken to recovery room in stable condition. RECOMMENDATIONS: The patient will have repeat colonoscopy in 5 years. Any issues before that, be seen at that time. The patient will follow up on pathology in 2 weeks. Job ID: [id number] DocumentID: [id number] Dictated Date: 11/16/2022 08:42:27 [employer] Date: 11/16/2022 10:15:00 Dictated By: AURELIA UGARTE DO
== END 2022-11-16 08:47 | disposition home or self-care (01) ==
LOC: ENDO 06:57
PROVIDERS: ATTEND Surgery
DX: Z12.11 Encounter for screening for malignant neoplasm of colon (principal); D12.2 Benign neoplasm of ascending colon; D12.5 Benign neoplasm of sigmoid colon; K62.1 Rectal polyp; Z87.891 Personal history of nicotine dependence